=== PATIENT | female | born 1945 | race Caucasian/White ===

== ENCOUNTER 2018-12-08 12:37 | Inpatient (IN) | payer MEDICARE ==
--- NOTE | 2018-12-08 12:49 | ED ---
SOB HPI - General Chief Complaint: Shortness of Breath Stated Complaint: STEMI Time Seen by Provider: 12/08/18 12:37 Source: patient, EMS, RN notes reviewed Mode of arrival: EMS - History of Present Illness Initial Comments: This is a 71-year-old female with a prior history of coronary artery disease and stent placement status July started having shortness of breath about 11 to 11:30 this morning. She was found by paramedics to be dyspneic with a pulse ox in the 70s. This is on room air she does use medication at home we'll she denies any history of COPD or emphysema. She is a nonsmoker she was brought in by EMS she was found have evidence of an inferior wall myocardial infarction with ST elevations in leads II, III, and F aVF she became profoundly bradycardic and hypotensive she was given atropine 0.5 mg 2 as well as. She did seem to respond to this. A STEMI alert was called I did notify cardiology. Dr. Judd did come the emergency department upon the patient's arrival. Patient was noted be nauseated. Patient reports she is on Coumadin. MD Complaint: shortness of breath - Related Data Home Medications Medication Instructions Recorded Confirmed Atorvastatin [Lipitor] 80 mg PO DAILY 12/08/18 12/08/18 Bimatoprost [Lumigan .01% Ophth 1 drop RIGHT EYE DAILY 12/08/18 12/08/18 Soln] Budesonide/Formoterol Fumarate 1 puff INHALATION RT-BID 12/08/18 12/08/18 [Symbicort 80-4.5 Mcg Inhaler] Cholecalciferol [Vitamin D3 (25 1,000 unit PO DAILY 12/08/18 12/08/18 Mcg = 1000 Iu)] Clopidogrel [Plavix] 75 mg PO DAILY 12/08/18 12/08/18 Diltiazem Cd [Cardizem Cd] 120 mg PO DAILY 12/08/18 12/08/18 Dulaglutide [Trulicity] 1.5 mg SQ Q7D 12/08/18 12/08/18 Ferrous Sulfate [Feosol] 325 mg PO DAILY 12/08/18 12/08/18 Folic Acid 1 mg PO DAILY 12/08/18 12/08/18 INSULIN LISPRO (humaLOG) [humaLOG] 24 units SQ TID-W/MEALS 12/08/18 12/08/18 Insulin Detemir (Levemir) [Levemir] 48 unit SQ HS 12/08/18 12/08/18 Insulin Detemir (Levemir) [Levemir] 60 unit SQ DAILY 12/08/18 12/08/18 Isosorbide Mononitrate ER [Imdur] 30 mg PO DAILY 12/08/18 12/08/18 Lisinopril [Zestril] 5 mg PO DAILY 12/08/18 12/08/18 Warfarin [Coumadin] 1.25 mg PO DIRECTED 12/08/18 12/08/18 Warfarin [Coumadin] 1.25 mg PO DAILY 12/08/18 12/08/18 Allergies Allergy/AdvReac Type Severity Reaction Status Date / Time phenytoin [From Dilantin] Allergy Rash/Hives Verified 12/08/18 12:50 sulfamethoxazole Allergy Rash/Hives Verified 12/08/18 12:50 [From Bactrim] trimethoprim [From Bactrim] Allergy Rash/Hives Verified 12/08/18 12:50 Review of Systems ROS Statement: Those systems with pertinent positive or pertinent negative responses have been documented in the HPI. ROS Other: All systems not noted in ROS Statement are negative. General Exam - General Exam Comments Initial Comments: Is a well-developed well-nourished awake alert anxious appearing female General appearance: alert, anxious, in distress Head exam: Present: atraumatic, normocephalic, normal inspection Eye exam: Present: normal appearance, PERRL, EOMI. Absent: scleral icterus, conjunctival injection, periorbital swelling ENT exam: Present: normal exam, mucous membranes moist Neck exam: Present: normal inspection (No stridor JVD or bruits), full ROM, other Respiratory exam: Present: wheezes, decreased breath sounds Cardiovascular Exam: Present: regular rate GI/Abdominal exam: Present: soft, normal bowel sounds. Absent: distended, tenderness, guarding, rebound, rigid Extremities exam: Present: normal inspection, full ROM, normal capillary refill. Absent: tenderness, pedal edema, joint swelling, calf tenderness Back exam: Present: normal inspection Neurological exam: Present: alert, oriented X3, CN II-XII intact Psychiatric exam: Present: normal affect, anxious Skin exam: Present: dry, intact, cyanosis, diaphoretic. 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 Patient did get to do an absent route. This did seem to help her breathing initially. Reevaluation #2: 12/08/18 12:57 Attempts made to get records from [facility]. This is where she had a catheterization done. Reevaluation #3: 12/08/18 12:58 Attempt made to get EKG in this emergency department unsuccessful the patient did refuse initially. EKG submitted by EMS showed ST elevation in leads II, III, and F aVF with reciprocal aVL changes also ST depressions in leads 1 and V2 and V1 noted. Medical Decision Making - Medical Decision Making The patient will be admitted then go directly to [facility]. Dr. Judd did come the emergency department see the patient. Was noted be nauseated also hypotensive and bradycardic. Dr. Alexis was notified for city call. - Radiology Data Radiology results: image reviewed (Imaging was reviewed no evidence of increased pulmonary vascular markings poor inspiratory effort.) Critical Care Time Critical Care Time: Yes Critical Care Time: 31 minutes of critical care time which includes initial presentation with history physical labs x-rays multiple reevaluation of the patient discussion with the admitting physician Dr. Alexis discussion with Dr. Judd from cardiology as well as Dr. Xiong documentation of the above and initial admission orders. Disposition Clinical Impression: Acute ST elevation myocardial infarction, AMI inferior wall, Hypotensive episode, Bradycardia Disposition: ADMITTED IP TO THIS HOSP Condition: Critical
[2018-12-08] MEDS ORDERED: SODIUM CHLORIDE 0.9% 500 ML 500 ML IV ONE (12:55)
[2018-12-08] MEDS ORDERED: SODIUM CHLORIDE 0.9% 1,000 ML IV ONE (13:03)
[2018-12-08] MEDS ORDERED: fentaNYL (PF) 50 MCG/ML 2 ML AMP ONE (13:04)
[2018-12-08] MEDS ORDERED: fentaNYL (PF) 50 MCG/ML 2 ML AMP IVP ONE (13:05)
[2018-12-08] MEDS ORDERED: LIDOCAINE 1% INJ 10MG/ML (20 ML MDV) SQ ONE (13:06)
[2018-12-08] MEDS ORDERED: TICAGRELOR 90 MG TAB ONE (13:12)
[2018-12-08] MEDS ORDERED: BIVALIRUDIN BOLUS 250 MG/50 ML IV ONE (13:12)
[2018-12-08 13:13] LABS: Glucose,Whole Blood 441 mg/dL (75-99)
[2018-12-08] MEDS ORDERED: TICAGRELOR 90 MG TAB PO ONE (13:13)
[2018-12-08] MEDS ORDERED: BIVALIRUDIN 250 MG in SODIUM CHLORIDE 0.9% 50 ML IV ONE ×2 (13:13→13:54)
--- NOTE | 2018-12-08 13:13 | P.CRDCN ---
History of Present Illness Consult date: 12/08/18 Requesting physician: Diane Alexis Reason for Consult (text): Inferior ST elevation [place] Chief complaint: Shortness of breath, chest pressure History of present illness: This is a 73-year-old female with known history of diabetes, hypertension, hyperlipidemia, obesity, history of a blood clot in the right lower extremity for which the patient is on Coumadin, she also has a history of coronary artery disease for which she has underwent stent placement at [facility], exact details of that currently unavailable. Patient was brought to the emergency center via EMS, EMS was called because the patient states that she could not breathe. She did have a pressure sensation in her chest as well. On arrival there and EKG was performed by EMS which showed ST elevation in the inferior leads and patient was brought to [facility]. On the way here, patient did become quite hypotensive and bradycardic requiring atropine administration. On her arrival to the emergency room, she continued to have ST elevation in the inferior leads, states that she was quite nauseated short of breath and felt like she was going to pass out. Her rhythm showed normal sinus rhythm with persistence in ST elevation in the inferior leads. Her blood pressure was 87/40. Patient was advised that she would need to go to the [facility] and have an emergent cardiac catheterization performed, the risks and the benefits were explained to the patient in detail and she was willing to proceed. We do not currently have any lab data, or report of any chest x-ray. Patient was brought directly to the [facility]. Her home medications included Lipitor 80 mg daily, Coumadin 1.25 mg one daily week and 2.56 days a week, Plavix 75 mg daily, Imdur 30 mg daily, B12, folic acid, Levemir, lisinopril 5 mg daily, Symbicort, vitamin D, Cardizem 120 mg daily, Humalog insulin and Trulicity once a week. Past Medical History Past Medical History: Unable to Obtain History of Any Multi-Drug Resistant Organisms: None Reported Past Surgical History: Heart Catheterization With Stent Past Psychological History: No Psychological Hx Reported Smoking Status: Unknown if ever smoked Past Alcohol Use History: Unable to Obtain Past Drug Use History: Unable to Obtain Medications and Allergies Home Medications Medication Instructions Recorded Confirmed Type Atorvastatin [Lipitor] 80 mg PO DAILY 12/08/18 12/08/18 History Bimatoprost [Lumigan .01% Ophth 1 drop RIGHT EYE DAILY 12/08/18 12/08/18 History Soln] Cholecalciferol [Vitamin D3 (25 1,000 unit PO DAILY 12/08/18 12/08/18 History Mcg = 1000 Iu)] Clopidogrel [Plavix] 75 mg PO DAILY 12/08/18 12/08/18 History Diltiazem Cd [Cardizem Cd] 120 mg PO DAILY 12/08/18 12/08/18 History Dulaglutide [Trulicity] 0.75 mg SQ Q7D 12/08/18 12/08/18 History Ferrous Sulfate [Feosol] 325 mg PO DAILY 12/08/18 12/08/18 History Folic Acid 1 mg PO DAILY 12/08/18 12/08/18 History INSULIN LISPRO (humaLOG) [humaLOG] 24 units SQ TID-W/MEALS 12/08/18 12/08/18 History Insulin Detemir (Levemir) [Levemir] 48 unit SQ HS 12/08/18 12/08/18 History Insulin Detemir (Levemir) [Levemir] 60 unit SQ DAILY 12/08/18 12/08/18 History Isosorbide Mononitrate ER [Imdur] 30 mg PO DAILY 12/08/18 12/08/18 History Lisinopril [Zestril] 5 mg PO DAILY 12/08/18 12/08/18 History Warfarin [Coumadin] 1.25 mg PO DAILY 12/08/18 12/08/18 History Warfarin [Coumadin] 1.25 mg PO DAILY 12/08/18 12/08/18 History Allergies Allergy/AdvReac Type Severity Reaction Status Date / Time phenytoin [From Dilantin] Allergy Rash/Hives Verified 12/08/18 12:50 sulfamethoxazole Allergy Rash/Hives Verified 12/08/18 12:50 [From Bactrim] trimethoprim [From Bactrim] Allergy Rash/Hives Verified 12/08/18 12:50 Physical Exam Vitals: Vital Signs Temp Pulse Pulse Resp BP Pulse Ox 12/08/18 12:45 53 L 12/08/18 12:38 97.1 F L 53 L 12 87/42 100 Intake and Output 12/07/18 12/08/18 12/08/18 22:59 06:59 14:59 Other: Weight 90.718 kg PHYSICAL EXAMINATION: GENERAL: 73-year-old female in mild distress at the time of my examination HEENT: Head is atraumatic, normocephalic. Pupils equal, round. Sclera anicteric. Conjunctiva are clear. Mucous membranes of the mouth are moist. Neck is supple. There is no elevated jugular venous pressure. No carotid bruit is heard. HEART EXAMINATION: Heart S1 and S2, distant CHEST EXAMINATION: Revealed decreased air exchange throughout ABDOMEN: Soft, obese, nontender. 2 separate umbilicus hernia is noted. Bowel sounds are heard. No organomegaly noted. EXTREMITIES:1+ peripheral pulses with evidence of peripheral edema and no calf tenderness noted. NEUROLOGIC patient is awake, alert and oriented 3 . . Results Intake and Output 12/07/18 12/08/18 12/08/18 22:59 06:59 14:59 Other: Weight 90.718 kg Patient Weight 12/09/18 06:59 Weight 90.718 kg EKG Interpretations (text) EKG shows a normal sinus rhythm with ST elevation in the inferior leads and lateral ST depression depression noted. Assessment and Plan Plan: Assessment and plan #[address] elevation myocardial infarction #2 history of coronary artery disease with prior stent placements #3 hypertension history #4 hyperlipidemia #5 diabetes #6 obesity #7 history of blood clots to the right lower extremity for which the patient was on Coumadin Plan Patient was advised to emergently go to the cardiac catheterization lab, for heart catheterization. Risks and benefits were explained to her in detail. Further recommendations will follow. DNP note has been reviewed, I agree with a documented findings and plan of care. Patient was seen and examined.
--- NOTE | 2018-12-08 13:13 | XR ---
EXAMINATION TYPE: XR chest 1V portable DATE OF EXAM: 12/08/2018 COMPARISON: NONE HISTORY: Chest pain TECHNIQUE: Single frontal view of the chest is obtained. FINDINGS: Limited inspiration with prominent interstitium. No pleural effusion or pneumothorax. Arth ropathy of the shoulders. Heart size normal. No consolidation. IMPRESSION: Correlate for mild venous congestion or interstitial pneumonitis.
[2018-12-08] MEDS ORDERED: IOPAMIDOL-370 125ML BTL INJ ONE (13:55)
[2018-12-08 14:02] LABS: Potassium 4.9 mmol/L (3.5-5.1)
[2018-12-08 14:03] LABS: Creatine Kinase 156 U/L (30-135)
[2018-12-08] MEDS ORDERED: IOPAMIDOL-370 100ML BTL INJ ONE (14:05)
[2018-12-08 14:07] LABS: Basophils % (A) 0 %; Eosinophils % (A) 1 %; HGB 10.3 gm/dL (11.4-16.0); Lymphocytes # (A) 0.5 k/uL (1.0-4.8); Lymphocytes % (A) 6 %; MCH 29.9 pg (25.0-35.0); MCHC 32.3 g/dL (31.0-37.0); MCV 92.5 fL (80.0-100.0); Mean Platelet Volume 7.6; Monocytes # (A) 0.4 k/uL (0-1.0); Monocytes % (A) 5 %; Neutrophils # (A) 7.5 k/uL (1.3-7.7); Neutrophils % (A) 88 %; Platelet Count 246 k/uL (150-450); RBC 3.46 m/uL (3.80-5.40); RDW 13.8 % (11.5-15.5); WBC 8.5 k/uL (3.8-10.6)
[2018-12-08 14:15] LABS: Creatine Kinase MB 2.7 ng/mL (0.0-2.4); Troponin I <0.012 ng/mL (0.000-0.034)
[2018-12-08] MEDS ORDERED: NITROGLYCERIN SL TABS 0.4 MG TAB SUBLINGUAL PRN (14:16)
[2018-12-08] MEDS ORDERED: ATROPINE SULFATE 0.1 MG/ML 10ML SYRINGE IV PRN (14:16)
[2018-12-08] MEDS ORDERED: ZOLPIDEM 5 MG TAB PO PRN (14:16)
[2018-12-08] MEDS ORDERED: RX INFO: IV CONTRAST WAS GIVEN 1 EACH MISC MISCELLANE PRN (14:16)
[2018-12-08] MEDS ORDERED: MAG HYDROX/AL HYDROX/SIMETH 30 ML CUP PO PRN (14:16)
[2018-12-08 14:25] LABS: Glucose,Whole Blood 422 mg/dL (75-99)
[2018-12-08] MEDS ORDERED: SODIUM CHLORIDE 0.9% 1,000 ML IV SCH (14:30)
[2018-12-08] MEDS ORDERED: NON-FORMULARY DRUG (Dulaglutide [Trulicity] 1.5 MG) SQ SCH (14:30)
--- NOTE | 2018-12-08 14:39 | CC ---
CARDIAC CATHETERIZATION REPORT Mrs Lombardi is a 73-year-old female, history of hypertension, hyperlipidemia, diabetes mellitus, multiple stenting of the right coronary artery done in [facility], most recently in July of 2017 who presented to the emergency room with an acute inferior myocardial infarction. In view of that, recommendation made regarding cardiac catheterization. The procedures, risks and complications were discussed with the patient who is in full understanding and agreement. PROCEDURE: Patient was brought to labor relations director in a fasting semi-sedated state after receiving fentanyl and Benadryl and achieving moderate conscious sedated state. Using Xylocaine anesthesia and Seldinger technique, a 6-Romanian sheath was introduced in the right femoral artery. Right coronary angiography was performed using 6-Romanian FR4 guiding catheter. After performing angioplasty and stenting, the 6-Romanian left Jessica catheter was used and images of the left coronary artery system were obtained. Following that, a 6-Romanian tight pigtail catheter was introduced in the left ventricle and pressures were calculated. Following that, catheter and sheaths were removed. Hemostasis was obtained with deployment of an Angio-Seal. There was no immediate complication. The patient was returned to his room in stable condition. FINDINGS: FLUOROSCOPY: There was calcification involving the coronary tree. LEFT MAIN: This is a large-sized vessel, bifurcating into left circumflex, left anterior descending artery. Left main coronary artery has no evidence of high-grade stenosis. LEFT ANTERIOR DESCENDING ARTERY: This is a large-sized vessel, reaching toward the apex with a wraparound apex segment, giving rise to a diagonal branch of moderate caliber in mid segment. The left anterior descending artery proximally has 20% to 30%. The diagonal branch has a 40% to 50% plaque in the proximal segment. The rest of the vessel has no high-grade stenosis. LEFT CIRCUMFLEX: This is a nondominant vessel, giving rise to obtuse marginal branch. The left circumflex is quite tortuous proximally. It has a plaque of 30% to 40% in the mid segment. The rest of the vessel has no high-grade stenosis. RIGHT CORONARY ARTERY: This vessel is totally occluded proximally with no antegrade flow. There is a long segment of stented vessel. The occlusion is at the beginning of the proximal edge of the stent. LEFT VENTRICULOGRAM: Left ventriculogram is not performed. HEMODYNAMICS: There was no gradient across the aortic valve. The left ventricular end-diastolic pressure was 16 to 20 mmHg. CONCLUSION: 1. Acutely occluded right coronary artery and a long-stented segment. 2. Calcified coronary arteries. 3. Mild disease in the left anterior descending artery and the left circumflex. RECOMMENDATION: In view of finding anatomy, I recommend proceeding with angioplasty and stenting. The procedures, risks and complication were discussed with the patient who is in full understanding and agreement. MMODL / IJN: [id number] /
--- NOTE | 2018-12-08 14:42 | PTCA ---
PERCUTANEOUSTRANS CORORONARY ANGIOGRAPHY Mrs. Lombardi is a 73-year-old female with known history of hypertension, hyperlipidemia, diabetes mellitus, and multiple stenting of the right coronary artery who presented with an acute inferior myocardial infarction. She underwent cardiac catheterization, was found to have a totally occluded right coronary artery. In view of that, recommendation was made regarding angioplasty and stenting. The procedures, risks and complication were discussed with the patient, who is in full understanding and agreement. PROCEDURE: Using the 6-Chilean FR4 guiding catheter, a 0.014 balanced medium weight J-wire with the help of a Fine Cross catheter was advanced across the total occlusion, positioned in the distal vessel. Subsequently, a 2.5 x 12 mm Trek balloon was advanced and multiple inflations throughout the vessel at maximum of 14 atmospheres were done. Following that, the balloon was removed and another 0.014 balanced medium weight J-wire was advanced next to the first one in a krystal fashion and a 2.75 x 8 mm NC Trek balloon was advanced in the distal segment and inflation up to 14 atmospheres was done. Following that, the balloon was removed and a 2.5 x 15 mm Xience Yudy stent was deployed distally and post dilated at 16 atmospheres. Following that, the balloon was removed and a 2.75 x 15 mm NC Trek balloon was advanced and multiple inflations throughout the course of the prior stented segment were performed at a maximum of 14 atmospheres. After the last inflation, after appropriate wait, the balloon and the guidewire were withdrawn back in the guiding catheter. Images were obtained and repeated. Those images reveal stable successful stenting. At that point, left coronary angiogram was performed as well as measurement of the left ventricular end-diastolic pressure was performed from the catheter and sheath were removed. Hemostasis was obtained with deployment of an Angio-Seal. There was no immediate complication. Patient was returned to room in stable condition. Of note, the patient received Angiomax per protocol as well as oral loading dose of Brilinta. She had no chest discomfort or EKG changes at the end of the procedure. RESULTS: Successful recanalization of a long stented segment of the right coronary artery with reduction of stenosis from 100% to less than 5%. RECOMMENDATION: Patient be continued on aspirin, Brilinta, beta anna, and statin. The importance of dual antiplatelet treatment were discussed with the patient and her family and they are in full understanding and agreement. MMODL / IJN: [id number] /
[2018-12-08 15:59] LABS: INR 2.2 (<1.2); Partial Thromboplastin Time 61.6 sec (22.0-30.0); Prothrombin Time 21.9 sec (9.0-12.0)
[2018-12-08] MEDS: INSULIN ASPART (NovoLOG) 100 UNIT/ML VIAL SQ SCH (17:12)
[2018-12-08 17:30] LABS: Glucose,Whole Blood 376 mg/dL (75-99)
[2018-12-08 18:48] LABS: Glucose,Whole Blood 368 mg/dL (75-99)
[2018-12-08] MEDS ORDERED: Magnesium Replacement Protocol 1 EACH MISC MISCELLANE PRN (19:05)
[2018-12-08] MEDS: MAGNESIUM SULFATE-D5W PMX 1 GM in DEXTROSE/WATER 1 100ML.BAG IVPB SCH ×3 (19:31→22:51)
[2018-12-08 19:57] LABS: Glucose,Whole Blood 359 mg/dL (75-99)
[2018-12-08] MEDS ORDERED: INSULIN REGULAR 100 UNIT in SODIUM CHLORIDE 0.9% 100 ML IV SCH (20:30)
[2018-12-08] MEDS: SYMBICORT 80-4.5 MCG INHALER INHALATION SCH (20:31)
[2018-12-08 20:55] LABS: Glucose,Whole Blood 368 mg/dL (75-99)
[2018-12-08] MEDS ORDERED: INSULIN ASPART (NovoLOG) 100 UNIT/ML VIAL SQ SCH (21:00)
[2018-12-08] MEDS: TICAGRELOR 90 MG TAB PO SCH (21:18)
[2018-12-08] MEDS: ATORVASTATIN 80 MG TAB PO SCH (21:18)
[2018-12-08] MEDS: INSULIN DETEMIR (LEVEMIR) 100 UNIT/ML SYR SQ SCH (21:18)
[2018-12-08 21:27] LABS: Appearance,Urine Clear (Clear); Bilirubin,Urine Negative (Negative); Blood,Urine Negative (Negative); Color,Urine Light Yellow; Glucose,Urine (UA) 4+ (Negative); Ketones,Urine Negative (Negative); Leukocyte Esterase,Urine Trace (Negative); Mucus,Urine Rare /hpf; Nitrite,Urine Negative (Negative); Protein,Urine Negative (Negative); RBC,Urine 2 /hpf (0-5); Specific Gravity,Urine 1.034 (1.001-1.035); Squamous Epithelial Cell,Urine 1 /hpf (0-4); Urobilinogen,Urine <2.0 mg/dL (<2.0); WBC,Urine 7 /hpf (0-5)
[2018-12-08 22:34] LABS: Glucose,Whole Blood 325 mg/dL (75-99)
[2018-12-08 23:49] LABS: Glucose,Whole Blood 295 mg/dL (75-99)
[2018-12-09 01:21] LABS: Glucose,Whole Blood 212 mg/dL (75-99)
[2018-12-09 02:05] LABS: Glucose,Whole Blood 183 mg/dL (75-99)
[2018-12-09 03:18] LABS: Glucose,Whole Blood 142 mg/dL (75-99)
[2018-12-09 04:35] LABS: Glucose,Whole Blood 139 mg/dL (75-99)
[2018-12-09 05:47] LABS: Basophils % (A) 0 %; Eosinophils % (A) 0 %; HCT 35.6 % (34.0-46.0); HGB 11.7 gm/dL (11.4-16.0); Lymphocytes # (A) 0.7 k/uL (1.0-4.8); Lymphocytes % (A) 6 %; MCH 30.2 pg (25.0-35.0); MCHC 32.7 g/dL (31.0-37.0); MCV 92.4 fL (80.0-100.0); Mean Platelet Volume 7.4; Monocytes % (A) 9 %; Neutrophils # (A) 8.5 k/uL (1.3-7.7); Neutrophils % (A) 82 %; Platelet Count 287 k/uL (150-450); RBC 3.85 m/uL (3.80-5.40); RDW 14.1 % (11.5-15.5); WBC 10.4 k/uL (3.8-10.6)
[2018-12-09 05:54] LABS: Glucose,Whole Blood 130 mg/dL (75-99)
[2018-12-09 05:57] LABS: INR 1.5 (<1.2); Prothrombin Time 14.9 sec (9.0-12.0)
[2018-12-09 06:04] LABS: Calcium 9.6 mg/dL (8.4-10.2); Potassium 4.5 mmol/L (3.5-5.1)
--- NOTE | 2018-12-09 06:47 | HP ---
HISTORY AND PHYSICAL CHIEF COMPLAINT: Chest discomfort. HISTORY OF PRESENT ILLNESS: This 73-year-old woman with a past medical history of multiple medical problems including hypertension, hyperlipidemia, history of DVT who was on Coumadin, being followed by Dr. Ace in the outpatient setting apparently had chest discomfort. The patient had previous history of cardiac stent placement in [facility]. The patient also feels like heaviness and a feeling of pressure in the anterior part of the chest. Patient came to [facility] and admitted for evaluation and treatment. The EKG showed ST elevation in inferior leads. The patient also has some hypertension and bradycardia. The patient underwent cardiac catheterization and RCA stenting by Cardiology. Patient closely monitored. There is no history of fever or rigors. No history of headache, loss of consciousness. No history of any palpitations, hematochezia or melena at this time. Blood sugars also elevated. Blood sugars already elevated around 300 in the morning, according to her. After admission, it has gone up to 383. PAST MEDICAL HISTORY: History of hypertension, history of hyperlipidemia, history of coronary artery disease and stent. MEDICATIONS: Home medications are: 1. Coumadin 1.25 mg p.r.n. and 1.25 mg daily. 2. Levemir 48 units subcu q.h.s. and 60 units subcu daily. 3. Humalog 24 units t.i.d. with meals. 4. Plavix 75 mg p.o. daily. 5. Lumigan 1 drop right eye daily. 6. Trulicity 1.5 q.7 days, stopped recently. 7. Symbicort 80/4.5 one puff b.i.d. 8. Zestril 5 mg p.o. daily. 9. Imdur 30 mg p.o. daily. 10.Folic acid 1 mg daily. 11.Iron sulfate 325 mg p.o. daily. 12.Cardizem CD 120 mg daily. 13.Vitamin D3, 1000 daily. 14.Lipitor 80 mg p.o. daily. ALLERGIES: Allergies are PHENYTOIN, BACTRIM. FAMILY HISTORY: No history of heart disease or strokes in the family. SOCIAL HISTORY: No history of smoking. No history of alcohol intake. REVIEW OF SYSTEMS: ENT: No diminished hearing or diminished vision. CARDIOVASCULAR SYSTEM: As mentioned earlier. RESPIRATORY SYSTEM: As mentioned earlier. GI: No nausea. : No dysuria. NERVOUS SYSTEM: No numbness or weakness. ALLERGY/IMMUNOLOGY: No history of asthma. MUSCULOSKELETAL: As mentioned earlier. HEMATOLOGY/ONCOLOGY: No history of anemia. ENDOCRINE: Diabetes. CONSTITUTIONAL: As mentioned earlier. DERMATOLOGY: Negative. RHEUMATOLOGY: Negative. PSYCHIATRY: As mentioned earlier. PHYSICAL EXAMINATION: The patient is alert and oriented x3. Pulse 54, blood pressure 144/97, respiration 18, temperature 97.7, pulse ox 94% on 2 L. HEENT: Conjunctivae normal. Oral mucosa moist. NECK: No jugular venous distention. No carotid bruit. No lymph node enlargement. CARDIOVASCULAR: S1, S2 muffled. RESPIRATORY: Breath sounds diminished at the bases. No rhonchi, no crackles. ABDOMEN: Soft, nontender. No mass palpable. LEGS: No edema. No swelling. NERVOUS SYSTEM: Higher functions as mentioned earlier. Moves all 4 limbs. LYMPHATICS: No lymphadenopathy of the neck, axillae or groin. SKIN: No ulcer, rash or bleeding. JOINTS: No active deforming arthropathy. LABS: Labs are at this time troponin 30.80. WBC 8.5, hemoglobin 10.3. Sodium 137, potassium 4.9, creatinine is 1.45, glucose 457 and magnesium 1.2. ASSESSMENT: 1. Acute ST-elevation inferior myocardial infarction, status post cardiac catheterization and stenting of the RCA. 2. Diabetes mellitus type 2, uncontrolled with hyperglycemia. 3. Hypomagnesemia. 4. Increased creatinine with possible acute renal failure prerenal. 5. Anemia, normocytic anemia of chronic disease. 6. Troponin elevated 30.8. 7. Possible cardiogenic shock. 8. History of coronary artery disease, stent. 9. Hypertension. 10.Hyperlipidemia. 11.Coumadin monitoring. 12.Diabetes mellitus type 2. 13.FULL CODE. RECOMMENDATIONS AND DISCUSSION: In this 73-year-old woman who presented with multiple complex medical issues, will monitor the patient closely. Continue the current medications. Continue symptomatic treatment. The patient is in ICU. Currently I would recommend insulin drip until the blood sugars are less than 200 and then resume the Levemir and insulin scale at that point. Otherwise, continue with dual antiplatelet therapies as suggested by Cardiology. We will resume the rest of the home medications, DVT prophylaxis, incentive spirometry. Will follow the patient closely. Will monitor fluid and electrolyte balance closely and the initial chest x-ray showed some mild venous congestion. Will repeat magnesium as well. A 2 D echo as noted by Cardiology. Guarded prognosis. Further recommendations to follow. A copy of dictation for to Dr. Ace who is the primary physician. MMODL / IJN: [id number] / MTDD
[2018-12-09 07:42] LABS: Glucose,Whole Blood 161 mg/dL (75-99)
[2018-12-09] MEDS: INSULIN ASPART (NovoLOG) 100 UNIT/ML VIAL SQ SCH ×7 (07:46→20:53)
[2018-12-09] MEDS: INSULIN DETEMIR (LEVEMIR) 100 UNIT/ML SYR SQ SCH ×2 (07:47→20:53)
[2018-12-09] MEDS: SYMBICORT 80-4.5 MCG INHALER INHALATION SCH (07:53)
[2018-12-09] MEDS ORDERED: LISINOPRIL 5 MG TAB PO SCH ×2 (09:00)
[2018-12-09] MEDS ORDERED: IPRATROPIUM-ALBUTEROL 3 ML NEB INHALATION PRN (09:04)
--- NOTE | 2018-12-09 10:30 | PN ---
PROGRESS NOTE Mrs. Lombardi is a 73-year-old female with known history of multiple stenting of the right coronary artery, who presented with acute inferior myocardial infarction. She underwent is recannulization of totally occluded RCA that had multiple stent in a long segment that has been addressed in the past. She is feeling well this morning. Hemodynamically stable. She has no discomfort or dyspnea. She denies any dizziness or palpitation. She continues to have a cough that she had prior to admission related to a bronchitis. She denies any nausea or vomiting. She has no malignant arrhythmia. She continues to be on aspirin once a day, Lipitor 80 mg daily, Trulicity insulin, lisinopril 5 mg daily and Brilinta 90 mg twice a day. PHYSICAL EXAMINATION: Blood pressure running in the 140s to 160s with the heart rate in the 40s. LUNGS: No wheezes with few crackles. HEART: Regular rate and rhythm. S1, S2. No S3. No rub. ABDOMEN: Soft, nontender, obese. EXTREMITIES: Chronic discoloration. RIGHT GROIN: No hematoma. LAB DATA: Lab data revealed BUN and creatinine 33 and 0.94, potassium of 4.5. Cholesterol 153, LDL of 60. Hemoglobin of 11.7. Her troponin peak is 39.2. IMPRESSION: 1. Acute inferior myocardial infarction, status post stenting of the RCA in acute occlusion. Her last stent was in July 2017. 2. Symptoms consistent with bronchitis. 3. History of hypertension. 4. Diabetes. 5. Hyperlipidemia. 6. History of deep venous thrombosis. RECOMMENDATION: From the cardiac standpoint, we will continue present therapy. I will review the results for echocardiogram. She should be able to be transferred to telemetry floor. I will obtain the input of Dr. Blevins regarding her bronchitis. At this time, I will continue on the aspirin, Brilinta and subsequently I will reinitiate anticoagulation. MMODL / IJN: [id number] /
--- NOTE | 2018-12-09 10:49 | ECHOF ---
Referral Reason:mi MEASUREMENTS -------- HEIGHT: 165.1 cm WEIGHT: 90.7 kg BP: 161/69 RVIDd: 2.9 cm (< 3.3) IVSd: 1.2 cm (0.6 - 1.1) LVIDd: 3.2 cm (3.9 - 5.3) LVPWd: 1.2 cm (0.6 - 1.1) IVSs: 2.0 cm LVIDs: 1.6 cm LVPWs: 1.2 cm Ao Diam: 2.7 cm (2.0 - 3.7) AV Cusp: 1.7 cm (1.5 - 2.6) LA Diam: 2.9 cm (2.7 - 3.8) MV EXCURSION: 13.536 mm (> 18.000) MV EF SLOPE: 45 mm/s (70 - 150) EPSS: 0.3 cm MV E Ivan: 1.40 m/s MV DecT: 235 ms MV A Ivan: 0.97 m/s MV E/A Ratio: 1.44 AV maxP.26 mmHg AV meanP.92 mmHg RAP: 5.00 mmHg RVSP: 32.22 mmHg FINDINGS -------- Sinus rhythm. This was a technically difficult study with suboptimal views. The left ventricular size is normal. There is mild concentric left ventricular hypertrophy. Overa ll left ventricular systolic function is normal with, an EF between 55 - 60 %. The right ventricle is normal in size. The left atrial size is normal. The right atrial size is normal. Lumason used Interatrial and interventricular septum intact. Aortic valve is trileaflet and is mildly thickened. The mitral valve leaflets are mildly thickened. Mild mitral regurgitation is present. Mild tricuspid regurgitation present. Right ventricular systolic pressure is normal at < 35 mmHg. There is no pulmonic regurgitation present. The aortic root size is normal. IVC Not well visulized. CONCLUSIONS -------- 1. Sinus rhythm. 2. This was a technically difficult study with suboptimal views. 3. The left ventricular size is normal. 4. There is mild concentric left ventricular hypertrophy. 5. Overall left ventricular systolic function is normal with, an EF between 55 - 60 %. 6. The right ventricle is normal in size. 7. The left atrial size is normal. 8. The right atrial size is normal. 9. Lumason used 10. Interatrial and interventricular septum intact. 11. Aortic valve is trileaflet and is mildly thickened. 12. The mitral valve leaflets are mildly thickened. 13. Mild mitral regurgitation is present. 14. Mild tricuspid regurgitation present. 15. Right ventricular systolic pressure is normal at < 35 mmHg. 16. There is no pulmonic regurgitation present. 17. The aortic root size is normal. 18. IVC Not well visulized. [employer] TECH: Carlene Bender RDCS
[2018-12-09] MEDS: CHOLECALCIFEROL 1,000 UNIT TAB PO SCH (10:58)
[2018-12-09] MEDS: ASPIRIN 81 MG PO SCH (10:58)
[2018-12-09] MEDS: TICAGRELOR 90 MG TAB PO SCH ×2 (10:58→20:54)
[2018-12-09] MEDS: FOLIC ACID 1 MG TAB PO SCH (10:58)
[2018-12-09] MEDS: FERROUS SULFATE 325 MG TAB PO SCH (10:58)
[2018-12-09] MEDS: AMOXIC-POT CLAV 875-125MG 1 EACH TAB PO SCH ×2 (10:59→20:53)
[2018-12-09] MEDS: methylPREDNISolone SOD SUCCI 40 MG/ML 1 ML VIAL IV SCH ×2 (11:12→20:54)
[2018-12-09] MEDS: IPRATROPIUM-ALBUTEROL 3 ML NEB INHALATION SCH ×3 (11:22→19:53)
[2018-12-09 12:09] LABS: Glucose,Whole Blood 90 mg/dL (75-99)
[2018-12-09 13:17] VITALS: BMI 34.4
--- NOTE | 2018-12-09 13:17 | XR ---
EXAMINATION TYPE: XR chest 1V portable DATE OF EXAM: 12/09/2018 COMPARISON: Prior chest x-ray 12/08/2018 HISTORY: Congestive heart failure TECHNIQUE: Single frontal view of the chest is obtained. FINDINGS: There is improvement in aeration as compared to prior exam. There are overlying cardiac aly ds. Patient is rotated. There is no focal air space opacity, pleural effusion, or pneumothorax seen. The cardiac silhouette size is within normal limits. The osseous structures are intact. IMPRESSION: No acute process.
[2018-12-09 13:38] LABS: Hemoglobin A1C 8.6 % (4.0-6.0)
--- NOTE | 2018-12-09 14:05 | PN ---
PROGRESS NOTE DATE OF SERVICE: 12/09/2018 This 73-year-old woman is admitted with acute inferior myocardial infarction with cardiac catheterization with stenting also. A 2D echo with Doppler done today showed ejection fraction 55% to 60%. The patient also complains of cough at this time. The possibility of bronchitis is also considered. The blood sugar is elevated to 131, 161. INR is 1.5. PAST MEDICAL HISTORY: Reviewed. REVIEW OF SYSTEMS: CARDIOVASCULAR SYSTEM: As mentioned earlier. RESPIRATORY: As mentioned earlier. GI: No nausea. : No dysuria. NERVOUS SYSTEM: No numbness or weakness. CURRENT MEDICATIONS: Reviewed include: 1. Maalox 30 mg q.4 p.r.n. 2. DuoNeb q.i.d. and p.r.n. 3. Augmentin 875 mg p.o. b.i.d. 4. Aspirin 81 mg daily. 5. Lipitor 80 mg q.h.s. 6. Atropine 0.5. 7. Pulmicort 0.1 mg b.i.d. 8. Vitamin D3 one thousand daily. 9. Iron sulfate 325 mg daily. 10.Folic acid 1 mg daily. 11.Perforomist 20 mcg b.i.d. 12.NovoLog t.i.d. 13.Levemir 42 units subcu q.h.s. 14.Zestril 5 mg p.o. b.i.d. 15.Solu-Medrol 40 IV b.i.d. 16.Nitrostat. 17.Trulicity 1.5 subcu 7 days. 18.Brilinta. 19.Ambien. PHYSICAL EXAM: Patient is alert, oriented x3. Pulse is 57, blood pressure 131/60, respiration 24, temperature 97.8, pulse ox 94% on 2 L. HEENT: Conjunctivae normal. NECK: No jugular venous distention. No lymph node enlarged. CARDIOVASCULAR SYSTEM: S1, S2, muffled, normal. RESPIRATORY: Breath sounds diminished at the bases, a few scattered rhonchi, no crackles. ABDOMEN: Soft, nontender. No mass palpable. LEGS: No edema. No swelling. NERVOUS SYSTEM: Higher functions as mentioned earlier, moves all four limbs, no focal motor deficits. LYMPHATICS: No lymph node enlargement in the neck or axillae. SKIN: No ulcer, rash, bleeding. JOINTS: No active deformity. LABS: WBC is 10.1, hemoglobin is 11.6, sodium 130, potassium 4.5. ASSESSMENT: 1. Acute ST-segment elevation myocardial infarction, status post cardiac catheterization and stenting of the right coronary artery. 2. Diabetes mellitus type 2, uncontrolled with hyperglycemia. 3. Hypomagnesemia. 4. Possible acute bronchitis. 5. Increased creatinine with possible mild acute renal failure, prerenal, improved. 6. Anemia, normocytic anemia of chronic disease. 7. Troponin elevated to 30.8. 8. Possible cardiogenic shock present on admission. 9. History of Coronary artery disease, stent/. 10.Hypertension. 11.Hyperlipidemia. 12.Coumadin monitor. 13.Diabetes mellitus type 2. 14.FULL CODE. RECOMMENDATION: In this 73-year-old woman who presented with multiple complex medical issues, will monitor the patient closely. Continue with the current management and symptomatic treatment. Continue with the bronchodilators, empiric antibiotics. Continue with dual antiplatelet treatment. Close follow up with Cardiology and Pulmonology. Chest x-ray on admission, personally reviewed, I would recommend a repeat chest x-ray to rule out any evidence of any CHF at this time. Otherwise, continue to monitor. Further recommendations to follow. MMODL / IJN: [id number] /
[2018-12-09] MEDS ORDERED: LISINOPRIL 5 MG TAB PO STA (14:08)
--- NOTE | 2018-12-09 18:09 | P.CNPUL ---
History of Present Illness Consult date: 12/09/18 Reason for consult: dyspnea, chest pain History of present illness: This is a 73-year-old female patient, who was having symptoms of bronchitis on outpatient basis. The patient was having increased cough congestion chest that isn't wheezing and for that reason she was seen by primary care physician she was given a course of antibiotics and steroids. She typically treatment for approximately a week and following that her condition got worse and she started having pressure-like sensation across her chest and nausea and increased shortness of breath. At that point, EMS was called to the scene and the patient was found to have ST segment elevation in inferior leads in addition to sinus bradycardia. She was given a dose of atropine without any benefit. She was immediately transferred to our hospital which was taken to the [facility] and the patient was found to have acute STEMI involving the inferior wall and the patient was given cardiac catheterization and stenting of the RCA. Noted the patient is known to have coronary artery disease. She has received most of the cardiac care through [facility] and she has undergone previous coronary intervention stenting in the past. Please refer to the results of the cardiac catheterization that was done which showed a occluded the right RCA that was stented. In addition there was calcified coronaries and mild disease involving the LAD and the circumflex. Currently she is in intensive care unit. Echocardiogram was done this morning and showed a preserved LV function with an ejection fraction of 55-60%. Mild concentric LVH. The intraventricular septum is intact. No significant valvular abnormalities. The patient's troponin peaked at 39.2. Currently she is on aspirin. She is on the Brillinta. 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 In fact her INR admission was therapeutic and earlier this morning the INR dropped down to 1.5. Anticoagulation was not resumed yet or the time being. No major swelling in lower extremities. No calf pain or tenderness. She is known to have hypertension and hyperlipidemia. She is also diabetic. The patient is fairly of any chest pain this morning. She is still congested bronchospastic and wheezy. The chest x-ray was done this morning it showed no acute process. There is improvement in aeration compared to the previous x-ray from yesterday. No focal airspace disease. No fever. No chills. No hemoptysis. She is a nonsmoker. Review of Systems Constitutional: Reports fatigue, Reports poor appetite, Reports weakness Eyes: denies blurred vision, denies bulging eye, denies decreased vision Ears: deny: decreased hearing, ear discharge, earache, tinnitus Ears, nose, mouth and throat: Denies headache, Denies sore throat Cardiovascular: Reports chest pain, Reports decreased exercise tolerance, Reports dyspnea on exertion Respiratory: Reports cough, Reports dyspnea, Reports wheezing Gastrointestinal: Denies abdominal pain, Denies diarrhea, Denies nausea, Denies vomiting Genitourinary: Denies dysuria, Denies hematuria Menstruation: Reports as per HPI Musculoskeletal: Reports as per HPI Musculoskeletal: absent: ankle pain, ankle stiffness, ankle swelling Integumentary: Reports as per HPI Neurological: Reports weakness Psychiatric: Reports as per HPI Endocrine: Reports as per HPI Hematologic/Lymphatic: Reports as per HPI Allergic/Immunologic: Reports as per HPI Past Medical History Past Medical History: Unable to Obtain, Coronary Artery Disease (CAD), Diabetes Mellitus, Deep Vein Thrombosis (DVT), Hyperlipidemia, Hypertension Additional Past Medical History / Comment(s): 5 DVT's RLE Last Myocardial Infarction Date:: 12/08/18 History of Any Multi-Drug Resistant Organisms: None Reported Past Surgical History: Heart Catheterization With Stent Additional Past Surgical History / Comment(s): cataract surgery, left shoulder surgery, carpel tunnel left wrist, heart stents 3 in july 2017, 19 february 2017, 17 Nov 2018 Past Anesthesia/Blood Transfusion Reactions: No Reported Reaction Date of Last Stent Placement:: 12/08/18 Past Psychological History: No Psychological Hx Reported Smoking Status: Unknown if ever smoked Past Alcohol Use History: Unable to Obtain Past Drug Use History: Unable to Obtain Medications and Allergies Home Medications Medication Instructions Recorded Confirmed Type Atorvastatin [Lipitor] 80 mg PO DAILY 12/08/18 12/08/18 History Bimatoprost [Lumigan .01% Ophth 1 drop RIGHT EYE DAILY 12/08/18 12/08/18 History Soln] Budesonide/Formoterol Fumarate 1 puff INHALATION RT-BID 12/08/18 12/08/18 History [Symbicort 80-4.5 Mcg Inhaler] Cholecalciferol [Vitamin D3 (25 1,000 unit PO DAILY 12/08/18 12/08/18 History Mcg = 1000 Iu)] Clopidogrel [Plavix] 75 mg PO DAILY 12/08/18 12/08/18 History Diltiazem Cd [Cardizem Cd] 120 mg PO DAILY 12/08/18 12/08/18 History Dulaglutide [Trulicity] 1.5 mg SQ Q7D 12/08/18 12/08/18 History Ferrous Sulfate [Feosol] 325 mg PO DAILY 12/08/18 12/08/18 History Folic Acid 1 mg PO DAILY 12/08/18 12/08/18 History INSULIN LISPRO (humaLOG) [humaLOG] 24 units SQ TID-W/MEALS 12/08/18 12/08/18 History Insulin Detemir (Levemir) [Levemir] 48 unit SQ HS 12/08/18 12/08/18 History Insulin Detemir (Levemir) [Levemir] 60 unit SQ DAILY 12/08/18 12/08/18 History Isosorbide Mononitrate ER [Imdur] 30 mg PO DAILY 12/08/18 12/08/18 History Lisinopril [Zestril] 5 mg PO DAILY 12/08/18 12/08/18 History Warfarin Sodium 1.25 - 2.5 mg PO DAILY 12/09/18 12/09/18 History Allergies Allergy/AdvReac Type Severity Reaction Status Date / Time phenytoin [From Dilantin] Allergy Rash/Hives Verified 12/08/18 12:50 sulfamethoxazole Allergy Rash/Hives Verified 12/08/18 12:50 [From Bactrim] trimethoprim [From Bactrim] Allergy Rash/Hives Verified 12/08/18 12:50 Physical Exam Vitals: Vital Signs Temp Pulse Resp BP Pulse Ox 12/09/18 17:30 79 21 152/74 94 L 12/09/18 17:00 72 14 155/68 95 12/09/18 16:30 71 15 166/66 94 L 12/09/18 16:00 97.7 F 75 18 174/76 93 L 12/09/18 15:31 76 14 12/09/18 15:30 67 17 127/65 99 12/09/18 15:18 73 14 97 12/09/18 15:00 60 20 145/66 93 L 12/09/18 14:30 63 20 161/65 95 12/09/18 14:00 63 21 166/61 93 L 12/09/18 13:30 66 16 167/110 91 L 12/09/18 13:00 67 11 L 95 12/09/18 12:30 69 6 L 154/65 92 L 12/09/18 12:00 97.8 F 57 L 24 131/64 94 L 12/09/18 11:35 63 12/09/18 11:30 59 L 6 L 137/72 100 12/09/18 11:22 51 L 12/09/18 11:00 57 L 14 179/72 97 12/09/18 10:30 67 20 157/67 97 12/09/18 10:00 64 16 166/70 96 12/09/18 09:30 64 17 183/70 96 12/09/18 09:00 72 14 144/70 95 12/09/18 08:30 58 L 16 152/70 94 L 12/09/18 08:00 97.7 F 55 L 20 163/70 95 12/09/18 07:53 95 12/09/18 07:30 54 L 8 L 163/68 96 12/09/18 07:00 68 20 165/75 95 12/09/18 06:30 56 L 13 161/69 95 12/09/18 06:00 49 L 10 L 147/80 96 12/09/18 05:30 49 L 11 L 145/64 93 L 12/09/18 05:00 49 L 11 L 141/64 92 L 12/09/18 04:30 50 L 18 143/61 93 L 12/09/18 04:00 97.6 F 51 L 13 162/75 96 12/09/18 03:30 67 24 128/64 97 12/09/18 03:28 19 12/09/18 03:00 48 L 19 140/63 92 L 12/09/18 02:30 52 L 18 135/60 92 L 12/09/18 02:00 50 L 17 144/63 93 L 12/09/18 01:30 53 L 15 128/60 96 12/09/18 01:00 50 L 18 133/61 90 L 12/09/18 00:30 52 L 16 144/62 96 12/09/18 00:00 97.6 F 52 L 17 141/57 96 05/22/19 23:30 52 L 17 146/64 95 12/08/18 23:00 50 L 18 137/59 96 12/08/18 22:55 51 L 18 137/59 94 L 12/08/18 22:30 55 L 18 153/61 92 L 12/08/18 22:00 54 L 19 156/68 95 12/08/18 21:30 55 L 29 H 152/66 95 12/08/18 21:00 54 L 18 144/97 94 L 12/08/18 20:30 60 17 169/73 95 12/08/18 20:00 97.7 F 69 12 164/70 97 12/08/18 19:30 68 11 L 158/69 97 12/08/18 19:00 56 L 16 141/61 95 12/08/18 18:30 50 L 16 123/60 93 L Intake and Output 12/09/18 12/09/18 12/09/18 06:59 14:59 22:59 Intake Total 391.394 80 60 Output Total 450 350 300 Balance -58.606 -270 -240 Intake: IV 360 80 60 Magnesium Sulfate-D5w Pmx 100 1 gm In Dextrose/Water 1 100ml.bag @ 100 mls/hr IVPB Q1H [facility] Rx#: [id number] Sodium Chloride 0.9% 1, 260 80 60 000 ml @ 100 mls/hr IV . Q10H [facility] Rx#:[id number] Intake, IV Titration 31.394 Amount Insulin Regular 100 unit 31.394 In Sodium Chloride 0.9% 100 ml @ Per Protocol IV .Q0M [facility] Rx#:[id number] Output: Urine 450 350 300 Other: Voiding Method Bedpan Bedpan # Voids 0 1 Weight 94 kg 94 kg Gen. appearance is calm and comfortable likely distress she is well-nourished and she is not having any respiratory distress at this point in time. Head exam was generally normal. There was no scleral icterus or corneal arcus. Mucous membranes were moist. Neck was supple and without jugular venous distension, thyromegaly, or carotid bruits. Carotids were easily palpable bilaterally. There was no adenopathy. Lungs sounds are diminished bilaterally and there is prolongation of the ex piratory phase of breathing and scattered expiratory wheezes heard throughout the lung neumann. Cardiac exam revealed the PMI to be normally situated and sized. The rhythm was regular and no extrasystoles were noted during several minutes of auscultation. The first and second heart sounds were normal and physiologic splitting of the second heart sound was noted. There were no murmurs, rubs, clicks, or gallops. Abdominal exam revealed normal bowel sounds. The abdomen was soft, non-tender, and without masses, organomegaly, or appreciable enlargement of the abdominal aorta Examination of the extremities revealed easily palpable radial, femoral and pedal pulses. There was no cyanosis, clubbing or edema. Examination of the skin revealed no evidence of significant rashes, suspicious appearing nevi or other concerning lesions. Neurologically she is awake and alert and there is no focal neurological deficits. Results - Laboratory Findings CBC and BMP: 12/09/18 05:12/09/18 05:31 PT/INR, D-dimer PT 14.9 sec (9.0-12.0) H 12/09/18 05:31 INR 1.5 (<1.2) H 12/09/18 05:31 Abnormal lab findings: Abnormal Labs 12/08/18 12/08/18 12/08/18 13:08 13:08 13:10 RBC Hgb Hct Neutrophils # Lymphocytes # PT INR APTT Chloride Carbon Dioxide 17 L BUN 46 H Creatinine 1.45 H Glucose 457 H POC Glucose (mg/dL) 441 H Hemoglobin A1c Magnesium Total Creatine Kinase 156 H CK-MB (CK-2) 2.7 H Troponin I Triglycerides 313 H Urine Glucose (UA) Ur Leukocyte Esterase Urine WBC Urine Mucus 12/08/18 12/08/18 12/08/18 13:54 14:23 15:36 RBC 3.46 L Hgb 10.3 L Hct 32.0 L Neutrophils # Lymphocytes # 0.5 L PT 21.9 H INR 2.2 H APTT 61.6 H Chloride Carbon Dioxide BUN Creatinine Glucose POC Glucose (mg/dL) 422 H Hemoglobin A1c Magnesium Total Creatine Kinase CK-MB (CK-2) Troponin I Triglycerides Urine Glucose (UA) Ur Leukocyte Esterase Urine WBC Urine Mucus 12/08/18 12/08/18 12/08/18 17:29 18:31 18:31 RBC Hgb Hct Neutrophils # Lymphocytes # PT INR APTT Chloride Carbon Dioxide BUN Creatinine Glucose POC Glucose (mg/dL) 376 H Hemoglobin A1c Magnesium 1.2 L Total Creatine Kinase CK-MB (CK-2) Troponin I 30.800 H* Triglycerides Urine Glucose (UA) Ur Leukocyte Esterase Urine WBC Urine Mucus 12/08/18 12/08/18 12/08/18 18:47 19:46 19:56 RBC Hgb Hct Neutrophils # Lymphocytes # PT INR APTT Chloride Carbon Dioxide BUN Creatinine Glucose POC Glucose (mg/dL) 368 H 359 H Hemoglobin A1c Magnesium Total Creatine Kinase CK-MB (CK-2) Troponin I Triglycerides Urine Glucose (UA) 4+ H Ur Leukocyte Esterase Trace H Urine WBC 7 H Urine Mucus Rare H 12/08/18 12/08/18 12/08/18 20:54 22:32 23:48 RBC Hgb Hct Neutrophils # Lymphocytes # PT INR APTT Chloride Carbon Dioxide BUN Creatinine Glucose POC Glucose (mg/dL) 368 H 325 H 295 H Hemoglobin A1c Magnesium Total Creatine Kinase CK-MB (CK-2) Troponin I Triglycerides Urine Glucose (UA) Ur Leukocyte Esterase Urine WBC Urine Mucus 12/09/18 12/09/18 12/09/18 01:16 01:16 01:20 RBC Hgb Hct Neutrophils # Lymphocytes # PT INR APTT Chloride Carbon Dioxide BUN Creatinine Glucose POC Glucose (mg/dL) 212 H Hemoglobin A1c 8.6 H Magnesium Total Creatine Kinase CK-MB (CK-2) Troponin I 39.200 H* Triglycerides Urine Glucose (UA) Ur Leukocyte Esterase Urine WBC Urine Mucus 12/09/18 12/09/18 12/09/18 02:04 03:16 04:34 RBC Hgb Hct Neutrophils # Lymphocytes # PT INR APTT Chloride Carbon Dioxide BUN Creatinine Glucose POC Glucose (mg/dL) 183 H 142 H 139 H Hemoglobin A1c Magnesium Total Creatine Kinase CK-MB (CK-2) Troponin I Triglycerides Urine Glucose (UA) Ur Leukocyte Esterase Urine WBC Urine Mucus 12/09/18 12/09/18 12/09/18 05:31 05:31 05:31 RBC Hgb Hct Neutrophils # 8.5 H Lymphocytes # 0.7 L PT 14.9 H INR 1.5 H APTT Chloride 109 H Carbon Dioxide 21 L BUN 33 H Creatinine Glucose 129 H POC Glucose (mg/dL) Hemoglobin A1c Magnesium Total Creatine Kinase CK-MB (CK-2) Troponin I Triglycerides 256 H Urine Glucose (UA) Ur Leukocyte Esterase Urine WBC Urine Mucus 12/09/18 12/09/18 05:53 07:40 RBC Hgb Hct Neutrophils # Lymphocytes # PT INR APTT Chloride Carbon Dioxide BUN Creatinine Glucose POC Glucose (mg/dL) 130 H 161 H Hemoglobin A1c Magnesium Total Creatine Kinase CK-MB (CK-2) Troponin I Triglycerides Urine Glucose (UA) Ur Leukocyte Esterase Urine WBC Urine Mucus - Diagnostic Findings Chest x-ray: image reviewed Assessment and Plan Plan: [address] segment elevation inferior wall myocardial infarction in a patient with known history of coronary artery disease. The patient underwent urgent cardiac catheterization and stenting of the RCA and today she is postop day #1 2 sinus bradycardia secondary to a wall myocardial infarction, recovered and the cardiac rhythm is sinus 3 chest pain, recovered 4 acute exacerbation of COPD/asthma, maintained on Symbicort on outpatient basis, was being treated for an acute bronchitis on outpatient basis with her tube is not complete. She remains bronchus spastic and wheezy and the chest x- ray is free of any acute pulmonary infiltrates. 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 We'll put the patient a combination of Perforomist and Pulmicort neb last treatment twice a day. We'll put the patient IV Solu Medrol 40 mg every 12 hours. We'll monitor the blood sugar and treat any form of steroid use hyperglycemia. We'll put the patient empiric antibiotic coverage with Augmentin. We'll monitor progress over the next 24 hours. Chest x-ray was noted to to be within normal limits. In terms of her cardiac condition, she is on antiplatelet agents. We'll discuss the need to restart warfarin and will see her this with the seed buyer I did the patient has had recurrent DVTs and she is on left lung and to coagulation with warfarin. Her current INR is 1.5 pH is able telemetry stable. She is free of any chest pain. We'll provide diet. We'll keep in ICU for 24 hours. Echo showed a preserved LV function without any significant valvular abnormalities.
[2018-12-09 18:25] LABS: Glucose,Whole Blood 291 mg/dL (75-99)
[2018-12-09] MEDS: ACETAMINOPHEN TAB 325 MG TAB PO PRN ×2 (18:28→23:55)
[2018-12-09] MEDS: BUDESONIDE 1 MG/2 ML NEBU INHALATION SCH (19:53)
[2018-12-09] MEDS: FORMOTEROL FUMARATE 20 MCG/2 ML NEBU INHALATION SCH (19:53)
[2018-12-09 20:40] LABS: Glucose,Whole Blood 241 mg/dL (75-99)
[2018-12-09] MEDS: LISINOPRIL 10 MG TAB PO SCH (20:53)
[2018-12-09] MEDS: ATORVASTATIN 80 MG TAB PO SCH (20:53)
[2018-12-10 05:33] LABS: Basophils % (A) 0 %; Eosinophils % (A) 0 %; HCT 35.2 % (34.0-46.0); HGB 11.6 gm/dL (11.4-16.0); Lymphocytes # (A) 0.4 k/uL (1.0-4.8); Lymphocytes % (A) 5 %; MCV 90.8 fL (80.0-100.0); Mean Platelet Volume 7.1; Monocytes # (A) 0.3 k/uL (0-1.0); Monocytes % (A) 3 %; Neutrophils # (A) 7.9 k/uL (1.3-7.7); Neutrophils % (A) 91 %; Platelet Count 293 k/uL (150-450); RBC 3.87 m/uL (3.80-5.40); RDW 13.7 % (11.5-15.5); WBC 8.6 k/uL (3.8-10.6)
[2018-12-10 05:43] LABS: INR 1.4 (<1.2); Prothrombin Time 14.3 sec (9.0-12.0)
[2018-12-10 05:45] LABS: Calcium 9.5 mg/dL (8.4-10.2); Magnesium 1.4 mg/dL (1.6-2.3)
[2018-12-10] MEDS: MAGNESIUM SULFATE-D5W PMX 1 GM in DEXTROSE/WATER 1 100ML.BAG IVPB SCH ×3 (07:03→10:46)
--- NOTE | 2018-12-10 07:26 | P.PN ---
Subjective Progress Note Date: 12/10/18 Principal diagnosis: Acute coronary event This is a pleasant 73-year-old female patient with history of coronary artery disease who was admitted to the hospital with acute inferior ST patient myocardial infarction and underwent stenting of the right coronary artery. The echocardiogram revealed normal LV function without wall motion abnormalities. On follow-up with the patient today, December 102018, the patient seems to be asymptomatic from a cardiovascular standpoint of view. She continues to be in normal sinus mechanism. She is on dual antiplatelet therapy along with a statin. She is on lisinopril as well. The blood pressure is marginally high and possibly because of her respiratory status. We'll increase the dose of lisinopril if she continues to be hypertensive. Objective - Vital Signs Vital signs: Vital Signs Temp 97.6 F 12/10/18 04:00 Pulse 78 12/10/18 07:00 Resp 16 12/10/18 07:00 BP 154/61 12/10/18 07:00 Pulse Ox 94 L 12/10/18 07:00 Intake & Output 12/09/18 12/10/18 12/10/18 18:59 06:59 18:59 Intake Total 160 230 10 Output Total 1025 650 0 Balance -865 -420 10 Weight 94 kg 96.7 kg Intake: IV 160 230 10 KVO 110 10 Sodium Chloride 0.9% 1, 160 120 000 ml @ 100 mls/hr IV . Q10H [facility] Rx#:[id number] Output: Urine 1025 650 0 Other: Voiding Method Bedpan Bedpan # Voids 1 0 0 - Constitutional General appearance: Present: no acute distress - Respiratory Respiratory: bilateral: CTA - Cardiovascular Rhythm: regular Heart sounds: normal: S1, S2 - Labs CBC & Chem 7: 12/10/18 05:02 12/10/18 05:02 Labs: Abnormal Lab Results - Last 24 Hours (Table) 12/09/18 12/09/18 12/09/18 Range/Units 01:16 07:40 18:23 Neutrophils # (1.3-7.7) k/uL Lymphocytes # (1.0-4.8) k/uL PT (9.0-12.0) sec INR (<1.2) Carbon Dioxide (22-30) mmol/L BUN (7-17) mg/dL Glucose (74-99) mg/dL POC Glucose (mg/dL) 161 H 291 H (75-99) mg/dL Hemoglobin A1c 8.6 H (4.0-6.0) % Magnesium (1.6-2.3) mg/dL 12/09/18 12/10/18 12/10/18 Range/Units 20:40 05:02 05:02 Neutrophils # 7.9 H (1.3-7.7) k/uL Lymphocytes # 0.4 L (1.0-4.8) k/uL PT (9.0-12.0) sec INR (<1.2) Carbon Dioxide 21 L (22-30) mmol/L BUN 32 H (7-17) mg/dL Glucose 185 H (74-99) mg/dL POC Glucose (mg/dL) 241 H (75-99) mg/dL Hemoglobin A1c (4.0-6.0) % Magnesium 1.4 L (1.6-2.3) mg/dL 12/10/18 Range/Units 05:02 Neutrophils # (1.3-7.7) k/uL Lymphocytes # (1.0-4.8) k/uL PT 14.3 H (9.0-12.0) sec INR 1.4 H (<1.2) Carbon Dioxide (22-30) mmol/L BUN (7-17) mg/dL Glucose (74-99) mg/dL POC Glucose (mg/dL) (75-99) mg/dL Hemoglobin A1c (4.0-6.0) % Magnesium (1.6-2.3) mg/dL Assessment and Plan Assessment: Assessment #[address] elevation myocardial infarction #2 status post PCI of the RCA #3 hypertension #4 diabetes #6 dyslipidemia Plan #1 continue the current medical regimen #2 increase the dose of lisinopril if she continues to be hypertensive #3 patient can be transferred out of the ICU
[2018-12-10 07:29] LABS: Glucose,Whole Blood 252 mg/dL (75-99)
[2018-12-10] MEDS: INSULIN DETEMIR (LEVEMIR) 100 UNIT/ML SYR SQ SCH ×2 (07:36→21:10)
[2018-12-10] MEDS: INSULIN ASPART (NovoLOG) 100 UNIT/ML VIAL SQ SCH ×2 (07:36→08:09)
--- NOTE | 2018-12-10 08:43 | XR ---
EXAMINATION TYPE: XR chest 1V portable DATE OF EXAM: 12/10/2018 HISTORY: Shortness of breath. COMPARISON: 12/09/2018 TECHNIQUE: Single view of the chest is submitted. FINDINGS: Demonstrated are scattered senescent parenchymal change. There is no evidence for focal infiltrate. The heart is stable. Hilar and mediastinal structures are within normal limits. Degenerative changes are seen of the dorsal spine. IMPRESSION: 1. Chronic changes without evidence for acute pulmonary disease.
[2018-12-10] MEDS: FORMOTEROL FUMARATE 20 MCG/2 ML NEBU INHALATION SCH ×2 (08:51→18:58)
[2018-12-10] MEDS: IPRATROPIUM-ALBUTEROL 3 ML NEB INHALATION SCH ×4 (08:51→18:58)
[2018-12-10] MEDS: BUDESONIDE 1 MG/2 ML NEBU INHALATION SCH ×2 (08:51→18:59)
[2018-12-10] MEDS ORDERED: METOPROLOL TARTRATE 12.5 MG TAB PO SCH (09:00)
[2018-12-10] MEDS: AMOXIC-POT CLAV 875-125MG 1 EACH TAB PO SCH ×2 (09:27→21:10)
[2018-12-10] MEDS: LISINOPRIL 10 MG TAB PO SCH ×2 (09:28→21:09)
[2018-12-10] MEDS: FERROUS SULFATE 325 MG TAB PO SCH (09:28)
[2018-12-10] MEDS: methylPREDNISolone SOD SUCCI 40 MG/ML 1 ML VIAL IV SCH ×4 (09:28→23:18)
[2018-12-10] MEDS: ASPIRIN 81 MG PO SCH (09:28)
[2018-12-10] MEDS: CHOLECALCIFEROL 1,000 UNIT TAB PO SCH (09:28)
[2018-12-10] MEDS: TICAGRELOR 90 MG TAB PO SCH ×2 (09:28→21:09)
[2018-12-10] MEDS: FOLIC ACID 1 MG TAB PO SCH (09:28)
[2018-12-10] MEDS ORDERED: INSULIN REGULAR BOLUS (FROM DRIP BAG) IV PRN (09:52)
[2018-12-10] MEDS ORDERED: FUROSEMIDE 10 MG/ML 4 ML VIAL IV STA (09:53)
[2018-12-10] MEDS: INSULIN REGULAR 100 UNIT in SODIUM CHLORIDE 0.9% 100 ML IV SCH ×2 (10:40→23:06)
[2018-12-10 10:56] LABS: Glucose,Whole Blood 246 mg/dL (75-99)
[2018-12-10 11:40] LABS: Glucose,Whole Blood 228 mg/dL (75-99)
[2018-12-10 12:13] LABS: Glucose,Whole Blood 191 mg/dL (75-99)
[2018-12-10 13:08] LABS: Glucose,Whole Blood 211 mg/dL (75-99)
[2018-12-10 14:10] LABS: Glucose,Whole Blood 258 mg/dL (75-99)
--- NOTE | 2018-12-10 14:12 | P.PN ---
Subjective Progress Note Date: 12/10/18 This is a 73-year-old female patient, who was having symptoms of bronchitis on outpatient basis. The patient was having increased cough congestion chest that isn't wheezing and for that reason she was seen by primary care physician she was given a course of antibiotics and steroids. She typically treatment for approximately a week and following that her condition got worse and she started having pressure-like sensation across her chest and nausea and increased shortness of breath. At that point, EMS was called to the scene and the patient was found to have ST segment elevation in inferior leads in addition to sinus bradycardia. She was given a dose of atropine without any benefit. She was im mediately transferred to our hospital which was taken to the Manager Category and the patient was found to have acute STEMI involving the inferior wall and the patient was given cardiac catheterization and stenting of the RCA. Noted the patient is known to have coronary artery disease. She has received most of the cardiac care through [facility] and she has undergone previous coronary intervention stenting in the past. Please refer to the results of the cardiac catheterization that was done which showed a occluded the right RCA that was stented. In addition there was calcified coronaries and mild disease involving the LAD and the circumflex. Currently she is in intensive care unit. Echocardiogram was done this morning and showed a preserved LV function with an ejection fraction of 55-60%. Mild concentric LVH. The intraventricular septum is intact. No significant valvular abnormalities. The patient's troponin peaked at 39.2. Currently she is on aspirin. She is on the Brillinta. 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 In fact her INR admission was therapeutic and earlier this morning the INR dropped down to 1.5. Anticoagulation was not resumed yet or the time being. No major swelling in lower extremities. No calf pain or tenderness. She is known to have hypertension and hyperlipidemia. She is also diabetic. The patient is fairly of any chest pain this morning. She is still congested bronchospastic and wheezy. The chest x-ray was done this morning it showed no acute process. There is improvement in aeration compared to the previous x-ray from yesterday. No focal airspace disease. No fever. No chills. No hemoptysis. She is a nonsmoker. On today's evaluation of 12/10/2018, the patient is feeling slightly better compared to yesterday. Nevertheless her asthma still active and she is having symptoms of bronchitis and bronchospasm wheezing and chest congestion. She has no angina. She is hemodynamically stable. I have the patient IV Solu Medrol 40 mg every 12 hours. The blood sugar was slightly elevated. I'm trying to put this patient on insulin drip I'm going to intensify the steroid treatment. No leukocytosis. Hemodynamically stable. No fever or chills. She had a chest x- ray this morning and showed chronic changes without evidence of any acute pulmonary disease. There is some scattered senescent parenchymal changes/disease. Objective - Vital Signs Vital signs: Vital Signs Temp 97.7 F 12/10/18 12:00 Pulse 89 12/10/18 13:16 Resp 23 12/10/18 13:00 BP 114/54 12/10/18 13:00 Pulse Ox 98 12/10/18 13:00 Intake & Output 12/09/18 12/10/18 12/10/18 18:59 06:59 18:59 Intake Total 755 647 3426.083 Output Total 5186 437 6426 Balance -865 -420 -1170.917 Weight 94 kg 96.7 kg Intake: IV 160 230 340 KVO 110 40 Magnesium Sulfate-D5w Pmx 300 1 gm In Dextrose/Water 1 100ml.bag @ 100 mls/hr IVPB Q1H [facility] Rx#: [id number] Sodium Chloride 0.9% 1, 160 120 000 ml @ 100 mls/hr IV . Q10H [facility] Rx#:[id number] Intake, IV Titration 19.083 Amount Insulin Regular 100 unit 19.083 In Sodium Chloride 0.9% 100 ml @ Per Protocol IV .Q0M [facility] Rx#:[id number] Oral 720 Output: Urine 2694 430 5867 Other: Voiding Method Bedpan Bedpan Bedpan # Voids 1 0 0 - Exam Gen. appearance is calm and comfortable likely distress she is well-nourished and she is not having any respiratory distress at this point in time. Head exam was generally normal. There was no scleral icterus or corneal arcus. Mucous membranes were moist. Neck was supple and without jugular venous distension, thyromegaly, or carotid bruits. Carotids were easily palpable bilaterally. There was no adenopathy. Lungs sounds are diminished bilaterally and there is prolongation of the expiratory phase of breathing and scattered expiratory wheezes heard throughout the lung neumann. Cardiac exam revealed the PMI to be normally situated and sized. The rhythm was regular and no extrasystoles were noted during several minutes of auscultation. The first and second heart sounds were normal and physiologic splitting of the second heart sound was noted. There were no murmurs, rubs, clicks, or gallops. Abdominal exam revealed normal bowel sounds. The abdomen was soft, non-tender, and without masses, organomegaly, or appreciable enlargement of the abdominal aorta Examination of the extremities revealed easily palpable radial, femoral and pedal pulses. There was no cyanosis, clubbing or edema. Examination of the skin revealed no evidence of significant rashes, suspicious appearing nevi or other concerning lesions. Neurologically she is awake and alert and there is no focal neurological deficits. - Labs CBC & Chem 7: 12/10/18 05:12/10/18 05:02 Labs: Abnormal Lab Results - Last 24 Hours (Table) 12/09/18 12/09/18 12/10/18 Range/Units 18:23 20:40 05:02 Neutrophils # 7.9 H (1.3-7.7) k/uL Lymphocytes # 0.4 L (1.0-4.8) k/uL PT (9.0-12.0) sec INR (<1.2) Carbon Dioxide (22-30) mmol/L BUN (7-17) mg/dL Glucose (74-99) mg/dL POC Glucose (mg/dL) 291 H 241 H (75-99) mg/dL Magnesium (1.6-2.3) mg/dL 12/10/18 12/10/18 12/10/18 Range/Units 05:02 05:02 07:27 Neutrophils # (1.3-7.7) k/uL Lymphocytes # (1.0-4.8) k/uL PT 14.3 H (9.0-12.0) sec INR 1.4 H (<1.2) Carbon Dioxide 21 L (22-30) mmol/L BUN 32 H (7-17) mg/dL Glucose 185 H (74-99) mg/dL POC Glucose (mg/dL) 252 H (75-99) mg/dL Magnesium 1.4 L (1.6-2.3) mg/dL 12/10/18 12/10/18 12/10/18 Range/Units 10:44 11:29 12:11 Neutrophils # (1.3-7.7) k/uL Lymphocytes # (1.0-4.8) k/uL PT (9.0-12.0) sec INR (<1.2) Carbon Dioxide (22-30) mmol/L BUN (7-17) mg/dL Glucose (74-99) mg/dL POC Glucose (mg/dL) 246 H 228 H 191 H (75-99) mg/dL Magnesium (1.6-2.3) mg/dL 12/10/18 Range/Units 12:56 Neutrophils # (1.3-7.7) k/uL Lymphocytes # (1.0-4.8) k/uL PT (9.0-12.0) sec INR (<1.2) Carbon Dioxide (22-30) mmol/L BUN (7-17) mg/dL Glucose (74-99) mg/dL POC Glucose (mg/dL) 211 H (75-99) mg/dL Magnesium (1.6-2.3) mg/dL Assessment and Plan Plan: [address] segment elevation inferior wall myocardial infarction in a patient with known history of coronary artery disease. The patient underwent urgent cardiac catheterization and stenting of the RCA and today she is postop day #2 2 sinus bradycardia secondary to a wall myocardial infarction, recovered and the cardiac rhythm is sinus 3 chest pain, recovered 4 acute exacerbation of COPD/asthma, maintained on Symbicort on outpatient basis, was being treated for an acute bronchitis on outpatient basis with the response being not complete. She remains bronchospastic and wheezy and the chest x-ray is free of any acute pulmonary infiltrates. 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 Continue the Levemir insulin. Add insulin drip for blood sugar control. Continue Augmentin. Continue DuoNeb. Continue bronchodilators. Management of cardiac medication per cardiology. Would like to restart Coumadin at a later stage regarding her recurrent DVTs once we get a clearance from cardiology. We'll continue to follow patient became the ICU as the patient is still having some ongoing bronchospasm wheezing related to her asthma exacerbation.
[2018-12-10 15:01] LABS: Glucose,Whole Blood 230 mg/dL (75-99)
[2018-12-10 16:11] LABS: Glucose,Whole Blood 186 mg/dL (75-99)
[2018-12-10 17:17] LABS: Glucose,Whole Blood 158 mg/dL (75-99)
[2018-12-10 17:53] LABS: Glucose,Whole Blood 237 mg/dL (75-99)
[2018-12-10 19:10] LABS: Glucose,Whole Blood 271 mg/dL (75-99)
[2018-12-10 20:08] LABS: Glucose,Whole Blood 215 mg/dL (75-99)
[2018-12-10 20:57] LABS: Glucose,Whole Blood 213 mg/dL (75-99)
[2018-12-10] MEDS: ACETAMINOPHEN TAB 325 MG TAB PO PRN (21:09)
[2018-12-10] MEDS: ATORVASTATIN 80 MG TAB PO SCH (21:09)
[2018-12-10 22:01] LABS: Glucose,Whole Blood 178 mg/dL (75-99)
[2018-12-10 22:58] LABS: Glucose,Whole Blood 193 mg/dL (75-99)
[2018-12-10 23:58] LABS: Glucose,Whole Blood 191 mg/dL (75-99)
[2018-12-11 01:14] LABS: Glucose,Whole Blood 143 mg/dL (75-99)
[2018-12-11 02:05] LABS: Glucose,Whole Blood 120 mg/dL (75-99)
[2018-12-11 02:58] LABS: Glucose,Whole Blood 140 mg/dL (75-99)
[2018-12-11 03:13] LABS: Glucose,Whole Blood 148 mg/dL (75-99)
[2018-12-11 03:56] LABS: Glucose,Whole Blood 136 mg/dL (75-99)
[2018-12-11 05:06] LABS: Glucose,Whole Blood 182 mg/dL (75-99)
[2018-12-11 05:28] LABS: Basophils % (A) 0 %; Eosinophils % (A) 0 %; HCT 39.7 % (34.0-46.0); HGB 12.8 gm/dL (11.4-16.0); Lymphocytes # (A) 0.4 k/uL (1.0-4.8); Lymphocytes % (A) 4 %; MCH 29.5 pg (25.0-35.0); MCHC 32.2 g/dL (31.0-37.0); MCV 91.8 fL (80.0-100.0); Mean Platelet Volume 7.7; Monocytes # (A) 0.7 k/uL (0-1.0); Monocytes % (A) 6 %; Neutrophils # (A) 10.1 k/uL (1.3-7.7); Neutrophils % (A) 89 %; Platelet Count 325 k/uL (150-450); RBC 4.32 m/uL (3.80-5.40); RDW 14.3 % (11.5-15.5); WBC 11.4 k/uL (3.8-10.6)
[2018-12-11 05:39] LABS: INR 1.5 (<1.2); Prothrombin Time 14.7 sec (9.0-12.0)
[2018-12-11 05:43] LABS: Calcium 9.8 mg/dL (8.4-10.2); Magnesium 1.9 mg/dL (1.6-2.3); Phosphorus 4.8 mg/dL (2.5-4.5); Potassium 4.8 mmol/L (3.5-5.1)
[2018-12-11 06:06] LABS: Glucose,Whole Blood 164 mg/dL (75-99)
[2018-12-11] MEDS: MAGNESIUM SULFATE-D5W PMX 1 GM in DEXTROSE/WATER 1 100ML.BAG IVPB SCH ×2 (06:18→10:25)
[2018-12-11] MEDS: methylPREDNISolone SOD SUCCI 40 MG/ML 1 ML VIAL IV SCH ×2 (06:18→12:21)
[2018-12-11 06:55] LABS: Glucose,Whole Blood 155 mg/dL (75-99)
--- NOTE | 2018-12-11 07:26 | P.PN ---
Subjective Progress Note Date: 12/11/18 Principal diagnosis: Acute coronary event This is a pleasant 73-year-old female patient with history of coronary artery disease who was admitted to the hospital with acute inferior ST patient myocardial infarction and underwent stenting of the right coronary artery. The echocardiogram revealed normal LV function without wall motion abnormalities. On follow-up with the patient today, December 112018, the patient is asymptomatic from a cardiovascular standpoint overview. She denies any chest pain or chest discomfort at this point. She continues to be on dual antiplatelet therapy as well as statin. Yesterday I did increase the dose of lisinopril because she was hypertensive and the blood pressure seems to be better controlled today. The patient can be transferred out of the intensive care unit. Objective - Vital Signs Vital signs: Vital Signs Temp 97.5 F L 12/11/18 04:00 Pulse 71 12/11/18 07:00 Resp 19 12/11/18 07:00 BP 144/66 12/11/18 07:00 Pulse Ox 93 L 12/11/18 07:00 Intake & Output 12/10/18 12/11/18 12/11/18 18:59 06:59 18:59 Intake Total 1530.750 200.983 16.2 Output Total 2950 400 0 Balance -1419.250 -199.017 16.2 Weight 94 kg Intake: IV 390 120 10 KVO 90 120 10 Magnesium Sulfate-D5w Pmx 300 1 gm In Dextrose/Water 1 100ml.bag @ 100 mls/hr IVPB Q1H [facility] Rx#: [id number] Intake, IV Titration 60.750 80.983 6.2 Amount Insulin Regular 100 unit 60.750 80.983 6.2 In Sodium Chloride 0.9% 100 ml @ Per Protocol IV .Q0M [facility] Rx#:[id number] Oral 1080 Output: Urine 2950 400 0 Other: Voiding Method Bedside Commode Bedpan # Voids 0 - Constitutional General appearance: Present: no acute distress - Respiratory Respiratory: bilateral: diminished - Cardiovascular Rhythm: regular Heart sounds: normal: S1, S2 - Labs CBC & Chem 7: 12/11/18 04:34 12/11/18 04:34 Labs: Abnormal Lab Results - Last 24 Hours (Table) 12/10/18 12/10/18 12/10/18 Range/Units 07:27 10:44 11:29 WBC (3.8-10.6) k/uL Neutrophils # (1.3-7.7) k/uL Lymphocytes # (1.0-4.8) k/uL PT (9.0-12.0) sec INR (<1.2) Carbon Dioxide (22-30) mmol/L BUN (7-17) mg/dL Glucose (74-99) mg/dL POC Glucose (mg/dL) 252 H 246 H 228 H (75-99) mg/dL Phosphorus (2.5-4.5) mg/dL 12/10/18 12/10/18 12/10/18 Range/Units 12:11 12:56 14:08 WBC (3.8-10.6) k/uL Neutrophils # (1.3-7.7) k/uL Lymphocytes # (1.0-4.8) k/uL PT (9.0-12.0) sec INR (<1.2) Carbon Dioxide (22-30) mmol/L BUN (7-17) mg/dL Glucose (74-99) mg/dL POC Glucose (mg/dL) 191 H 211 H 258 H (75-99) mg/dL Phosphorus (2.5-4.5) mg/dL 12/10/18 12/10/18 12/10/18 Range/Units 15:00 15:59 17:05 WBC (3.8-10.6) k/uL Neutrophils # (1.3-7.7) k/uL Lymphocytes # (1.0-4.8) k/uL PT (9.0-12.0) sec INR (<1.2) Carbon Dioxide (22-30) mmol/L BUN (7-17) mg/dL Glucose (74-99) mg/dL POC Glucose (mg/dL) 230 H 186 H 158 H (75-99) mg/dL Phosphorus (2.5-4.5) mg/dL 12/10/18 12/10/18 12/10/18 Range/Units 17:52 18:59 20:07 WBC (3.8-10.6) k/uL Neutrophils # (1.3-7.7) k/uL Lymphocytes # (1.0-4.8) k/uL PT (9.0-12.0) sec INR (<1.2) Carbon Dioxide (22-30) mmol/L BUN (7-17) mg/dL Glucose (74-99) mg/dL POC Glucose (mg/dL) 237 H 271 H 215 H (75-99) mg/dL Phosphorus (2.5-4.5) mg/dL 12/10/18 12/10/18 12/10/18 Range/Units 20:55 21:59 22:56 WBC (3.8-10.6) k/uL Neutrophils # (1.3-7.7) k/uL Lymphocytes # (1.0-4.8) k/uL PT (9.0-12.0) sec INR (<1.2) Carbon Dioxide (22-30) mmol/L BUN (7-17) mg/dL Glucose (74-99) mg/dL POC Glucose (mg/dL) 213 H 178 H 193 H (75-99) mg/dL Phosphorus (2.5-4.5) mg/dL 12/10/18 12/11/18 12/11/18 Range/Units 23:57 01:12 02:03 WBC (3.8-10.6) k/uL Neutrophils # (1.3-7.7) k/uL Lymphocytes # (1.0-4.8) k/uL PT (9.0-12.0) sec INR (<1.2) Carbon Dioxide (22-30) mmol/L BUN (7-17) mg/dL Glucose (74-99) mg/dL POC Glucose (mg/dL) 191 H 143 H 120 H (75-99) mg/dL Phosphorus (2.5-4.5) mg/dL 12/11/18 12/11/18 12/11/18 Range/Units 02:56 03:11 03:55 WBC (3.8-10.6) k/uL Neutrophils # (1.3-7.7) k/uL Lymphocytes # (1.0-4.8) k/uL PT (9.0-12.0) sec INR (<1.2) Carbon Dioxide (22-30) mmol/L BUN (7-17) mg/dL Glucose (74-99) mg/dL POC Glucose (mg/dL) 140 H 148 H 136 H (75-99) mg/dL Phosphorus (2.5-4.5) mg/dL 12/11/18 12/11/18 12/11/18 Range/Units 04:34 04:34 04:34 WBC 11.4 H (3.8-10.6) k/uL Neutrophils # 10.1 H (1.3-7.7) k/uL Lymphocytes # 0.4 L (1.0-4.8) k/uL PT 14.7 H (9.0-12.0) sec INR 1.5 H (<1.2) Carbon Dioxide 21 L (22-30) mmol/L BUN 46 H (7-17) mg/dL Glucose 147 H (74-99) mg/dL POC Glucose (mg/dL) (75-99) mg/dL Phosphorus 4.8 H (2.5-4.5) mg/dL 12/11/18 12/11/18 12/11/18 Range/Units 05:04 06:05 06:53 WBC (3.8-10.6) k/uL Neutrophils # (1.3-7.7) k/uL Lymphocytes # (1.0-4.8) k/uL PT (9.0-12.0) sec INR (<1.2) Carbon Dioxide (22-30) mmol/L BUN (7-17) mg/dL Glucose (74-99) mg/dL POC Glucose (mg/dL) 182 H 164 H 155 H (75-99) mg/dL Phosphorus (2.5-4.5) mg/dL Assessment and Plan Assessment: Assessment #[address] elevation myocardial infarction #2 status post PCI of the RCA #3 hypertension #4 diabetes #6 dyslipidemia Plan #1 continue the current medical regimen #2 the patient can be transferred out of the intensive care unit.
[2018-12-11 09:17] LABS: Glucose,Whole Blood 202 mg/dL (75-99)
[2018-12-11] MEDS: BUDESONIDE 1 MG/2 ML NEBU INHALATION SCH ×2 (10:01→20:14)
[2018-12-11] MEDS: FORMOTEROL FUMARATE 20 MCG/2 ML NEBU INHALATION SCH ×2 (10:01→20:14)
[2018-12-11] MEDS: IPRATROPIUM-ALBUTEROL 3 ML NEB INHALATION SCH ×4 (10:01→20:14)
[2018-12-11 10:15] LABS: Glucose,Whole Blood 164 mg/dL (75-99)
[2018-12-11] MEDS: AMOXIC-POT CLAV 875-125MG 1 EACH TAB PO SCH ×2 (10:26→21:05)
[2018-12-11] MEDS: TICAGRELOR 90 MG TAB PO SCH ×2 (10:26→21:06)
[2018-12-11] MEDS: CHOLECALCIFEROL 1,000 UNIT TAB PO SCH (10:26)
[2018-12-11] MEDS: LISINOPRIL 10 MG TAB PO SCH ×2 (10:26→21:04)
[2018-12-11] MEDS: FOLIC ACID 1 MG TAB PO SCH (10:26)
[2018-12-11] MEDS: ASPIRIN 81 MG PO SCH (10:26)
[2018-12-11] MEDS: FERROUS SULFATE 325 MG TAB PO SCH (10:26)
[2018-12-11] MEDS: INSULIN DETEMIR (LEVEMIR) 100 UNIT/ML SYR SQ SCH ×2 (10:30→21:06)
[2018-12-11 11:46] LABS: Glucose,Whole Blood 140 mg/dL (75-99)
[2018-12-11] MEDS: INSULIN ASPART (NovoLOG) 100 UNIT/ML VIAL SQ SCH ×4 (12:24→21:06)
--- NOTE | 2018-12-11 12:25 | P.PN ---
Progress Note - Text Patient Name: Clint Villavicencio Date of : 07/29/1932 Patient Status: Inpatient Attending Provider: Carlitos Alvarado Date: 12/10/18 17:02 Initialization Date: 12/10/18 17:02 Subjective - today the patient says that she's feeling weak. She is short of breath and is coughing - She does not complain of any chest pain racing heart - He does not complain of any abdominal pain, nausea and vomiting Objective - Vital Signs Vital signs: Vital Signs Temp 97.8 F 12/10/18 16:00 Pulse 75 12/10/18 16:11 Resp 19 12/10/18 16:00 BP 129/59 12/10/18 16:00 Pulse Ox 79 L 12/10/18 16:00 Intake & Output 12/09/18 12/10/18 12/10/18 18:59 06:59 18:59 Intake Total 1220 430 Output Total 200 550 400 Balance 1020 -120 -400 Weight 62.4 kg 65.9 kg Intake: IV 260 180 0.9 260 180 Oral 960 250 Output: Urine 200 550 400 Other: Voiding Method Bedside Commode Bedside Commode Urinal Urinal Urinal # Voids 1 1 1 # Bowel Movements 1 1 - Exam On exam, alert and oriented x3. HEENT: Conjunctivae normal. eyes normal. NECK: No JVD. No thyroid enlargement. No LNs CARDIOVASCULAR: S1-S2 positive RESPIRATION: is having wheezing bilaterally ABDOMEN: Soft, nontender . No guarding. no masses palpable. No ascites, No hepatosplenomegaly.Bowel sounds heard. LEGS: No edema. no swelling NERVOUS SYSTEM: Cranial N 2-12 grossly normal. Moves all 4 limbs. No focal deficits. No sensory deficit. No signs of cerebellar dysfucntion. Skin: no ulcer no rash - Labs CBC & Chem 7: 12/10/18 04:27 12/10/18 04:27 Labs: Abnormal Lab Results - Last 24 Hours (Table) 12/10/18 12/10/18 Range/Units 04:27 04:27 WBC 12.6 H (3.8-10.6) k/uL RBC 3.19 L (4.30-5.90) m/uL Hgb 9.1 L (13.0-17.5) gm/dL Hct 29.5 L (39.0-53.0) % MCHC 30.8 L (31.0-37.0) g/dL Plt Count 457 H (150-450) k/uL BUN 36 H (9-20) mg/dL Microbiology - Last 24 Hours (Table) 12/04/18 19:21 Blood Culture - Preliminary Blood No Growth after 120 hours 12/04/18 19:29 Blood Culture - Preliminary Blood No Growth after 120 hours Assessment and Plan Assessment: - acute STEMI status post cath and stenting of the right RCA - Acute COPD exacerbation - Acute respiratory failure secondary to above - Diabetes mellitus - anemia - history of recurrent DVTs patient supposedly and Coumadin - Hypertension - Hyperlipidemia plan - Patient in ICU. - Solu-Medrol increased today by pulmonology/critical care team - Continue breathing treatments - Need to restart Coumadin when cleared by cardiology - Continue rest of the medical care - We'll continue to monitor Time with Patient: Greater than 30
--- NOTE | 2018-12-11 12:30 | P.PN ---
Subjective Patient is sitting up in the chair She was getting a breathing treatment the time examination. Same that she's feeling better but still feeling weak Her insulin drip is off for now Objective - Vital Signs Vital signs: Vital Signs Temp 97 F L 12/11/18 08:00 Pulse 84 12/11/18 12:01 Resp 29 H 12/11/18 11:00 BP 169/82 12/11/18 11:00 Pulse Ox 96 12/11/18 11:00 Intake & Output 12/10/18 12/11/18 12/11/18 18:59 06:59 18:59 Intake Total 1530.750 200.983 203.600 Output Total 2950 400 0 Balance -1419.250 -199.017 203.600 Weight 94 kg Intake: IV 390 120 50 KVO 90 120 50 Magnesium Sulfate-D5w Pmx 300 1 gm In Dextrose/Water 1 100ml.bag @ 100 mls/hr IVPB Q1H [facility] Rx#: [id number] Intake, IV Titration 60.750 80.983 33.600 Amount Insulin Regular 100 unit 60.750 80.983 33.600 In Sodium Chloride 0.9% 100 ml @ Per Protocol IV .Q0M [facility] Rx#:[id number] Oral 1080 120 Output: Urine 2950 400 0 Other: Voiding Method Bedside Commode Bedpan # Voids 0 1 # Bowel Movements 1 - Exam On exam, alert and oriented x3. HEENT: Conjunctivae normal. eyes normal. NECK: No JVD. No thyroid enlargement. No LNs CARDIOVASCULAR: S1-S2 positive RESPIRATION: is having wheezing bilaterally better than yesterday ABDOMEN: Soft, nontender . No guarding. no masses palpable. No ascites, No hepatosplenomegaly.Bowel sounds heard. LEGS: No edema. no swelling NERVOUS SYSTEM: Cranial N 2-12 grossly normal. Moves all 4 limbs. No focal deficits. No sensory deficit. No signs of cerebellar dysfucntion. Skin: no ulcer no rash - Labs CBC & Chem 7: 12/11/18 04:34 12/11/18 04:34 Labs: Abnormal Lab Results - Last 24 Hours (Table) 12/10/18 12/10/18 12/10/18 Range/Units 12:56 14:08 15:00 WBC (3.8-10.6) k/uL Neutrophils # (1.3-7.7) k/uL Lymphocytes # (1.0-4.8) k/uL PT (9.0-12.0) sec INR (<1.2) Carbon Dioxide (22-30) mmol/L BUN (7-17) mg/dL Glucose (74-99) mg/dL POC Glucose (mg/dL) 211 H 258 H 230 H (75-99) mg/dL Phosphorus (2.5-4.5) mg/dL 12/10/18 12/10/18 12/10/18 Range/Units 15:59 17:05 17:52 WBC (3.8-10.6) k/uL Neutrophils # (1.3-7.7) k/uL Lymphocytes # (1.0-4.8) k/uL PT (9.0-12.0) sec INR (<1.2) Carbon Dioxide (22-30) mmol/L BUN (7-17) mg/dL Glucose (74-99) mg/dL POC Glucose (mg/dL) 186 H 158 H 237 H (75-99) mg/dL Phosphorus (2.5-4.5) mg/dL 12/10/18 12/10/18 12/10/18 Range/Units 18:59 20:07 20:55 WBC (3.8-10.6) k/uL Neutrophils # (1.3-7.7) k/uL Lymphocytes # (1.0-4.8) k/uL PT (9.0-12.0) sec INR (<1.2) Carbon Dioxide (22-30) mmol/L BUN (7-17) mg/dL Glucose (74-99) mg/dL POC Glucose (mg/dL) 271 H 215 H 213 H (75-99) mg/dL Phosphorus (2.5-4.5) mg/dL 12/10/18 12/10/18 12/10/18 Range/Units 21:59 22:56 23:57 WBC (3.8-10.6) k/uL Neutrophils # (1.3-7.7) k/uL Lymphocytes # (1.0-4.8) k/uL PT (9.0-12.0) sec INR (<1.2) Carbon Dioxide (22-30) mmol/L BUN (7-17) mg/dL Glucose (74-99) mg/dL POC Glucose (mg/dL) 178 H 193 H 191 H (75-99) mg/dL Phosphorus (2.5-4.5) mg/dL 12/11/18 12/11/18 12/11/18 Range/Units 01:12 02:03 02:56 WBC (3.8-10.6) k/uL Neutrophils # (1.3-7.7) k/uL Lymphocytes # (1.0-4.8) k/uL PT (9.0-12.0) sec INR (<1.2) Carbon Dioxide (22-30) mmol/L BUN (7-17) mg/dL Glucose (74-99) mg/dL POC Glucose (mg/dL) 143 H 120 H 140 H (75-99) mg/dL Phosphorus (2.5-4.5) mg/dL 12/11/18 12/11/18 12/11/18 Range/Units 03:11 03:55 04:34 WBC 11.4 H (3.8-10.6) k/uL Neutrophils # 10.1 H (1.3-7.7) k/uL Lymphocytes # 0.4 L (1.0-4.8) k/uL PT (9.0-12.0) sec INR (<1.2) Carbon Dioxide (22-30) mmol/L BUN (7-17) mg/dL Glucose (74-99) mg/dL POC Glucose (mg/dL) 148 H 136 H (75-99) mg/dL Phosphorus (2.5-4.5) mg/dL 12/11/18 12/11/18 12/11/18 Range/Units 04:34 04:34 05:04 WBC (3.8-10.6) k/uL Neutrophils # (1.3-7.7) k/uL Lymphocytes # (1.0-4.8) k/uL PT 14.7 H (9.0-12.0) sec INR 1.5 H (<1.2) Carbon Dioxide 21 L (22-30) mmol/L BUN 46 H (7-17) mg/dL Glucose 147 H (74-99) mg/dL POC Glucose (mg/dL) 182 H (75-99) mg/dL Phosphorus 4.8 H (2.5-4.5) mg/dL 12/11/18 12/11/18 12/11/18 Range/Units 06:05 06:53 09:14 WBC (3.8-10.6) k/uL Neutrophils # (1.3-7.7) k/uL Lymphocytes # (1.0-4.8) k/uL PT (9.0-12.0) sec INR (<1.2) Carbon Dioxide (22-30) mmol/L BUN (7-17) mg/dL Glucose (74-99) mg/dL POC Glucose (mg/dL) 164 H 155 H 202 H (75-99) mg/dL Phosphorus (2.5-4.5) mg/dL 12/11/18 12/11/18 Range/Units 10:14 11:45 WBC (3.8-10.6) k/uL Neutrophils # (1.3-7.7) k/uL Lymphocytes # (1.0-4.8) k/uL PT (9.0-12.0) sec INR (<1.2) Carbon Dioxide (22-30) mmol/L BUN (7-17) mg/dL Glucose (74-99) mg/dL POC Glucose (mg/dL) 164 H 140 H (75-99) mg/dL Phosphorus (2.5-4.5) mg/dL Assessment and Plan Assessment: - acute STEMI status post cath and stenting of the right RCA - Acute COPD exacerbation - Acute respiratory failure secondary to above - Diabetes mellitus - anemia - history of recurrent DVTs patient supposedly and Coumadin - Hypertension - Hyperlipidemia plan 12/10/2018 - Patient in ICU. - Solu-Medrol increased today by pulmonology/critical care team - Continue breathing treatments - Need to restart Coumadin when cleared by cardiology - Continue rest of the medical care - We'll continue to monitor 12/11/2018 - Patient will probably come out of the ICU today if okay with critical care - Continue Solu-Medrol, breathing treatments - Coumadin restarted. She is aspirin and brilanta - We'll continue rest of the medical care - Insulin drip on hold. Patient can be started on her home insulin regimen along with sliding scale if okay with critical care we'll continue to monitor -
--- NOTE | 2018-12-11 12:38 | XR ---
EXAMINATION TYPE: XR chest 1V portable DATE OF EXAM: 12/11/2018 COMPARISON: 12/10/2018 INDICATION: Short of breath TECHNIQUE: Single frontal view of the chest is obtained. FINDINGS: The heart size is normal. The pulmonary vasculature is normal. Increased lung markings in the right infrahilar region are slightly increased compared to the previou s study. Correlate for atelectasis or pneumonia. Follow-up is recommended IMPRESSION: 1. Small right lower lobe infiltrate may be present. Follow-up is recommended.
[2018-12-11] MEDS: predniSONE 20 MG TAB PO SCH (12:53)
--- NOTE | 2018-12-11 12:55 | P.PN ---
Subjective Progress Note Date: 12/11/18 This is a 73-year-old female patient, who was having symptoms of bronchitis on outpatient basis. The patient was having increased cough congestion chest that isn't wheezing and for that reason she was seen by primary care physician she was given a course of antibiotics and steroids. She typically treatment for approximately a week and following that her condition got worse and she started having pressure-like sensation across her chest and nausea and increased shortness of breath. At that point, EMS was called to the scene and the patient was found to have ST segment elevation in inferior leads in addition to sinus bradycardia. She was given a dose of atropine without any benefit. She was im mediately transferred to our hospital which was taken to the [facility] and the patient was found to have acute STEMI involving the inferior wall and the patient was given cardiac catheterization and stenting of the RCA. Noted the patient is known to have coronary artery disease. She has received most of the cardiac care through [facility] and she has undergone previous coronary intervention stenting in the past. Please refer to the results of the cardiac catheterization that was done which showed a occluded the right RCA that was stented. In addition there was calcified coronaries and mild disease involving the LAD and the circumflex. Currently she is in intensive care unit. Echocardiogram was done this morning and showed a preserved LV function with an ejection fraction of 55-60%. Mild concentric LVH. The intraventricular septum is intact. No significant valvular abnormalities. The patient's troponin peaked at 39.2. Currently she is on aspirin. She is on the Brillinta. 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 In fact her INR admission was therapeutic and earlier this morning the INR dropped down to 1.5. Anticoagulation was not resumed yet or the time being. No major swelling in lower extremities. No calf pain or tenderness. She is known to have hypertension and hyperlipidemia. She is also diabetic. The patient is fairly of any chest pain this morning. She is still congested bronchospastic and wheezy. The chest x-ray was done this morning it showed no acute process. There is improvement in aeration compared to the previous x-ray from yesterday. No focal airspace disease. No fever. No chills. No hemoptysis. She is a nonsmoker. On today's evaluation of 12/10/2018, the patient is feeling slightly better compared to yesterday. Nevertheless her asthma still active and she is having symptoms of bronchitis and bronchospasm wheezing and chest congestion. She has no angina. She is hemodynamically stable. I have the patient IV Solu Medrol 40 mg every 12 hours. The blood sugar was slightly elevated. I'm trying to put this patient on insulin drip I'm going to intensify the steroid treatment. No leukocytosis. Hemodynamically stable. No fever or chills. She had a chest x- ray this morning and showed chronic changes without evidence of any acute pulmonary disease. There is some scattered senescent parenchymal changes/disease. On 12/11/2018, the patient is doing well. Still bronchospastic and wheezy although less compared to yesterday and she is gradually improving. She is on insulin drip. She is also on Levemir insulin long-acting for blood sugar control. No chest pain. No nausea. No vomiting. No significant sputum production. No hemoptysis or pleurisy. The patient has no other significant complaints. No altered mentation. Cardiac rhythm is still sinus. Restarted on long-term articulation with warfarin at 2.5 mg dose the patient's INR is at 1.5. Otherwise, no other electrodes abnormalities. The white cell count is at 11.4. Chest x-ray is showing a small right-sided pleural effusion. Objective - Vital Signs Vital signs: Vital Signs Temp 97.5 F L 12/11/18 12:00 Pulse 84 12/11/18 12:01 Resp 24 12/11/18 12:00 BP 170/84 12/11/18 12:00 Pulse Ox 97 12/11/18 12:00 Intake & Output 12/10/18 12/11/18 12/11/18 18:59 06:59 18:59 Intake Total 1530.750 200.983 213.600 Output Total 2950 400 0 Balance -1419.250 -199.017 213.600 Weight 94 kg Intake: IV 390 120 60 KVO 90 120 60 Magnesium Sulfate-D5w Pmx 300 1 gm In Dextrose/Water 1 100ml.bag @ 100 mls/hr IVPB Q1H [facility] Rx#: [id number] Intake, IV Titration 60.750 80.983 33.600 Amount Insulin Regular 100 unit 60.750 80.983 33.600 In Sodium Chloride 0.9% 100 ml @ Per Protocol IV .Q0M [facility] Rx#:[id number] Oral 1080 120 Output: Urine 2950 400 0 Other: Voiding Method Bedside Commode Bedpan # Voids 0 1 # Bowel Movements 1 - Exam Gen. appearance is calm and comfortable likely distress she is well-nourished and she is not having any respiratory distress at this point in time. Head exam was generally normal. There was no scleral icterus or corneal arcus. Mucous membranes were moist. Neck was supple and without jugular venous distension, thyromegaly, or carotid bruits. Carotids were easily palpable bilaterally. There was no adenopathy. Lungs sounds are diminished bilaterally and there is prolongation of the expiratory phase of breathing and scattered expiratory wheezes heard throughout the lung neumann. Cardiac exam revealed the PMI to be normally situated and sized. The rhythm was regular and no extrasystoles were noted during several minutes of auscultation. The first and second heart sounds were normal and physiologic splitting of the second heart sound was noted. There were no murmurs, rubs, clicks, or gallops. Abdominal exam revealed normal bowel sounds. The abdomen was soft, non-tender, and without masses, organomegaly, or appreciable enlargement of the abdominal aorta Examination of the extremities revealed easily palpable radial, femoral and pedal pulses. There was no cyanosis, clubbing or edema. Examination of the skin revealed no evidence of significant rashes, suspicious appearing nevi or other concerning lesions. Neurologically she is awake and alert and there is no focal neurological deficits. - Labs CBC & Chem 7: 12/11/18 04:34 12/11/18 04:34 Labs: Abnormal Lab Results - Last 24 Hours (Table) 12/10/18 12/10/18 12/10/18 Range/Units 12:56 14:08 15:00 WBC (3.8-10.6) k/uL Neutrophils # (1.3-7.7) k/uL Lymphocytes # (1.0-4.8) k/uL PT (9.0-12.0) sec INR (<1.2) Carbon Dioxide (22-30) mmol/L BUN (7-17) mg/dL Glucose (74-99) mg/dL POC Glucose (mg/dL) 211 H 258 H 230 H (75-99) mg/dL Phosphorus (2.5-4.5) mg/dL 12/10/18 12/10/18 12/10/18 Range/Units 15:59 17:05 17:52 WBC (3.8-10.6) k/uL Neutrophils # (1.3-7.7) k/uL Lymphocytes # (1.0-4.8) k/uL PT (9.0-12.0) sec INR (<1.2) Carbon Dioxide (22-30) mmol/L BUN (7-17) mg/dL Glucose (74-99) mg/dL POC Glucose (mg/dL) 186 H 158 H 237 H (75-99) mg/dL Phosphorus (2.5-4.5) mg/dL 12/10/18 12/10/18 12/10/18 Range/Units 18:59 20:07 20:55 WBC (3.8-10.6) k/uL Neutrophils # (1.3-7.7) k/uL Lymphocytes # (1.0-4.8) k/uL PT (9.0-12.0) sec INR (<1.2) Carbon Dioxide (22-30) mmol/L BUN (7-17) mg/dL Glucose (74-99) mg/dL POC Glucose (mg/dL) 271 H 215 H 213 H (75-99) mg/dL Phosphorus (2.5-4.5) mg/dL 12/10/18 12/10/18 12/10/18 Range/Units 21:59 22:56 23:57 WBC (3.8-10.6) k/uL Neutrophils # (1.3-7.7) k/uL Lymphocytes # (1.0-4.8) k/uL PT (9.0-12.0) sec INR (<1.2) Carbon Dioxide (22-30) mmol/L BUN (7-17) mg/dL Glucose (74-99) mg/dL POC Glucose (mg/dL) 178 H 193 H 191 H (75-99) mg/dL Phosphorus (2.5-4.5) mg/dL 12/11/18 12/11/18 12/11/18 Range/Units 01:12 02:03 02:56 WBC (3.8-10.6) k/uL Neutrophils # (1.3-7.7) k/uL Lymphocytes # (1.0-4.8) k/uL PT (9.0-12.0) sec INR (<1.2) Carbon Dioxide (22-30) mmol/L BUN (7-17) mg/dL Glucose (74-99) mg/dL POC Glucose (mg/dL) 143 H 120 H 140 H (75-99) mg/dL Phosphorus (2.5-4.5) mg/dL 12/11/18 12/11/18 12/11/18 Range/Units 03:11 03:55 04:34 WBC 11.4 H (3.8-10.6) k/uL Neutrophils # 10.1 H (1.3-7.7) k/uL Lymphocytes # 0.4 L (1.0-4.8) k/uL PT (9.0-12.0) sec INR (<1.2) Carbon Dioxide (22-30) mmol/L BUN (7-17) mg/dL Glucose (74-99) mg/dL POC Glucose (mg/dL) 148 H 136 H (75-99) mg/dL Phosphorus (2.5-4.5) mg/dL 12/11/18 12/11/18 12/11/18 Range/Units 04:34 04:34 05:04 WBC (3.8-10.6) k/uL Neutrophils # (1.3-7.7) k/uL Lymphocytes # (1.0-4.8) k/uL PT 14.7 H (9.0-12.0) sec INR 1.5 H (<1.2) Carbon Dioxide 21 L (22-30) mmol/L BUN 46 H (7-17) mg/dL Glucose 147 H (74-99) mg/dL POC Glucose (mg/dL) 182 H (75-99) mg/dL Phosphorus 4.8 H (2.5-4.5) mg/dL 12/11/18 12/11/18 12/11/18 Range/Units 06:05 06:53 09:14 WBC (3.8-10.6) k/uL Neutrophils # (1.3-7.7) k/uL Lymphocytes # (1.0-4.8) k/uL PT (9.0-12.0) sec INR (<1.2) Carbon Dioxide (22-30) mmol/L BUN (7-17) mg/dL Glucose (74-99) mg/dL POC Glucose (mg/dL) 164 H 155 H 202 H (75-99) mg/dL Phosphorus (2.5-4.5) mg/dL 12/11/18 12/11/18 Range/Units 10:14 11:45 WBC (3.8-10.6) k/uL Neutrophils # (1.3-7.7) k/uL Lymphocytes # (1.0-4.8) k/uL PT (9.0-12.0) sec INR (<1.2) Carbon Dioxide (22-30) mmol/L BUN (7-17) mg/dL Glucose (74-99) mg/dL POC Glucose (mg/dL) 164 H 140 H (75-99) mg/dL Phosphorus (2.5-4.5) mg/dL Assessment and Plan Plan: [address] segment elevation inferior wall myocardial infarction in a patient with known history of coronary artery disease. The patient underwent urgent cardiac catheterization and stenting of the RCA and today she is postop day #3 2 sinus bradycardia secondary to a wall myocardial infarction, recovered and the cardiac rhythm is sinus 3 chest pain, recovered 4 acute exacerbation of COPD/asthma, maintained on Symbicort on outpatient basis, was being treated for an acute bronchitis on outpatient basis with the response being not complete. She remains bronchospastic and wheezy and the chest x-ray is free of any acute pulmonary infiltrates. 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 As such we'll be able to discontinue the insulin drip and utilized NovoLog with meals 24 units. Continue bronchodilators. Continue oral Augmentin. Chest x-ray was reviewed and shows no acute abnormalities. Place appreciated. We'll continue to follow and we'll move the patient to a telemetry unit at a later stage.
[2018-12-11 14:00] LABS: Glucose,Whole Blood 272 mg/dL (75-99)
[2018-12-11 17:00] LABS: Glucose,Whole Blood 278 mg/dL (75-99)
[2018-12-11] MEDS ORDERED: WARFARIN 2.5 MG TAB PO SCH (18:00)
[2018-12-11 20:44] LABS: Glucose,Whole Blood 337 mg/dL (75-99)
[2018-12-11] MEDS: ACETAMINOPHEN TAB 325 MG TAB PO PRN (21:04)
[2018-12-11] MEDS: ATORVASTATIN 80 MG TAB PO SCH (21:05)
[2018-12-12 04:49] LABS: Basophils % (A) 0 %; Eosinophils # (A) 0.1 k/uL (0-0.7); Eosinophils % (A) 0 %; HCT 40.4 % (34.0-46.0); HGB 12.8 gm/dL (11.4-16.0); Lymphocytes # (A) 0.6 k/uL (1.0-4.8); Lymphocytes % (A) 5 %; MCH 29.5 pg (25.0-35.0); MCHC 31.6 g/dL (31.0-37.0); MCV 93.6 fL (80.0-100.0); Mean Platelet Volume 7.5; Monocytes # (A) 1.5 k/uL (0-1.0); Monocytes % (A) 11 %; Neutrophils # (A) 11.2 k/uL (1.3-7.7); Neutrophils % (A) 83 %; Platelet Count 365 k/uL (150-450); RBC 4.32 m/uL (3.80-5.40); RDW 14.3 % (11.5-15.5); WBC 13.5 k/uL (3.8-10.6)
[2018-12-12 04:58] LABS: Calcium 9.6 mg/dL (8.4-10.2); Potassium 5.4 mmol/L (3.5-5.1)
[2018-12-12 05:12] LABS: INR 1.4 (<1.2); Prothrombin Time 14.3 sec (9.0-12.0)
[2018-12-12 07:00] LABS: Glucose,Whole Blood 151 mg/dL (75-99)
[2018-12-12] MEDS: INSULIN ASPART (NovoLOG) 100 UNIT/ML VIAL SQ SCH ×7 (07:02→21:33)
[2018-12-12] MEDS: BUDESONIDE 1 MG/2 ML NEBU INHALATION SCH ×2 (07:27→19:26)
[2018-12-12] MEDS: IPRATROPIUM-ALBUTEROL 3 ML NEB INHALATION SCH ×4 (07:27→19:26)
[2018-12-12] MEDS: FORMOTEROL FUMARATE 20 MCG/2 ML NEBU INHALATION SCH ×2 (07:27→19:26)
--- NOTE | 2018-12-12 08:13 | P.PN ---
Subjective Progress Note Date: 12/12/18 Principal diagnosis: Acute coronary event This is a pleasant 73-year-old female patient with history of coronary artery disease who was admitted to the hospital with acute inferior ST patient myocardial infarction and underwent stenting of the right coronary artery. The echocardiogram revealed normal LV function without wall motion abnormalities. On follow-up with the patient today, 12/12/2018, the patient overall is doing better clinically. She denies any chest pain or chest discomfort. The shortness of breath is better as well. She continues to be on dual antiplatelet therapy and the Coumadin was restarted yesterday as well. The INR today is subtherapeutic. I will give her 2.5 mg of Coumadin today and repeat INR tomorrow. The patient is in process to be transferred out of the ICU. Objective - Vital Signs Vital signs: Vital Signs Temp 97.0 F L 12/12/18 04:00 Pulse 97 12/12/18 07:50 Resp 17 12/12/18 04:00 BP 93/59 12/12/18 04:00 Pulse Ox 94 L 12/12/18 07:27 Intake & Output 12/11/18 12/12/18 12/12/18 18:59 06:59 18:59 Intake Total 273.600 20 Output Total 0 0 Balance 273.600 20 Weight 93.8 kg Intake: IV 120 20 KVO 120 20 Intake, IV Titration 33.600 Amount Insulin Regular 100 unit 33.600 In Sodium Chloride 0.9% 100 ml @ Per Protocol IV .Q0M [facility] Rx#:[id number] Oral 120 Output: Urine 0 0 Other: Voiding Method Bedside Commode Bedside Commode # Voids 1 1 # Bowel Movements 1 1 - Constitutional General appearance: Present: no acute distress - Respiratory Respiratory: bilateral: CTA - Cardiovascular Rhythm: regular Heart sounds: normal: S1, S2 - Labs CBC & Chem 7: 12/12/18 04:04 12/12/18 04:04 Labs: Abnormal Lab Results - Last 24 Hours (Table) 12/11/18 12/11/18 12/11/18 Range/Units 09:14 10:14 11:45 WBC (3.8-10.6) k/uL Neutrophils # (1.3-7.7) k/uL Lymphocytes # (1.0-4.8) k/uL Monocytes # (0-1.0) k/uL PT (9.0-12.0) sec INR (<1.2) Sodium (137-145) mmol/L Potassium (3.5-5.1) mmol/L Carbon Dioxide (22-30) mmol/L BUN (7-17) mg/dL Creatinine (0.52-1.04) mg/dL Glucose (74-99) mg/dL POC Glucose (mg/dL) 202 H 164 H 140 H (75-99) mg/dL 12/11/18 12/11/18 12/11/18 Range/Units 13:57 16:59 20:42 WBC (3.8-10.6) k/uL Neutrophils # (1.3-7.7) k/uL Lymphocytes # (1.0-4.8) k/uL Monocytes # (0-1.0) k/uL PT (9.0-12.0) sec INR (<1.2) Sodium (137-145) mmol/L Potassium (3.5-5.1) mmol/L Carbon Dioxide (22-30) mmol/L BUN (7-17) mg/dL Creatinine (0.52-1.04) mg/dL Glucose (74-99) mg/dL POC Glucose (mg/dL) 272 H 278 H 337 H (75-99) mg/dL 12/12/18 12/12/18 12/12/18 Range/Units 04:04 04:04 04:04 WBC 13.5 H (3.8-10.6) k/uL Neutrophils # 11.2 H (1.3-7.7) k/uL Lymphocytes # 0.6 L (1.0-4.8) k/uL Monocytes # 1.5 H (0-1.0) k/uL PT 14.3 H (9.0-12.0) sec INR 1.4 H (<1.2) Sodium 135 L (137-145) mmol/L Potassium 5.4 H (3.5-5.1) mmol/L Carbon Dioxide 21 L (22-30) mmol/L BUN 62 H (7-17) mg/dL Creatinine 1.17 H (0.52-1.04) mg/dL Glucose 201 H (74-99) mg/dL POC Glucose (mg/dL) (75-99) mg/dL 12/12/18 Range/Units 06:57 WBC (3.8-10.6) k/uL Neutrophils # (1.3-7.7) k/uL Lymphocytes # (1.0-4.8) k/uL Monocytes # (0-1.0) k/uL PT (9.0-12.0) sec INR (<1.2) Sodium (137-145) mmol/L Potassium (3.5-5.1) mmol/L Carbon Dioxide (22-30) mmol/L BUN (7-17) mg/dL Creatinine (0.52-1.04) mg/dL Glucose (74-99) mg/dL POC Glucose (mg/dL) 151 H (75-99) mg/dL Assessment and Plan Assessment: Assessment #[address] elevation myocardial infarction #2 status post PCI of the RCA #3 hypertension #4 diabetes #6 dyslipidemia Plan #1 continue the current medical regimen #2 continue the triple therapy #3 follow-up with the patient
[2018-12-12] MEDS: AMOXIC-POT CLAV 875-125MG 1 EACH TAB PO SCH ×2 (08:51→21:32)
[2018-12-12] MEDS: CHOLECALCIFEROL 1,000 UNIT TAB PO SCH (08:51)
[2018-12-12] MEDS: predniSONE 20 MG TAB PO SCH (08:51)
[2018-12-12] MEDS: INSULIN DETEMIR (LEVEMIR) 100 UNIT/ML SYR SQ SCH ×2 (08:52→21:33)
[2018-12-12] MEDS: TICAGRELOR 90 MG TAB PO SCH ×2 (08:52→21:32)
[2018-12-12] MEDS: ASPIRIN 81 MG PO SCH (08:52)
[2018-12-12] MEDS: LISINOPRIL 10 MG TAB PO SCH ×2 (08:52→21:32)
[2018-12-12] MEDS: FERROUS SULFATE 325 MG TAB PO SCH (08:52)
[2018-12-12] MEDS: FOLIC ACID 1 MG TAB PO SCH (08:52)
[2018-12-12] MEDS: DILTIAZEM CD 120 MG CAP.ER.24H PO SCH (08:52)
[2018-12-12 11:45] LABS: Glucose,Whole Blood 133 mg/dL (75-99)
--- NOTE | 2018-12-12 12:49 | P.PN ---
Subjective Progress Note Date: 12/12/18 This is a 73-year-old female patient, who was having symptoms of bronchitis on outpatient basis. The patient was having increased cough congestion chest that isn't wheezing and for that reason she was seen by primary care physician she was given a course of antibiotics and steroids. She typically treatment for approximately a week and following that her condition got worse and she started having pressure-like sensation across her chest and nausea and increased shortness of breath. At that point, EMS was called to the scene and the patient was found to have ST segment elevation in inferior leads in addition to sinus bradycardia. She was given a dose of atropine without any benefit. She was im mediately transferred to our hospital which was taken to the [facility] and the patient was found to have acute STEMI involving the inferior wall and the patient was given cardiac catheterization and stenting of the RCA. Noted the patient is known to have coronary artery disease. She has received most of the cardiac care through [facility] and she has undergone previous coronary intervention stenting in the past. Please refer to the results of the cardiac catheterization that was done which showed a occluded the right RCA that was stented. In addition there was calcified coronaries and mild disease involving the LAD and the circumflex. Currently she is in intensive care unit. Echocardiogram was done this morning and showed a preserved LV function with an ejection fraction of 55-60%. Mild concentric LVH. The intraventricular septum is intact. No significant valvular abnormalities. The patient's troponin peaked at 39.2. Currently she is on aspirin. She is on the Brillinta. 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 In fact her INR admission was therapeutic and earlier this morning the INR dropped down to 1.5. Anticoagulation was not resumed yet or the time being. No major swelling in lower extremities. No calf pain or tenderness. She is known to have hypertension and hyperlipidemia. She is also diabetic. The patient is fairly of any chest pain this morning. She is still congested bronchospastic and wheezy. The chest x-ray was done this morning it showed no acute process. There is improvement in aeration compared to the previous x-ray from yesterday. No focal airspace disease. No fever. No chills. No hemoptysis. She is a nonsmoker. On today's evaluation of 12/10/2018, the patient is feeling slightly better compared to yesterday. Nevertheless her asthma still active and she is having symptoms of bronchitis and bronchospasm wheezing and chest congestion. She has no angina. She is hemodynamically stable. I have the patient IV Solu Medrol 40 mg every 12 hours. The blood sugar was slightly elevated. I'm trying to put this patient on insulin drip I'm going to intensify the steroid treatment. No leukocytosis. Hemodynamically stable. No fever or chills. She had a chest x- ray this morning and showed chronic changes without evidence of any acute pulmonary disease. There is some scattered senescent parenchymal changes/disease. On 12/11/2018, the patient is doing well. Still bronchospastic and wheezy although less compared to yesterday and she is gradually improving. She is on insulin drip. She is also on Levemir insulin long-acting for blood sugar control. No chest pain. No nausea. No vomiting. No significant sputum production. No hemoptysis or pleurisy. The patient has no other significant complaints. No altered mentation. Cardiac rhythm is still sinus. Restarted on long-term articulation with warfarin at 2.5 mg dose the patient's INR is at 1.5. Otherwise, no other electrodes abnormalities. The white cell count is at 11.4. Chest x-ray is showing a small right-sided pleural effusion. on 12/12/2018 I'm seeing this patient for a follow-up. Her acute bronchitis and possibly an asthmatic reaction has subsided. She remains on oral Augmentin. She remains on Pulmicort Respules. She remains on DuoNeb nebulized treatments around the clock. She is on prednisone burst taper starting with 40 mg. Blood sugars under good control and the patient is being monitored on the telemetry unit. No angina. No palpitations.she is also 90 coagulation with warfarin. INR is at 1.4. Creatinine is at 1.1. No fever. No chills she is ambulating. Objective - Vital Signs Vital signs: Vital Signs Temp 97.7 F 12/12/18 09:00 Pulse 81 12/12/18 11:33 Resp 20 12/12/18 09:00 BP 145/76 12/12/18 09:00 Pulse Ox 94 L 12/12/18 09:00 Intake & Output 12/11/18 12/12/18 12/12/18 18:59 06:59 18:59 Intake Total 273.600 20 Output Total 0 0 Balance 273.600 20 Weight 93.8 kg Intake: IV 120 20 KVO 120 20 Intake, IV Titration 33.600 Amount Insulin Regular 100 unit 33.600 In Sodium Chloride 0.9% 100 ml @ Per Protocol IV .Q0M [facility] Rx#:[id number] Oral 120 Output: Urine 0 0 Other: Voiding Method Bedside Commode Bedside Commode # Voids 1 1 1 # Bowel Movements 1 1 1 - Exam Gen. appearance is calm and comfortable likely distress she is well-nourished and she is not having any respiratory distress at this point in time. Head exam was generally normal. There was no scleral icterus or corneal arcus. Mucous membranes were moist. Neck was supple and without jugular venous distension, thyromegaly, or carotid bruits. Carotids were easily palpable bilaterally. There was no adenopathy. Lungs sounds are diminished bilaterally and there is prolongation of the expiratory phase of breathing and scattered expiratory wheezes heard throughout the lung neumann. Cardiac exam revealed the PMI to be normally situated and sized. The rhythm was regular and no extrasystoles were noted during several minutes of auscultation. The first and second heart sounds were normal and physiologic splitting of the second heart sound was noted. There were no murmurs, rubs, clicks, or gallops. Abdominal exam revealed normal bowel sounds. The abdomen was soft, non-tender, and without masses, organomegaly, or appreciable enlargement of the abdominal aorta Examination of the extremities revealed easily palpable radial, femoral and pedal pulses. There was no cyanosis, clubbing or edema. Examination of the skin revealed no evidence of significant rashes, suspicious appearing nevi or other concerning lesions. Neurologically she is awake and alert and there is no focal neurological deficits. - Labs CBC & Chem 7: 12/12/18 04:04 12/12/18 04:04 Labs: Abnormal Lab Results - Last 24 Hours (Table) 12/11/18 12/11/18 12/11/18 Range/Units 13:57 16:59 20:42 WBC (3.8-10.6) k/uL Neutrophils # (1.3-7.7) k/uL Lymphocytes # (1.0-4.8) k/uL Monocytes # (0-1.0) k/uL PT (9.0-12.0) sec INR (<1.2) Sodium (137-145) mmol/L Potassium (3.5-5.1) mmol/L Carbon Dioxide (22-30) mmol/L BUN (7-17) mg/dL Creatinine (0.52-1.04) mg/dL Glucose (74-99) mg/dL POC Glucose (mg/dL) 272 H 278 H 337 H (75-99) mg/dL 12/12/18 12/12/18 12/12/18 Range/Units 04:04 04:04 04:04 WBC 13.5 H (3.8-10.6) k/uL Neutrophils # 11.2 H (1.3-7.7) k/uL Lymphocytes # 0.6 L (1.0-4.8) k/uL Monocytes # 1.5 H (0-1.0) k/uL PT 14.3 H (9.0-12.0) sec INR 1.4 H (<1.2) Sodium 135 L (137-145) mmol/L Potassium 5.4 H (3.5-5.1) mmol/L Carbon Dioxide 21 L (22-30) mmol/L BUN 62 H (7-17) mg/dL Creatinine 1.17 H (0.52-1.04) mg/dL Glucose 201 H (74-99) mg/dL POC Glucose (mg/dL) (75-99) mg/dL 12/12/18 12/12/18 Range/Units 06:57 11:43 WBC (3.8-10.6) k/uL Neutrophils # (1.3-7.7) k/uL Lymphocytes # (1.0-4.8) k/uL Monocytes # (0-1.0) k/uL PT (9.0-12.0) sec INR (<1.2) Sodium (137-145) mmol/L Potassium (3.5-5.1) mmol/L Carbon Dioxide (22-30) mmol/L BUN (7-17) mg/dL Creatinine (0.52-1.04) mg/dL Glucose (74-99) mg/dL POC Glucose (mg/dL) 151 H 133 H (75-99) mg/dL Assessment and Plan Plan: [address] segment elevation inferior wall myocardial infarction in a patient with known history of coronary artery disease. The patient underwent urgent cardiac catheterization and stenting of the RCA and today she is postop day #4 2 sinus bradycardia secondary to a wall myocardial infarction, recovered and the cardiac rhythm is sinus 3 chest pain, recovered 4 acute exacerbation of COPD/asthma, maintained on Symbicort on outpatient basis, was being treated for an acute bronchitis on outpatient basis with the response being not complete. 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 Continue the same nebulized medications. Continue to coagulation with warfarin. She is improving slowly. Suspect underlying asthmatic condition that needs to be further evaluated and worked up on outpatient basis. We'll continue to follow. Anticipate further improvement over the next 24 hours.
--- NOTE | 2018-12-12 14:03 | P.PN ---
Subjective Patient is sitting up in the chair She was getting a breathing treatment the time examination. Same that she's feeling better but still feeling weak Her insulin drip is off for now 12/12/2018 Patient was transferred to selective unit Breathing better. Still coughing a little bit No chest pain racing heart Objective - Vital Signs Vital signs: Vital Signs Temp 97.7 F 12/12/18 09:00 Pulse 81 12/12/18 11:33 Resp 20 12/12/18 09:00 BP 145/76 12/12/18 09:00 Pulse Ox 94 L 12/12/18 09:00 Intake & Output 12/11/18 12/12/18 12/12/18 18:59 06:59 18:59 Intake Total 273.600 20 240 Output Total 0 0 Balance 273.600 20 240 Weight 93.8 kg Intake: IV 120 20 KVO 120 20 Intake, IV Titration 33.600 Amount Insulin Regular 100 unit 33.600 In Sodium Chloride 0.9% 100 ml @ Per Protocol IV .Q0M [facility] Rx#:[id number] Oral 120 240 Output: Urine 0 0 Other: Voiding Method Bedside Commode Bedside Commode # Voids 1 1 2 # Bowel Movements 1 1 1 - Exam On exam, alert and oriented x3. HEENT: Conjunctivae normal. eyes normal. NECK: No JVD. No thyroid enlargement. No LNs CARDIOVASCULAR: S1-S2 positive RESPIRATION: is having wheezing bilaterally better than yesterday ABDOMEN: Soft, nontender . No guarding. no masses palpable. No ascites, No hepatosplenomegaly.Bowel sounds heard. LEGS: No edema. no swelling NERVOUS SYSTEM: Cranial N 2-12 grossly normal. Moves all 4 limbs. No focal deficits. No sensory deficit. No signs of cerebellar dysfucntion. Skin: no ulcer no rash - Labs CBC & Chem 7: 12/12/18 04:04 12/12/18 04:04 Labs: Abnormal Lab Results - Last 24 Hours (Table) 12/11/18 12/11/18 12/12/18 Range/Units 16:59 20:42 04:04 WBC 13.5 H (3.8-10.6) k/uL Neutrophils # 11.2 H (1.3-7.7) k/uL Lymphocytes # 0.6 L (1.0-4.8) k/uL Monocytes # 1.5 H (0-1.0) k/uL PT (9.0-12.0) sec INR (<1.2) Sodium (137-145) mmol/L Potassium (3.5-5.1) mmol/L Carbon Dioxide (22-30) mmol/L BUN (7-17) mg/dL Creatinine (0.52-1.04) mg/dL Glucose (74-99) mg/dL POC Glucose (mg/dL) 278 H 337 H (75-99) mg/dL 12/12/18 12/12/18 12/12/18 Range/Units 04:04 04:04 06:57 WBC (3.8-10.6) k/uL Neutrophils # (1.3-7.7) k/uL Lymphocytes # (1.0-4.8) k/uL Monocytes # (0-1.0) k/uL PT 14.3 H (9.0-12.0) sec INR 1.4 H (<1.2) Sodium 135 L (137-145) mmol/L Potassium 5.4 H (3.5-5.1) mmol/L Carbon Dioxide 21 L (22-30) mmol/L BUN 62 H (7-17) mg/dL Creatinine 1.17 H (0.52-1.04) mg/dL Glucose 201 H (74-99) mg/dL POC Glucose (mg/dL) 151 H (75-99) mg/dL 12/12/18 Range/Units 11:43 WBC (3.8-10.6) k/uL Neutrophils # (1.3-7.7) k/uL Lymphocytes # (1.0-4.8) k/uL Monocytes # (0-1.0) k/uL PT (9.0-12.0) sec INR (<1.2) Sodium (137-145) mmol/L Potassium (3.5-5.1) mmol/L Carbon Dioxide (22-30) mmol/L BUN (7-17) mg/dL Creatinine (0.52-1.04) mg/dL Glucose (74-99) mg/dL POC Glucose (mg/dL) 133 H (75-99) mg/dL Assessment and Plan Assessment: - acute STEMI status post cath and stenting of the right RCA - Acute COPD exacerbation - Acute respiratory failure secondary to above - Diabetes mellitus - anemia - history of recurrent DVTs patient supposedly and Coumadin - Hypertension - Hyperlipidemia plan 12/10/2018 - Patient in ICU. - Solu-Medrol increased today by pulmonology/critical care team - Continue breathing treatments - Need to restart Coumadin when cleared by cardiology - Continue rest of the medical care - We'll continue to monitor 12/11/2018 - Patient will probably come out of the ICU today if okay with critical care - Continue Solu-Medrol, breathing treatments - Coumadin restarted. She is aspirin and brilanta - We'll continue rest of the medical care - Insulin drip on hold. Patient can be started on her home insulin regimen along with sliding scale if okay with critical care we'll continue to monitor 12/12/2018 -Changed to oral antibiotics - Steroids being tapered Continuous medical care We'll follow up on the patient Time with Patient: Less than 30
[2018-12-12 16:45] LABS: Glucose,Whole Blood 210 mg/dL (75-99)
[2018-12-12] MEDS ORDERED: WARFARIN 2.5 MG TAB PO ONE (18:00)
[2018-12-12 21:21] LABS: Glucose,Whole Blood 187 mg/dL (75-99)
[2018-12-12] MEDS: ATORVASTATIN 80 MG TAB PO SCH (21:33)
[2018-12-13 06:12] LABS: Basophils % (A) 0 %; Eosinophils # (A) 0.1 k/uL (0-0.7); Eosinophils % (A) 1 %; HCT 39.2 % (34.0-46.0); HGB 12.8 gm/dL (11.4-16.0); Lymphocytes # (A) 1.1 k/uL (1.0-4.8); Lymphocytes % (A) 8 %; MCH 29.6 pg (25.0-35.0); MCHC 32.5 g/dL (31.0-37.0); MCV 91.1 fL (80.0-100.0); Mean Platelet Volume 7.5; Monocytes # (A) 1.1 k/uL (0-1.0); Monocytes % (A) 9 %; Neutrophils # (A) 10.2 k/uL (1.3-7.7); Neutrophils % (A) 80 %; Platelet Count 346 k/uL (150-450); RBC 4.31 m/uL (3.80-5.40); RDW 14.4 % (11.5-15.5); WBC 12.7 k/uL (3.8-10.6)
[2018-12-13 06:16] LABS: Prothrombin Time 19.6 sec (9.0-12.0)
[2018-12-13 06:23] LABS: Calcium 9.1 mg/dL (8.4-10.2); Potassium 4.7 mmol/L (3.5-5.1)
[2018-12-13 06:28] LABS: Glucose,Whole Blood 89 mg/dL (75-99)
[2018-12-13] MEDS: INSULIN ASPART (NovoLOG) 100 UNIT/ML VIAL SQ SCH ×7 (06:54→20:54)
[2018-12-13] MEDS: TICAGRELOR 90 MG TAB PO SCH ×2 (08:01→20:54)
[2018-12-13] MEDS: predniSONE 20 MG TAB PO SCH (08:01)
[2018-12-13] MEDS: LISINOPRIL 10 MG TAB PO SCH ×2 (08:01→20:54)
[2018-12-13] MEDS: CHOLECALCIFEROL 1,000 UNIT TAB PO SCH (08:02)
[2018-12-13] MEDS: AMOXIC-POT CLAV 875-125MG 1 EACH TAB PO SCH ×2 (08:02→20:54)
[2018-12-13] MEDS: DILTIAZEM CD 120 MG CAP.ER.24H PO SCH (08:02)
[2018-12-13] MEDS: FERROUS SULFATE 325 MG TAB PO SCH (08:02)
[2018-12-13] MEDS: FOLIC ACID 1 MG TAB PO SCH (08:02)
[2018-12-13] MEDS: ASPIRIN 81 MG PO SCH (08:02)
[2018-12-13] MEDS: BUDESONIDE 1 MG/2 ML NEBU INHALATION SCH ×2 (08:06→19:44)
[2018-12-13] MEDS: IPRATROPIUM-ALBUTEROL 3 ML NEB INHALATION SCH ×4 (08:06→19:46)
[2018-12-13] MEDS: FORMOTEROL FUMARATE 20 MCG/2 ML NEBU INHALATION SCH ×2 (08:06→19:44)
[2018-12-13] MEDS: INSULIN DETEMIR (LEVEMIR) 100 UNIT/ML SYR SQ SCH ×2 (10:20→20:54)
--- NOTE | 2018-12-13 10:52 | P.PN ---
Subjective Progress Note Date: 12/13/18 Principal diagnosis: Acute coronary event This is a pleasant 73-year-old female patient with history of coronary artery disease who was admitted to the hospital with acute inferior ST patient myocardial infarction and underwent stenting of the right coronary artery. The echocardiogram revealed normal LV function without wall motion abnormalities. On follow-up with the patient today, 12/13/2018, she still short of breath and she stated have bilateral expiratory wheezing on examination. No symptoms of chest pain or chest discomfort. She continues to be on dual antiplatelet therapy along with Coumadin for anticoagulation. The INR today is therapeutic. Objective - Vital Signs Vital signs: Vital Signs Temp 97.5 F L 12/13/18 04:00 Pulse 88 12/13/18 08:20 Resp 15 12/13/18 04:00 BP 96/61 12/13/18 04:00 Pulse Ox 92 L 12/13/18 04:00 Intake & Output 12/12/18 12/13/18 12/13/18 18:59 06:59 18:59 Intake Total 720 120 Balance 720 120 Weight 88.8 kg Intake: Oral 720 120 Other: Voiding Method Toilet # Voids 2 1 # Bowel Movements 1 - Constitutional General appearance: Present: no acute distress - Respiratory Respiratory: bilateral: wheezing - Cardiovascular Rhythm: regular Heart sounds: normal: S1, S2 - Labs CBC & Chem 7: 12/13/18 05:50 12/13/18 05:50 Labs: Abnormal Lab Results - Last 24 Hours (Table) 12/12/18 12/12/18 12/12/18 Range/Units 11:43 16:43 21:20 WBC (3.8-10.6) k/uL Neutrophils # (1.3-7.7) k/uL Monocytes # (0-1.0) k/uL PT (9.0-12.0) sec INR (<1.2) Sodium (137-145) mmol/L Chloride (98-107) mmol/L Carbon Dioxide (22-30) mmol/L BUN (7-17) mg/dL Creatinine (0.52-1.04) mg/dL POC Glucose (mg/dL) 133 H 210 H 187 H (75-99) mg/dL 12/13/18 12/13/18 12/13/18 Range/Units 05:50 05:50 05:50 WBC 12.7 H (3.8-10.6) k/uL Neutrophils # 10.2 H (1.3-7.7) k/uL Monocytes # 1.1 H (0-1.0) k/uL PT 19.6 H (9.0-12.0) sec INR 2.0 H (<1.2) Sodium 136 L (137-145) mmol/L Chloride 108 H (98-107) mmol/L Carbon Dioxide 19 L (22-30) mmol/L BUN 67 H (7-17) mg/dL Creatinine 1.12 H (0.52-1.04) mg/dL POC Glucose (mg/dL) (75-99) mg/dL Assessment and Plan Assessment: Assessment #[address] elevation myocardial infarction #2 status post PCI of the RCA #3 hypertension #4 diabetes #6 dyslipidemia Plan #1 continue the current medical regimen #2 continue the triple therapy #3 follow-up with the patient
--- NOTE | 2018-12-13 11:31 | CT ---
EXAMINATION TYPE: CT chest wo con DATE OF EXAM: 12/13/2018 COMPARISON: None HISTORY: STEMI, rule out abnormalities CT DLP: 314.5 mGycm, Automated exposure control for dose reduction was used. CONTRAST: None TECHNIQUE: Axial images were obtained at 5 mm thick sections. Reconstructed images ar e reviewed on the computer in the coronal plane. FINDINGS: Portion of the thyroid visualized is normal. No suspicious lung nodules or focal infiltrates are present. Small hiatal hernia may be present. No enlarged mediastinal or hilar adenopathy is evident. The ascending aorta diameter at the level o f the main pulmonary artery is 2.8 cm. The main pulmonary artery diameter at the bifurcation is 2.5 cm. Moderately extensive coronary artery calcification is present. Limited CT sections are obtained through the upper abdomen. Abdomen is essentially unremarkable. Osse ous structures appear normal. IMPRESSIONS: 1. Moderately extensive coronary artery calcification. 2. Noncontrast CT chest wo suspicious acute changes.
[2018-12-13 11:32] LABS: Glucose,Whole Blood 100 mg/dL (75-99)
--- NOTE | 2018-12-13 13:16 | P.PN ---
Subjective Progress Note Date: 12/13/18 This is a 73-year-old female patient, who was having symptoms of bronchitis on outpatient basis. The patient was having increased cough congestion chest that isn't wheezing and for that reason she was seen by primary care physician she was given a course of antibiotics and steroids. She typically treatment for approximately a week and following that her condition got worse and she started having pressure-like sensation across her chest and nausea and increased shortness of breath. At that point, EMS was called to the scene and the patient was found to have ST segment elevation in inferior leads in addition to sinus bradycardia. She was given a dose of atropine without any benefit. She was im mediately transferred to our hospital which was taken to the [facility] and the patient was found to have acute STEMI involving the inferior wall and the patient was given cardiac catheterization and stenting of the RCA. Noted the patient is known to have coronary artery disease. She has received most of the cardiac care through [facility] and she has undergone previous coronary intervention stenting in the past. Please refer to the results of the cardiac catheterization that was done which showed a occluded the right RCA that was stented. In addition there was calcified coronaries and mild disease involving the LAD and the circumflex. Currently she is in intensive care unit. Echocardiogram was done this morning and showed a preserved LV function with an ejection fraction of 55-60%. Mild concentric LVH. The intraventricular septum is intact. No significant valvular abnormalities. The patient's troponin peaked at 39.2. Currently she is on aspirin. She is on the Brillinta. 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 In fact her INR admission was therapeutic and earlier this morning the INR dropped down to 1.5. Anticoagulation was not resumed yet or the time being. No major swelling in lower extremities. No calf pain or tenderness. She is known to have hypertension and hyperlipidemia. She is also diabetic. The patient is fairly of any chest pain this morning. She is still congested bronchospastic and wheezy. The chest x-ray was done this morning it showed no acute process. There is improvement in aeration compared to the previous x-ray from yesterday. No focal airspace disease. No fever. No chills. No hemoptysis. She is a nonsmoker. On today's evaluation of 12/10/2018, the patient is feeling slightly better compared to yesterday. Nevertheless her asthma still active and she is having symptoms of bronchitis and bronchospasm wheezing and chest congestion. She has no angina. She is hemodynamically stable. I have the patient IV Solu Medrol 40 mg every 12 hours. The blood sugar was slightly elevated. I'm trying to put this patient on insulin drip I'm going to intensify the steroid treatment. No leukocytosis. Hemodynamically stable. No fever or chills. She had a chest x- ray this morning and showed chronic changes without evidence of any acute pulmonary disease. There is some scattered senescent parenchymal changes/disease. On 12/11/2018, the patient is doing well. Still bronchospastic and wheezy although less compared to yesterday and she is gradually improving. She is on insulin drip. She is also on Levemir insulin long-acting for blood sugar control. No chest pain. No nausea. No vomiting. No significant sputum production. No hemoptysis or pleurisy. The patient has no other significant complaints. No altered mentation. Cardiac rhythm is still sinus. Restarted on long-term articulation with warfarin at 2.5 mg dose the patient's INR is at 1.5. Otherwise, no other electrodes abnormalities. The white cell count is at 11.4. Chest x-ray is showing a small right-sided pleural effusion. on 12/12/2018 I'm seeing this patient for a follow-up. Her acute bronchitis and possibly an asthmatic reaction has subsided. She remains on oral Augmentin. She remains on Pulmicort Respules. She remains on DuoNeb nebulized treatments around the clock. She is on prednisone burst taper starting with 40 mg. Blood sugars under good control and the patient is being monitored on the telemetry unit. No angina. No palpitations.she is also 90 coagulation with warfarin. INR is at 1.4. Creatinine is at 1.1. No fever. No chills she is ambulating. On 12/13/2018 I'm seeing this patient for a follow-up. She is having limited improvement in her cough and congestion. This is despite bronchodilators and steroids and antibiotics. Based on that, a CAT scan of the chest was done that showed no acute pulmonary abnormalities. The coronaries were calcified. Nevertheless the lungs are essentially clear and there was no lesions or nodules are any mediastinal lymphadenopathy or pneumonia. The patient will be short. She is having no chest pain. Her INR is therapeutic at 2.0 on today's evaluation. Objective - Vital Signs Vital signs: Vital Signs Temp 97.5 F L 12/13/18 04:00 Pulse 80 12/13/18 12:00 Resp 20 12/13/18 12:00 BP 110/62 12/13/18 12:00 Pulse Ox 99 12/13/18 12:00 Intake & Output 12/12/18 12/13/18 12/13/18 18:59 06:59 18:59 Intake Total 720 120 Balance 720 120 Weight 88.8 kg Intake: Oral 720 120 Other: Voiding Method Toilet # Voids 2 1 1 # Bowel Movements 1 - Exam Gen. appearance is calm and comfortable likely distress she is well-nourished and she is not having any respiratory distress at this point in time. Head exam was generally normal. There was no scleral icterus or corneal arcus. Mucous membranes were moist. Neck was supple and without jugular venous distension, thyromegaly, or carotid bruits. Carotids were easily palpable bilaterally. There was no adenopathy. Lungs sounds are diminished bilaterally and there is prolongation of the expirat ory phase of breathing and scattered expiratory wheezes heard throughout the lung neumann. Cardiac exam revealed the PMI to be normally situated and sized. The rhythm was regular and no extrasystoles were noted during several minutes of auscultation. The first and second heart sounds were normal and physiologic splitting of the second heart sound was noted. There were no murmurs, rubs, clicks, or gallops. Abdominal exam revealed normal bowel sounds. The abdomen was soft, non-tender, and without masses, organomegaly, or appreciable enlargement of the abdominal aorta Examination of the extremities revealed easily palpable radial, femoral and pedal pulses. There was no cyanosis, clubbing or edema. Examination of the skin revealed no evidence of significant rashes, suspicious appearing nevi or other concerning lesions. Neurologically she is awake and alert and there is no focal neurological d eficits. - Labs CBC & Chem 7: 12/13/18 05:50 12/13/18 05:50 Labs: Abnormal Lab Results - Last 24 Hours (Table) 12/12/18 12/12/1819 Range/Units 16:43 21:20 05:50 WBC 12.7 H (3.8-10.6) k/uL Neutrophils # 10.2 H (1.3-7.7) k/uL Monocytes # 1.1 H (0-1.0) k/uL PT (9.0-12.0) sec INR (<1.2) Sodium (137-145) mmol/L Chloride (98-107) mmol/L Carbon Dioxide (22-30) mmol/L BUN (7-17) mg/dL Creatinine (0.52-1.04) mg/dL POC Glucose (mg/dL) 210 H 187 H (75-99) mg/dL 12/13/18 12/13/18 12/13/18 Range/Units 05:50 05:50 11:30 WBC (3.8-10.6) k/uL Neutrophils # (1.3-7.7) k/uL Monocytes # (0-1.0) k/uL PT 19.6 H (9.0-12.0) sec INR 2.0 H (<1.2) Sodium 136 L (137-145) mmol/L Chloride 108 H (98-107) mmol/L Carbon Dioxide 19 L (22-30) mmol/L BUN 67 H (7-17) mg/dL Creatinine 1.12 H (0.52-1.04) mg/dL POC Glucose (mg/dL) 100 H (75-99) mg/dL Assessment and Plan Plan: [address] segment elevation inferior wall myocardial infarction in a patient with known history of coronary artery disease. The patient underwent urgent cardiac catheterization and stenting of the RCA and today she is postop day #5 2 sinus bradycardia secondary to a wall myocardial infarction, recovered and the cardiac rhythm is sinus 3 chest pain, recovered 4 acute exacerbation of COPD/asthma, maintained on Symbicort on outpatient basis, was being treated for an acute bronchitis on outpatient basis with the response being not complete. She remains bronchospastic and wheezy and the chest x-ray is free of any acute pulmonary infiltrates. Recovery is slow at this point in time. Based on this, the CAT scan of the chest was done and the findings are essentially within normal limits. 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 Continue prednisone burst taper. Continue Augmentin. Blood sugars under good control. INR is at 2.0. Cardiac condition is stable. CAT scan of the chest shows no acute abnormalities. The patient was reassured. Possible discharge in a.m. She'll be due short for now. She may be asthmatic and outpatient follow-up will be needed regarding her pulmonary status.
[2018-12-13 16:42] LABS: Glucose,Whole Blood 208 mg/dL (75-99)
[2018-12-13] MEDS ORDERED: WARFARIN 2.5 MG TAB PO SCH (18:00)
--- NOTE | 2018-12-13 20:25 | P.PN ---
Subjective Patient is sitting up in the chair She was getting a breathing treatment the time examination. Same that she's feeling better but still feeling weak Her insulin drip is off for now 12/12/2018 Patient was transferred to selective unit Breathing better. Still coughing a little bit No chest pain racing heart 12/13/18 Pt says she was feeling better this morning, still coughing though no chest pain, no racing heart Objective - Vital Signs Vital signs: Vital Signs Temp 97.5 F L 12/13/18 16:00 Pulse 82 12/13/18 20:04 Resp 20 12/13/18 16:00 BP 125/56 12/13/18 16:00 Pulse Ox 95 12/13/18 19:46 Intake & Output 12/13/18 12/13/18 12/14/18 06:59 18:59 06:59 Intake Total 360 Balance 360 Weight 88.8 kg Intake: Oral 360 Other: Voiding Method Toilet # Voids 1 1 - Exam On exam, alert and oriented x3. HEENT: Conjunctivae normal. eyes normal. NECK: No JVD. No thyroid enlargement. No LNs CARDIOVASCULAR: S1-S2 positive RESPIRATION: is having wheezing bilaterally better than yesterday ABDOMEN: Soft, nontender . No guarding. no masses palpable. No ascites, No hepatosplenomegaly.Bowel sounds heard. LEGS: No edema. no swelling NERVOUS SYSTEM: Cranial N 2-12 grossly normal. Moves all 4 limbs. No focal deficits. No sensory deficit. No signs of cerebellar dysfucntion. Skin: no ulcer no rash - Labs CBC & Chem 7: 12/13/18 05:50 12/13/18 05:50 Labs: Abnormal Lab Results - Last 24 Hours (Table) 12/12/18 12/13/18 12/13/18 Range/Units 21:20 05:50 05:50 WBC 12.7 H (3.8-10.6) k/uL Neutrophils # 10.2 H (1.3-7.7) k/uL Monocytes # 1.1 H (0-1.0) k/uL PT (9.0-12.0) sec INR (<1.2) Sodium 136 L (137-145) mmol/L Chloride 108 H (98-107) mmol/L Carbon Dioxide 19 L (22-30) mmol/L BUN 67 H (7-17) mg/dL Creatinine 1.12 H (0.52-1.04) mg/dL POC Glucose (mg/dL) 187 H (75-99) mg/dL 12/13/18 12/13/18 12/13/18 Range/Units 05:50 11:30 16:37 WBC (3.8-10.6) k/uL Neutrophils # (1.3-7.7) k/uL Monocytes # (0-1.0) k/uL PT 19.6 H (9.0-12.0) sec INR 2.0 H (<1.2) Sodium (137-145) mmol/L Chloride (98-107) mmol/L Carbon Dioxide (22-30) mmol/L BUN (7-17) mg/dL Creatinine (0.52-1.04) mg/dL POC Glucose (mg/dL) 100 H 208 H (75-99) mg/dL Assessment and Plan Assessment: - acute STEMI status post cath and stenting of the right RCA - Acute COPD exacerbation - Acute respiratory failure secondary to above - Diabetes mellitus - anemia - history of recurrent DVTs patient supposedly and Coumadin - Hypertension - Hyperlipidemia plan 12/10/2018 - Patient in ICU. - Solu-Medrol increased today by pulmonology/critical care team - Continue breathing treatments - Need to restart Coumadin when cleared by cardiology - Continue rest of the medical care - We'll continue to monitor 12/11/2018 - Patient will probably come out of the ICU today if okay with critical care - Continue Solu-Medrol, breathing treatments - Coumadin restarted. She is aspirin and brilanta - We'll continue rest of the medical care - Insulin drip on hold. Patient can be started on her home insulin regimen a long with sliding scale if okay with critical care we'll continue to monitor 12/12/2018 -Changed to oral antibiotics - Steroids being tapered Continuous medical care We'll follow up on the patient 12/13/18 - CT ABD ordered as she continues to cough - Continue abx and steroids as per pulmo recs - Possible dc when cleared by pulmo in the next 24 to 48 hrs Time with Patient: Greater than 30
[2018-12-13 20:52] LABS: Glucose,Whole Blood 215 mg/dL (75-99)
[2018-12-13] MEDS: ATORVASTATIN 80 MG TAB PO SCH (20:54)
[2018-12-14 06:32] LABS: Glucose,Whole Blood 87 mg/dL (75-99)
[2018-12-14] MEDS: INSULIN ASPART (NovoLOG) 100 UNIT/ML VIAL SQ SCH ×4 (06:48→11:57)
[2018-12-14 07:19] LABS: Basophils % (A) 0 %; Eosinophils # (A) 0.1 k/uL (0-0.7); Eosinophils % (A) 1 %; HCT 39.6 % (34.0-46.0); HGB 12.7 gm/dL (11.4-16.0); Lymphocytes % (A) 8 %; MCH 29.4 pg (25.0-35.0); MCHC 32.1 g/dL (31.0-37.0); MCV 91.6 fL (80.0-100.0); Mean Platelet Volume 7.4; Monocytes # (A) 1.1 k/uL (0-1.0); Monocytes % (A) 8 %; Neutrophils # (A) 10.5 k/uL (1.3-7.7); Neutrophils % (A) 82 %; Platelet Count 331 k/uL (150-450); RBC 4.32 m/uL (3.80-5.40); RDW 14.5 % (11.5-15.5); WBC 12.9 k/uL (3.8-10.6)
[2018-12-14 07:22] LABS: Calcium 9.2 mg/dL (8.4-10.2); Potassium 5.1 mmol/L (3.5-5.1)
[2018-12-14 08:20] LABS: INR 2.6 (<1.2); Prothrombin Time 25.3 sec (9.0-12.0)
[2018-12-14] MEDS: IPRATROPIUM-ALBUTEROL 3 ML NEB INHALATION SCH ×3 (08:20→15:24)
[2018-12-14] MEDS: FORMOTEROL FUMARATE 20 MCG/2 ML NEBU INHALATION SCH (08:20)
[2018-12-14] MEDS: BUDESONIDE 1 MG/2 ML NEBU INHALATION SCH (08:20)
[2018-12-14 09:03] VITALS: RESP 16; TEMP 97.5
[2018-12-14] MEDS: CHOLECALCIFEROL 1,000 UNIT TAB PO SCH (09:12)
[2018-12-14] MEDS: DILTIAZEM CD 120 MG CAP.ER.24H PO SCH (09:12)
[2018-12-14] MEDS: FOLIC ACID 1 MG TAB PO SCH (09:12)
[2018-12-14] MEDS: FERROUS SULFATE 325 MG TAB PO SCH (09:12)
[2018-12-14] MEDS: predniSONE 20 MG TAB PO SCH (09:12)
[2018-12-14] MEDS: LISINOPRIL 10 MG TAB PO SCH (09:12)
[2018-12-14] MEDS: TICAGRELOR 90 MG TAB PO SCH (09:12)
[2018-12-14] MEDS: ASPIRIN 81 MG PO SCH (09:12)
[2018-12-14] MEDS: AMOXIC-POT CLAV 875-125MG 1 EACH TAB PO SCH (09:12)
[2018-12-14 09:20] LABS: Glucose,Whole Blood 98 mg/dL (75-99)
[2018-12-14] MEDS: INSULIN DETEMIR (LEVEMIR) 100 UNIT/ML SYR SQ SCH (09:20)
[2018-12-14] MEDS ORDERED: METOPROLOL SUCCINATE (ER) 25 MG TAB.ER.24H PO SCH (11:15)
[2018-12-14] MEDS ORDERED: CLOPIDOGREL 75 MG TAB PO SCH (11:15)
--- NOTE | 2018-12-14 11:34 | P.PN ---
Subjective Progress Note Date: 12/14/18 Principal diagnosis: acute ST elevated inferior wall NC, acute bronchitis and acute exacerbation of COPD/asthma This is a 73-year-old female patient, who was having symptoms of bronchitis on outpatient basis. The patient was having increased cough congestion chest that isn't wheezing and for that reason she was seen by primary care physician she was given a course of antibiotics and steroids. She typically treatment for approximately a week and following that her condition got worse and she started having pressure-like sensation across her chest and nausea and increased s hortness of breath. At that point, EMS was called to the scene and the patient was found to have ST segment elevation in inferior leads in addition to sinus bradycardia. She was given a dose of atropine without any benefit. She was immediately transferred to our hospital which was taken to the [facility] and the patient was found to have acute STEMI involving the inferior wall and the patient was given cardiac catheterization and stenting of the RCA. Noted the patient is known to have coronary artery disease. She has received most of the cardiac care through [facility] and she has undergone previous coronary intervention stenting in the past. Please refer to the results of the cardiac catheterization that was done which showed a occluded the right RCA that was stented. In addition there was calcified coronaries and mild disease involving the LAD and the circumflex. Currently she is in intensive care unit. Echocardiogram was done this morning and showed a preserved LV function with an ejection fraction of 55-60%. Mild concentric LVH. The intraventricular septum is intact. No significant valvular abnormalities. The patient's troponin peaked at 39.2. Currently she is on aspirin. She is on the Brillinta. 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 In fact her INR admission was therapeutic and earlier this morning the INR dropped down to 1.5. Anticoagulation was not resumed yet or the time being. No major swelling in lower extremities. No calf pain or tenderness. She is known to have hypertension and hyperlipidemia. She is also diabetic. The patient is fairly of any chest pain this morning. She is still congested bronchospastic and wheezy. The chest x-ray was done this morning it showed no acute process. There is improvement in aeration compared to the previous x-ray from yesterday. No focal airspace disease. No fever. No chills. No hemoptysis. She is a nonsmoker. On today's evaluation of 12/10/2018, the patient is feeling slightly better compared to yesterday. Nevertheless her asthma still active and she is having symptoms of bronchitis and bronchospasm wheezing and chest congestion. She has no angina. She is hemodynamically stable. I have the patient IV Solu Medrol 40 mg every 12 hours. The blood sugar was slightly elevated. I'm trying to put this patient on insulin drip I'm going to intensify the steroid treatment. No leukocytosis. Hemodynamically stable. No fever or chills. She had a chest x- ray this morning and showed chronic changes without evidence of any acute pulmonary disease. There is some scattered senescent parenchymal changes/disease. On 12/11/2018, the patient is doing well. Still bronchospastic and wheezy although less compared to yesterday and she is gradually improving. She is on insulin drip. She is also on Levemir insulin long-acting for blood sugar control. No chest pain. No nausea. No vomiting. No significant sputum production. No hemoptysis or pleurisy. The patient has no other significant complaints. No altered mentation. Cardiac rhythm is still sinus. Restarted on long-term articulation with warfarin at 2.5 mg dose the patient's INR is at 1.5. Otherwise, no other electrodes abnormalities. The white cell count is at 11.4. Chest x-ray is showing a small right-sided pleural effusion. on 12/12/2018 I'm seeing this patient for a follow-up. Her acute bronchitis and possibly an asthmatic reaction has subsided. She remains on oral Augmentin. She remains on Pulmicort Respules. She remains on DuoNeb nebulized treatments around the clock. She is on prednisone burst taper starting with 40 mg. Blood sugars under good control and the patient is being monitored on the telemetry unit. No angina. No palpitations.she is also 90 coagulation with warfarin. INR is at 1.4. Creatinine is at 1.1. No fever. No chills she is ambulating. On 12/13/2018 I'm seeing this patient for a follow-up. She is having limited improvement in her cough and congestion. This is despite bronchodilators and steroids and antibiotics. Based on that, a CAT scan of the chest was done that showed no acute pulmonary abnormalities. The coronaries were calcified. Nevertheless the lungs are essentially clear and there was no lesions or nodules are any mediastinal lymphadenopathy or pneumonia. The patient will be short. She is having no chest pain. Her INR is therapeutic at 2.0 on today's evaluation. On 12/06/2018 patient seen in follow-up on selective care unit, she is sitting up in the recliner, in no acute distress, she states her biggest complaint is just being tired. On sounds are positive for some scattered wheezing, and patient still has a congested cough, not bringing up much sputum, CT chest was completed yesterday and showed no acute pulmonary abnormalities. Room air pulse ox is 95%, patient is afebrile, hemodynamically stable, no complete of chest pain. No fever or chills, no acute events overnight. Objective - Vital Signs Vital signs: Vital Signs Temp 97.5 F L 12/14/18 08:00 Pulse 74 12/14/18 08:42 Resp 16 12/14/18 08:00 BP 141/65 12/14/18 08:00 Pulse Ox 95 12/14/18 08:20 Intake & Output 12/13/18 12/14/18 12/14/18 18:59 06:59 18:59 Intake Total 360 200 Balance 360 200 Weight 88.7 kg Intake: Oral 360 200 Other: Voiding Method Toilet # Voids 1 1 - Exam GENERAL EXAM: Alert, pleasant, 73-year-old white female, sitting up in the recliner, on room air with sats of 95% comfortable in no apparent distress. HEAD: Normocephalic/atraumatic. EYES: Normal reaction of pupils, equal size. Conjunctiva pink, sclera white. NOSE: Clear with pink turbinates. THROAT: No erythema or exudates. NECK: No masses, no JVD, no thyroid enlargement, no adenopathy. CHEST: No chest wall deformity. Symmetrical expansion. LUNGS: Equal air entry with diffuse wheezes CVS: Regular rate and rhythm, normal S1 and S2, no gallops, no murmurs, no rubs ABDOMEN: Soft, nontender. No hepatosplenomegaly, normal bowel sounds, no guarding or rigidity. EXTREMITIES: No clubbing, no edema, no cyanosis, 2+ pulses and upper and lower extremities. MUSCULOSKELETAL: Muscle strength and tone normal. SPINE: No scoliosis or deformity SKIN: No rashes CENTRAL NERVOUS SYSTEM: Alert and oriented -3. No focal deficits, tone is normal in all 4 extremities. PSYCHIATRIC: Alert and oriented -3. Appropriate affect. Intact judgment and insight. - Labs CBC & Chem 7: 12/14/18 06:22 12/14/18 06:22 Labs: Abnormal Lab Results - Last 24 Hours (Table) 12/13/18 12/13/18 12/13/18 Range/Units 11:30 16:37 20:50 WBC (3.8-10.6) k/uL Neutrophils # (1.3-7.7) k/uL Monocytes # (0-1.0) k/uL PT (9.0-12.0) sec INR (<1.2) Sodium (137-145) mmol/L Chloride (98-107) mmol/L Carbon Dioxide (22-30) mmol/L BUN (7-17) mg/dL POC Glucose (mg/dL) 100 H 208 H 215 H (75-99) mg/dL 12/14/18 12/14/18 12/14/18 Range/Units 06:22 06:22 07:53 WBC 12.9 H (3.8-10.6) k/uL Neutrophils # 10.5 H (1.3-7.7) k/uL Monocytes # 1.1 H (0-1.0) k/uL PT 25.3 H (9.0-12.0) sec INR 2.6 H (<1.2) Sodium 136 L (137-145) mmol/L Chloride 110 H (98-107) mmol/L Carbon Dioxide 19 L (22-30) mmol/L BUN 62 H (7-17) mg/dL POC Glucose (mg/dL) (75-99) mg/dL Assessment and Plan Plan: [address] segment elevation inferior wall myocardial infarction in a patient with known history of coronary artery disease. The patient underwent urgent cardiac catheterization and stenting of the RCA and today she is postop day #5 2 sinus bradycardia secondary to a wall myocardial infarction, recovered and the cardiac rhythm is sinus 3 chest pain, recovered 4 acute exacerbation of COPD/asthma, maintained on Symbicort on outpatient basis , was being treated for an acute bronchitis on outpatient basis with the response being not complete. She remains bronchospastic and wheezy and the chest x-ray is free of any acute pulmonary infiltrates. Recovery is slow at this point in time. Based on this, the CAT scan of the chest was done and the findings are essentially within normal limits. 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 Patient is afebrile, vital signs are stable, increase activity as tolerated. CAT scan of the chest was completed and showed no acute abnormalities. Possible discharge h ome today if her by cardiology, she will need outpatient follow-up with Dr. Blevins in 7-10 days. She can go home on prednisone taper, she can complete outpatient course of Augmentin, she can continue on her Symbicort. I performed a history & physical examination of the patient and discussed their management with my nurse practitioner, Viktoria Dillard. I reviewed the nurse practitioner's note and agree with the documented findings and plan of care. Lung sounds are positive for scattered wheezes throughout the lung neumann. The findings and the impression was discussed with the patient. I attest to the documentation by the nurse practitioner. Time with Patient: Less than 30
[2018-12-14] MEDS ORDERED: predniSONE 20 MG TAB PO SCH (11:45)
[2018-12-14 11:50] LABS: Glucose,Whole Blood 152 mg/dL (75-99)
[2018-12-14 11:56] VITALS: BP 109/60
--- NOTE | 2018-12-14 14:52 | P.PN ---
Subjective Progress Note Date: 12/14/18 This is a 73-year-old female with known history of diabetes, hypertension, hyperlipidemia, obesity, history of a blood clot in the right lower extremity for which the patient is on Coumadin, she also has a history of coronary artery disease for which she has underwent stent placement at [facility], exact details of that currently unavailable. Patient was brought to the emergency center via EMS, EMS was called because the patient states that she could not breathe. She did have a pressure sensation in her chest as well. On arrival there and EKG was performed by EMS which showed ST elevation in the inferior leads and patient was brought to [facility]. On the way here, patient did become quite hypotensive and bradycardic requiring atropine administration. On her arrival to the emergency room, she continued to have ST elevation in the inferior leads, states that she was quite nauseated short of breath and felt like she was going to pass out. Her rhythm showed normal sinus rhythm with persistence in ST elevation in the inferior leads. Her blood pressure was 87/40. Patient was advised that she would need to go to the [facility] and have an emergent cardiac catheterization performed, the risks and the benefits were explained to the patient in detail and she was willing to proceed. We do not currently have any lab data, or report of any chest x-ray. Patient was brought directly to the [facility]. Her home medications included Lipitor 80 mg daily, Coumadin 1.25 mg one daily week and 2.56 days a week, Plavix 75 mg daily, Imdur 30 mg daily, B12, folic acid, Levemir, lisinopril 5 mg daily, Symbicort, vitamin D, Cardizem 120 mg daily, Humalog insulin and Trulicity once a week. Patient did undergo angioplasty and stenting of the right coronary artery. She was seen and examined this morning, in no acute distress, she just feels extremely tired. Overall she does state that her breathing is improving. She took still continues to have a congestive cough, nonproductive. CT of the chest was completed yesterday and revealed no acute pulmonary abnormalities. Hemodynamically she is stable, denies any chest pain. Objective - Vital Signs Vital signs: Vital Signs Temp 97.5 F L 12/14/18 08:00 Pulse 89 12/14/18 12:00 Resp 16 12/14/18 12:00 BP 109/60 12/14/18 11:54 Pulse Ox 95 12/14/18 11:54 Intake & Output 12/13/18 12/14/18 12/14/18 18:59 06:59 18:59 Intake Total 360 420 Balance 360 420 Weight 88.7 kg Intake: Oral 360 420 Other: Voiding Method Toilet # Voids 1 1 - Exam GENERAL EXAM: Alert, pleasant, 73-year-old white female, sitting up in the recliner, on room air with sats of 95% comfortable in no apparent distress. HEAD: Normocephalic/atraumatic. EYES: Normal reaction of pupils, equal size. Conjunctiva pink, sclera white. NOSE: Clear with pink turbinates. THROAT: No erythema or exudates. NECK: No masses, no JVD, no thyroid enlargement, no adenopathy. CHEST: No chest wall deformity. Symmetrical expansion. LUNGS: Equal air entry with diffuse wheezes CVS: Regular rate and rhythm, normal S1 and S2, no gallops, no murmurs, no rubs ABDOMEN: Soft, nontender. No hepatosplenomegaly, normal bowel sounds, no guarding or rigidity. EXTREMITIES: No clubbing, no edema, no cyanosis, 2+ pulses and upper and lower extremities. MUSCULOSKELETAL: Muscle strength and tone normal. SPINE: No scoliosis or deformity SKIN: No rashes CENTRAL NERVOUS SYSTEM: Alert and oriented -3. No focal deficits, tone is normal in all 4 extremities. PSYCHIATRIC: Alert and oriented -3. Appropriate affect. Intact judgment and insight. - Labs CBC & Chem 7: 12/14/18 06:22 12/14/18 06:22 Labs: Abnormal Lab Results - Last 24 Hours (Table) 12/13/18 12/13/18 12/14/18 Range/Units 16:37 20:50 06:22 WBC 12.9 H (3.8-10.6) k/uL Neutrophils # 10.5 H (1.3-7.7) k/uL Monocytes # 1.1 H (0-1.0) k/uL PT (9.0-12.0) sec INR (<1.2) Sodium (137-145) mmol/L Chloride (98-107) mmol/L Carbon Dioxide (22-30) mmol/L BUN (7-17) mg/dL POC Glucose (mg/dL) 208 H 215 H (75-99) mg/dL 12/14/18 12/14/18 12/14/18 Range/Units 06:22 07:53 11:25 WBC (3.8-10.6) k/uL Neutrophils # (1.3-7.7) k/uL Monocytes # (0-1.0) k/uL PT 25.3 H (9.0-12.0) sec INR 2.6 H (<1.2) Sodium 136 L (137-145) mmol/L Chloride 110 H (98-107) mmol/L Carbon Dioxide 19 L (22-30) mmol/L BUN 62 H (7-17) mg/dL POC Glucose (mg/dL) 152 H (75-99) mg/dL Assessment and Plan Plan: Assessment and plan #[address] elevation myocardial infarction status post angioplasty and stenting of the RCA #2 history of coronary artery disease with prior stent placements #3 hypertension history #4 hyperlipidemia #5 diabetes #6 obesity #7 history of blood clots to the right lower extremity for which the patient was on Coumadin Plan From cardiology's perspective, we will recommend to continue the patient on her current medications. She may be able to be discharged home once cleared by primary and pulmonary service. We will make her a follow-up appointment in the office post discharge. DNP note has been reviewed, I agree with a documented findings and plan of care. Patient was seen and examined.
[2018-12-14 15:40] VITALS: PULSE 71
[2018-12-15] MEDS ORDERED: predniSONE 20 MG TAB PO SCH (09:00)
[2018-12-15] MEDS ORDERED: CLOPIDOGREL 75 MG TAB PO SCH (11:15)
--- NOTE | 2018-12-15 13:11 | CDI ---
Documentation Clarification Form Date: 12/15/18 From: Rola Li Phone: If you have a quesetion regarding this query, please contact Jo Ann Van at [phone] between 8am and 5pm. Admit Date: 12/08/2018 12:45:00 PM Patient Name: Yoana Lombardi Visit Number: [id number] Discharge Date: 12/14/2018 5:06:00 PM ATTENTION: The Clinical Documentation Specialists (CDI) and [facility] Coding Staff appreciate your assistance in clarifying documentation. Please respond to the clarification below the line at the bottom and electronically sign. The CDI & [facility] Coding staff will review the response and follow-up if needed. Please note: Queries are made part of the Legal Health Record. If you have any questions, please contact the author of this message via ITS. Dr. Red Matthews The patient presented with an inferior wall STEMI. The patient underwent stenting of the RCA. The patient also had acute exacerbation of COPD. Acute respiratory failure is documented in your 12/10 - 12/13 progress notes. History/Risk Factors: COPD, CAD with previous stents Home oxygen: None Clinical Indicators: Short of breath, wheezing bilaterally, elevated pulse, respiratory rate 26 - 39 Vital signs: 12/10: T. 97.4, P. 106, R. 26 - 39, BP 157/75 Pulse oximetry: 90 Lung/Breathing assessment: Prolonged expiratory phase of breathing and scattered expiratory wheezes. Treatment: Breathing tx: Duoneb, Pulmicort, Symbicort Continuous Pulse ox: 90 - 94% O2/Vent/BiPap 2 - 3 lpm per nasal cannula In your professional opinion, can you please clarify if these findings signify one of the following conditions? Specificity Acute Respiratory Failure With hypercapnia (pCO2 >50 and pH <7.35) Acute respiratory failure With hypoxia (pO2 <60 mm Hg or SpO2 <91% on room air) Unable to determine Acute respiratory failure With hypoxia MTDD
--- NOTE | 2018-12-22 21:53 | P.DS ---
Providers Date of admission: 12/08/18 12:45 Expected date of discharge: 12/14/18 Attending physician: Diane Alexis Consults: 12/08/18 12:55 Consult Physician Stat Consulting Provider: Irma Judd Consult Reason/Comments: STEMI Do you want consulting provider notified?: Already Contacted 12/08/18 14:16 Consult Physician Routine Consulting Provider: [facility] Consult Reason/Comments: Post Interventional patient Do you want consulting provider notified?: Already Contacted 12/09/18 07:29 Consult Physician Routine Consulting Provider: Sherrill Blevins Consult Reason/Comments: bronchitis Do you want consulting provider notified?: Yes, Notify in am Primary care physician: Physician Nonstaff Hospital Course: Discharge diagnosis [address] segment elevation inferior wall myocardial infarction in a patient with known history of coronary artery disease. The patient underwent urgent cardiac catheterization and stenting of the RCA and today she is postop day #5 2 sinus bradycardia secondary to myocardial infarction, recovered and the cardiac rhythm is sinus 3 chest pain, recovered 4 acute exacerbation of COPD/asthma, maintained on Symbicort on outpatient basis, was being treated for an acute bronchitis on outpatient basis with the response being not complete. Recovery is slow at this point in time. Based on this, the CAT scan of the chest was done and the findings are essentially within normal limits. 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 Patient was brought to the emergency center via EMS, EMS was called because the patient states that she could not breathe.Patient did undergo angioplasty and stenting of the right coronary artery. CT of the chest was completed yesterday and revealed no acute pulmonary abnormalities. Hemodynamically she is stable, denies any chest pain. Overall breathing status is much improved. Patient be continued on oral prednisone and antibiotics the form of Augmentin. Patient was seen by pulmonary and cardiology. PHYSICAL EXAMINATION: Patient is lying in the bed comfortably, no acute distress, awake alert and oriented.. HEENT: Normocephalic. Neck is supple. Pupils reactive. Nostrils clear. Oral cavity is moist. Ears reveal no drainage. Neck reveals no JVD, carotid bruits, or thyromegaly. CHEST EXAMINATION: Trachea is central. Symmetrical expansion. Expiratory wheeze present. Otherwise Lung neumann clear to auscultation and percussion. CARDIAC: Normal S1, S2 with no gallops. No murmurs ABDOMEN: Soft. Bowel sounds normal. No organomegaly. No abdominal bruits. Extremities: reveal no edema. No clubbing or cyanosis Neurologically awake, alert, oriented x3 with well-coordinated movements. No focal deficits noted Skin: No rash or skin lesions. Psychiatric: Coperative. Nonsuicidal Musculoskeletal: No joint swelling or deformity. Normal range of motion. Vital Signs Temp 97.5 F L 12/14/18 08:00 Pulse 89 12/14/18 12:00 Resp 16 12/14/18 12:00 BP 109/60 12/14/18 11:54 Pulse Ox 95 12/14/18 11:54 Intake & Output 12/13/18 12/14/18 12/14/18 18:59 06:59 18:59 Intake Total 360 420 Balance 360 420 Weight 88.7 kg Intake: Oral 360 420 Other: Voiding Method Toilet # Voids 1 1 Total time taken greater than 35 minutes including 18 minutes for counseling and coordination of care. Patient Condition at Discharge: Stable Plan - Discharge Summary Discharge Rx Participant: No New Discharge Prescriptions: New Dulaglutide [Trulicity] 1.5 mg SQ Q7D Aspirin 81 mg PO DAILY #30 chew Amoxic-Pot Clav 875-125Mg [Augmentin 875-125] 1 each PO Q12HR 5 Days #10 tab Nitroglycerin Sl Tabs [Nitrostat] 0.4 mg SUBLINGUAL Q5M PRN #50 tab PRN Reason: Chest Pain predniSONE See Taper PO DIRECTED #26 tab Metoprolol Succinate (ER) [Toprol XL] 25 mg PO DAILY #30 tab.er.24h Albuterol Inhaler [Ventolin Hfa Inhaler] 1 - 2 puff INHALATION RT-Q6H PRN #1 inhaler PRN Reason: Shortness Of Breath Lisinopril [Zestril] 10 mg PO BID #60 tab Continue INSULIN LISPRO (humaLOG) [humaLOG] 24 units SQ TID-W/MEALS Cholecalciferol [Vitamin D3 (25 Mcg = 1000 Iu)] 1,000 unit PO DAILY Bimatoprost [Lumigan .01% Ophth Soln] 1 drop RIGHT EYE DAILY Insulin Detemir (Levemir) [Levemir] 60 unit SQ DAILY Insulin Detemir (Levemir) [Levemir] 48 unit SQ HS Folic Acid 1 mg PO DAILY Ferrous Sulfate [Iron (65 MG Elemental)] 325 mg PO DAILY Clopidogrel [Plavix] 75 mg PO DAILY Atorvastatin [Lipitor] 80 mg PO DAILY Budesonide/Formoterol Fumarate [Symbicort 80-4.5 Mcg Inhaler] 1 puff INHALATION RT-BID Warfarin Sodium 1.25 - 2.5 mg PO DAILY Discontinued Lisinopril [Zestril] 5 mg PO DAILY Diltiazem Cd [Cardizem Cd] 120 mg PO DAILY Isosorbide Mononitrate ER [Imdur] 30 mg PO DAILY Discharge Medication List Atorvastatin [Lipitor] 80 mg PO DAILY 12/08/18 [History] Bimatoprost [Lumigan .01% Ophth Soln] 1 drop RIGHT EYE DAILY 12/08/18 [History] Budesonide/Formoterol Fumarate [Symbicort 80-4.5 Mcg Inhaler] 1 puff INHALATION RT-BID 12/08/18 [History] Cholecalciferol [Vitamin D3 (25 Mcg = 1000 Iu)] 1,000 unit PO DAILY 12/08/18 [History] Clopidogrel [Plavix] 75 mg PO DAILY 12/08/18 [History] Ferrous Sulfate [Iron (65 MG Elemental)] 325 mg PO DAILY 12/08/18 [History] Folic Acid 1 mg PO DAILY 12/08/18 [History] INSULIN LISPRO (humaLOG) [humaLOG] 24 units SQ TID-W/MEALS 12/08/18 [History] Insulin Detemir (Levemir) [Levemir] 48 unit SQ HS 12/08/18 [History] Insulin Detemir (Levemir) [Levemir] 60 unit SQ DAILY 12/08/18 [History] Warfarin Sodium 1.25 - 2.5 mg PO DAILY 12/09/18 [History] Albuterol Inhaler [Ventolin Hfa Inhaler] 1 - 2 puff INHALATION RT-Q6H PRN #1 inhaler 12/14/18 [Rx] Amoxic-Pot Clav 875-125Mg [Augmentin 875-125] 1 each PO Q12HR 5 Days #10 tab 12/14/18 [Rx] Aspirin 81 mg PO DAILY #30 chew 12/14/18 [Rx] Dulaglutide [Trulicity] 1.5 mg SQ Q7D 12/14/18 [Rx] Lisinopril [Zestril] 10 mg PO BID #60 tab 12/14/18 [Rx] Metoprolol Succinate (ER) [Toprol XL] 25 mg PO DAILY #30 tab.er.24h 12/14/18 [Rx] Nitroglycerin Sl Tabs [Nitrostat] 0.4 mg SUBLINGUAL Q5M PRN #50 tab 12/14/18 [Rx] predniSONE See Taper PO DIRECTED #26 tab 12/14/18 [Rx] Follow up Appointment(s)/Referral(s): Irma Judd MD [STAFF PHYSICIAN] - 1 Week (Office will call with follow up appointment if you do not wish to return to Dr. Adam. If you wish to keep your cancer genetics assistant and do not move, then please follow up in one week with Dr. Munoz.) Damari Ace DO [REFERRING] - 1-2 Days (Please call and make follow up with primary physician within one week of being discharged from the hospital. Patient wishing to look at her schedule before making follow up appointment.) Vicky Munoz DO [REFERRING] - 1 Week (Previous cancer genetics assistant.) Sherrill Blevins MD [STAFF PHYSICIAN] - 01/12/19 1:00 pm (Pulmonary.) Patient Instructions/Handouts: Heart Healthy Diet (DC), Acute Bronchitis (ED), Coronary Intravascular Stent Placement (DC), Blood Thinners (DC) Activity/Diet/Wound Care/Special Instructions: Iraj $43.40 per month. Discharge Disposition: HOME SELF-CARE
== END 2018-12-14 17:06 | disposition home or self-care (01) | DRG 246 ==
LOC: EC 12:37 → 2SICU 12:45 → 3SCARD 12-12 07:55
PROVIDERS: ADMIT Hospitalist; ATTEND Hospitalist
PROC: B2111ZZ Fluoroscopy of Multiple Coronary Arteries using Low Osmolar Contrast (ICD-10-PCS; 2018-12-08)
PROC: 027034Z Dilation of Coronary Artery, One Artery with Drug-eluting Intraluminal Device, Percutaneous Approach (ICD-10-PCS; principal; 2018-12-08 12:55)
PROC: 4A023N7 Measurement of Cardiac Sampling and Pressure, Left Heart, Percutaneous Approach (ICD-10-PCS; 2018-12-08 12:55)
DX: I21.19 ST elevation (STEMI) myocardial infarction involving other coronary artery of inferior wall (principal); R57.0 Cardiogenic shock; J96.01 Acute respiratory failure with hypoxia; J44.0 Chronic obstructive pulmonary disease with (acute) lower respiratory infection; J44.1 Chronic obstructive pulmonary disease with (acute) exacerbation; J90 Pleural effusion, not elsewhere classified; N17.9 Acute kidney failure, unspecified; E11.65 Type 2 diabetes mellitus with hyperglycemia; E83.42 Hypomagnesemia; J20.9 Acute bronchitis, unspecified; D63.8 Anemia in other chronic diseases classified elsewhere; E66.9 Obesity, unspecified; E78.5 Hyperlipidemia, unspecified; I10 Essential (primary) hypertension; I25.10 Atherosclerotic heart disease of native coronary artery without angina pectoris; Z79.01 Long term (current) use of anticoagulants; Z79.02 Long term (current) use of antithrombotics/antiplatelets; Z79.4 Long term (current) use of insulin; Z79.51 Long term (current) use of inhaled steroids; Z79.899 Other long term (current) drug therapy; Z95.5 Presence of coronary angioplasty implant and graft; Z86.718 Personal history of other venous thrombosis and embolism; Z68.32 Body mass index [BMI] 32.0-32.9, adult; Z88.1 Allergy status to other antibiotic agents; Z88.2 Allergy status to sulfonamides; Z88.8 Allergy status to other drugs, medicaments and biological substances; Z98.42 Cataract extraction status, left eye; Z98.41 Cataract extraction status, right eye; Z96.1 Presence of intraocular lens
CPT/HCPCS: 71045; 71250; 80048; 80061; 81001; 82550; 82553; 83036; 83735; 83880; 84100; 84484; 85025; 85610; 85730; 93306; 93458; 94640; 94760; 99291; C1874

== ENCOUNTER → 2018-12-18 | Outpatient (CLI) | payer MEDICARE ==
[2018-12-18 11:34] LABS: ALT 99 U/L (9-52); AST 58 U/L (14-36); Albumin/Globulin Ratio 1.3; Alkaline Phosphatase 117 U/L (38-126); Anion Gap 13 mmol/L; Blood Urea Nitrogen 97 mg/dL (7-17); Calcium 9.5 mg/dL (8.4-10.2); Carbon Dioxide 19 mmol/L (22-30); Chloride 101 mmol/L (98-107); Glucose 282 mg/dL (74-99); Potassium 5.8 mmol/L (3.5-5.1); Sodium 133 mmol/L (137-145); Total Bilirubin 0.8 mg/dL (0.2-1.3)
[2018-12-18 11:40] LABS: HCT 46.4 % (34.0-46.0); HGB 15.4 gm/dL (11.4-16.0); MCH 29.8 pg (25.0-35.0); MCHC 33.1 g/dL (31.0-37.0); MCV 90.1 fL (80.0-100.0); Mean Platelet Volume 8.2; Platelet Count 366 k/uL (150-450); RBC 5.15 m/uL (3.80-5.40); WBC 15.9 k/uL (3.8-10.6)
== END | disposition home or self-care (01) ==
LOC: LABWHC1 10:33
PROVIDERS: ATTEND Internal Medicine Interventional Cardiology
DX: I25.10 Atherosclerotic heart disease of native coronary artery without angina pectoris (principal)
CPT/HCPCS: 36415; 80053; 85027

== ENCOUNTER 2019-02-11 15:29 | Inpatient (IN) | payer MEDICARE ==
--- NOTE | 2019-02-11 15:38 | US ---
EXAMINATION TYPE: US venous doppler duplex LE LT DATE OF EXAM: 02/11/2019 3:28 PM COMPARISON: NONE CLINICAL HISTORY: M79.89 LLE swelling Z86.718 Hx DVT LLE. Left leg swelling SIDE PERFORMED: Left TECHNIQUE: The lower extremity deep venous system is examined utilizing real time linear array sonog anthony with graded compression, doppler sonography and color-flow sonography. VESSELS IMAGED: External Iliac Vein (EIV) Common Femoral Vein Deep Femoral Vein Greater Saphenous Vein * Femoral Vein Popliteal Vein Small Saphenous Vein * Proximal Calf Veins (* superficial vessels) Grayscale, color doppler, spectral doppler imaging performed of the deep veins of the left lower extr emity. Patient has history of DVT right leg and has a ob filter. Patient's doctor stated that she wa s unable to be on anticoagulants because of a bleeding ulcer. Left Leg: POSITIVE for DVT. There is thrombus seen from prox pop vein through prox calf veins. Ther e is no flow noted distal pop vein. IMPRESSION: Examination is positive for deep venous thrombosis within the proximal left popliteal ve in through the proximal calf veins. This finding was communicated to Dr. Soto by the before school babysitter at 1530 3:00 PM on 02/11/2019. The patient was taken to the ER per Dr. Wilder's request.
--- NOTE | 2019-02-11 16:12 | ED ---
General Adult HPI <Quintin Meredith - Last Filed: 02/11/19 17:19> - General Source: patient, RN notes reviewed Mode of arrival: wheelchair Limitations: no limitations <Volodymyr Helms - Last Filed: 02/11/19 17:52> - General Chief complaint: Extremity Injury, Lower Stated complaint: DVT came from US Time Seen by Provider: 02/11/19 15:45 - History of Present Illness Initial comments: Mrs. Lombardi is a 73-year-old female with a past medical history of DVT, GI bleed, hyperlipidemia, hypertension, DC, diabetes mellitus who presents to the emergency department for a chief complaint of abnormal outpatient ultrasound. Patient states she was diagnosed with a blood clot of the left lower extremity earlier today. States that she was on Coumadin up until a few weeks ago for multiple DVTs in the right lower extremity. States that she was taken off Coumadin a few weeks ago due to GI bleed from a duodenal ulcer. Patient states this has since resolved but she was put on a baby aspirin. States that when she went tomorrow would she started of swelling in her left foot that worsened up into her left leg. Ultrasound was ordered which found the blood clot. Does admit to pain in the foot but denies pain in the calf. Patient has no other complaints at this time including shortness of breath, chest pain, abdominal pain, nausea or vomiting, headache, or visual changes. (Volodymyr Helms) - Related Data Home Medications Medication Instructions Recorded Confirmed Atorvastatin [Lipitor] 80 mg PO DAILY 12/08/18 02/11/19 Bimatoprost [Lumigan .01% Ophth 1 drop RIGHT EYE DAILY 12/08/18 02/11/19 Soln] Budesonide/Formoterol Fumarate 1 puff INHALATION RT-BID 12/08/18 02/11/19 [Symbicort 80-4.5 Mcg Inhaler] Cholecalciferol [Vitamin D3 (25 1,000 unit PO DAILY 12/08/18 02/11/19 Mcg = 1000 Iu)] Folic Acid 1 mg PO DAILY 12/08/18 02/11/19 INSULIN LISPRO (humaLOG) [humaLOG] See Protocol SQ AC-TID 12/08/18 02/11/19 Insulin Detemir (Levemir) [Levemir] 12 unit SQ HS 02/11/19 02/11/19 Lisinopril [Zestril] 20 mg PO DAILY 02/11/19 02/11/19 Metoprolol Tartrate [Lopressor] 12.5 mg PO BID 02/11/19 02/11/19 Previous Rx's Medication Instructions Recorded Albuterol Inhaler [Ventolin Hfa 1 - 2 puff INHALATION RT-Q6H PRN 12/14/18 Inhaler] #1 inhaler Aspirin 81 mg PO DAILY #30 chew 12/14/18 Nitroglycerin Sl Tabs [Nitrostat] 0.4 mg SUBLINGUAL Q5M PRN #50 tab 12/14/18 Acetaminophen Tab [Tylenol] 650 mg PO Q6HR PRN tab 01/11/19 Clopidogrel [Plavix] 75 mg PO DAILY #14 tablet 01/11/19 Pantoprazole [Protonix] 40 mg PO AC-BID tablet. 01/11/19 Sucralfate [Carafate] 1 gm PO AC-BID tab 01/11/19 Allergies Allergy/AdvReac Type Severity Reaction Status Date / Time phenytoin [From Dilantin] Allergy Rash/Hives Verified 02/11/19 17:00 sulfamethoxazole Allergy Rash/Hives Verified 02/11/19 17:00 [From Bactrim] trimethoprim [From Bactrim] Allergy Rash/Hives Verified 02/11/19 17:00 Review of Systems ROS Other: All systems not noted in ROS Statement are negative. <Quintin Meredith - Last Filed: 02/11/19 17:19> ROS Other: All systems not noted in ROS Statement are negative. <Volodymyr Helms - Last Filed: 02/11/19 17:52> ROS Statement: Those systems with pertinent positive or pertinent negative responses have been documented in the HPI. Past Medical History Past Medical History: Unable to Obtain, Coronary Artery Disease (CAD), Diabetes Mellitus, Deep Vein Thrombosis (DVT), GERD/Reflux, GI Bleed, Hyperlipidemia, Hypertension, Myocardial Infarction (DC) Additional Past Medical History / Comment(s): 5 DVT's RLE Last Myocardial Infarction Date:: 12/08/18 History of Any Multi-Drug Resistant Organisms: None Reported Past Surgical History: Heart Catheterization With Stent Additional Past Surgical History / Comment(s): cataract surgery, left shoulder surgery, carpel tunnel left wrist, heart stents 3 in july 2017, 19 february 2017, 17 Nov 2018 Past Anesthesia/Blood Transfusion Reactions: No Reported Reaction Date of Last Stent Placement:: 12/08/18 Past Psychological History: No Psychological Hx Reported Smoking Status: Never smoker Past Alcohol Use History: Unable to Obtain Past Drug Use History: Unable to Obtain <Volodymyr Helms - Last Filed: 02/11/19 17:52> General Exam Limitations: no limitations General appearance: alert, in no apparent distress Head exam: Present: atraumatic Eye exam: Present: normal appearance, PERRL, EOMI. Absent: scleral icterus, conjunctival injection, periorbital swelling ENT exam: Present: normal exam, mucous membranes moist Neck exam: Present: normal inspection, full ROM. Absent: tenderness, meningismus, lymphadenopathy Respiratory exam: Present: normal lung sounds bilaterally. Absent: respiratory distress, wheezes, rales, rhonchi, stridor Cardiovascular Exam: Present: regular rate, normal rhythm, normal heart sounds. Absent: systolic murmur, diastolic murmur, rubs, gallop, clicks Extremities exam: Present: full ROM (Range motion of the left lower extremity), normal capillary refill (capillary refill less than 2 seconds, DP pulse 2+ in the left lower extremity). Absent: normal inspection, tenderness, pedal edema (Pedal edema noted as well as distal calf edema. Mild erythema noted in the distal calf as well.), joint swelling, calf tenderness (Significant tenderness of the calf) Neurological exam: Present: alert, oriented X3, CN II-XII intact Psychiatric exam: Present: normal affect, normal mood <Volodymyr Helms - Last Filed: 02/11/19 17:52> Course Vital Signs 02/11/19 15:35 Temperature 97.8 F Pulse Rate 68 Respiratory 18 Rate Blood Pressure 146/75 O2 Sat by Pulse 100 Oximetry Medical Decision Making - Lab Data Result diagrams: 02/11/19 16:05 02/11/19 16:05 <Quintin Meredith - Last Filed: 02/11/19 17:19> - Lab Data Result diagrams: 02/11/19 16:05 02/11/19 16:05 <Volodymyr Helms - Last Filed: 02/11/19 17:52> - Medical Decision Making Case was discussed with practitioner Volodymyr. Chart and results were reviewed. Case was also discussed with Dr. Alexis, who will admit covering for Dr. Sindi Alexis as well as Dr. Diaz. He does recommend heparin as well as CBC daily and Protonix. (Quintin Meredith) Mrs Lombardi is a 73-year-old female with a past medical history of DVT, GI bleed, hyperlipidemia, hypertension who presents to the emergency department for abnormal outpatient ultrasound. Patient was found to have a DVT in the popliteal vein of the left calf. Patient was on Coumadin for DVTs in the past but was taken off of this in December due to a GI bleed from a duodenal ulcer. She was put on aspirin. Patient states that since that time she has developed left foot pain which prompted an ultrasound to be ordered. On exam patient does have some pedal edema with some mild erythema noted of the left distal calf. She and CMP are unremarkable. Hemoglobin stable at 11.5 although patient does have a history of recent anemia. Dr Meredith discussed this case with Dr. Alexis who recommends high-dose heparin, 40 Protonix twice a day and a daily CBC. Patient will be admitted for heparin therapy. Outpatient ultrasound performed today at 1528 shows a DVT within the proximal left popliteal vein through the proximal calf veins (Volodymyr Helms) - Lab Data Lab Results 02/11/19 02/11/19 02/11/19 Range/Units 16:05 16:05 16:05 WBC 5.5 (3.8-10.6) k/uL RBC 3.83 (3.80-5.40) m/uL Hgb 11.5 (11.4-16.0) gm/dL Hct 34.5 (34.0-46.0) % MCV 90.1 (80.0-100.0) fL MCH 29.9 (25.0-35.0) pg MCHC 33.2 (31.0-37.0) g/dL RDW 16.8 H (11.5-15.5) % Plt Count 278 (150-450) k/uL Neutrophils % 66 % Lymphocytes % 22 % Monocytes % 6 % Eosinophils % 4 % Basophils % 1 % Neutrophils # 3.6 (1.3-7.7) k/uL Lymphocytes # 1.2 (1.0-4.8) k/uL Monocytes # 0.3 (0-1.0) k/uL Eosinophils # 0.2 (0-0.7) k/uL Basophils # 0.0 (0-0.2) k/uL Poikilocytosis Slight Anisocytosis Slight PT 10.7 (9.0-12.0) sec INR 1.0 (<1.2) APTT 26.0 (22.0-30.0) sec Sodium 143 (137-145) mmol/L Potassium 3.6 (3.5-5.1) mmol/L Chloride 107 (98-107) mmol/L Carbon Dioxide 25 (22-30) mmol/L Anion Gap 11 mmol/L BUN 16 (7-17) mg/dL Creatinine 0.84 (0.52-1.04) mg/dL Est GFR (CKD-EPI)AfAm 80 (>60 ml/min/1.73 sqM) Est GFR (CKD-EPI)NonAf 70 (>60 ml/min/1.73 sqM) Glucose 141 H (74-99) mg/dL Calcium 8.3 L (8.4-10.2) mg/dL Total Bilirubin 0.6 (0.2-1.3) mg/dL AST 18 (14-36) U/L ALT 13 (9-52) U/L Alkaline Phosphatase 84 (38-126) U/L Total Protein 6.7 (6.3-8.2) g/dL Albumin 3.9 (3.5-5.0) g/dL Disposition <Quintin Meredith - Last Filed: 02/11/19 17:19> Is patient prescribed a controlled substance at d/c from ED?: No Time of Disposition: 17:52 <Volodymyr Helms - Last Filed: 02/11/19 17:52> Clinical Impression: DVT of popliteal vein, History of GI bleed Disposition: ADMITTED IP TO THIS HOSP Condition: Fair Referrals: Mallory Wilder MD [Primary Care Provider] - 1-2 days
[2019-02-11 16:28] LABS: Anisocytosis Slight; Basophils % (A) 1 %; Eosinophils # (A) 0.2 k/uL (0-0.7); Eosinophils % (A) 4 %; HCT 34.5 % (34.0-46.0); HGB 11.5 gm/dL (11.4-16.0); Lymphocytes # (A) 1.2 k/uL (1.0-4.8); Lymphocytes % (A) 22 %; MCH 29.9 pg (25.0-35.0); MCHC 33.2 g/dL (31.0-37.0); MCV 90.1 fL (80.0-100.0); Mean Platelet Volume 7.1; Monocytes # (A) 0.3 k/uL (0-1.0); Monocytes % (A) 6 %; Neutrophils # (A) 3.6 k/uL (1.3-7.7); Neutrophils % (A) 66 %; Platelet Count 278 k/uL (150-450); Poikilocytosis Slight; RBC 3.83 m/uL (3.80-5.40); RDW 16.8 % (11.5-15.5); WBC 5.5 k/uL (3.8-10.6)
[2019-02-11 16:31] LABS: Prothrombin Time 10.7 sec (9.0-12.0)
[2019-02-11 16:33] LABS: Albumin 3.9 g/dL (3.5-5.0); Calcium 8.3 mg/dL (8.4-10.2); Potassium 3.6 mmol/L (3.5-5.1); Total Bilirubin 0.6 mg/dL (0.2-1.3); Total Protein 6.7 g/dL (6.3-8.2)
[2019-02-11] MEDS ORDERED: NALOXONE 0.4 MG/ML 1 ML VIAL IV PRN (17:45)
[2019-02-11] MEDS ORDERED: HEPARIN SODIUM,PORCINE 5,000 UNIT/ML 1 ML VIAL IV PRN (17:49)
[2019-02-11] MEDS ORDERED: HEPARIN SODIUM,PORCINE 10,000 UNIT/ML 1 ML VIAL IV ONE (17:49)
[2019-02-11] MEDS ORDERED: HEPARIN SOD,PORK IN 0.45% NACL 25,000 UNIT in 0.45% NACL 1 250ML.BAG IV SCH (18:00)
[2019-02-11] MEDS: SODIUM CHLORIDE 0.9% 1,000 ML IV SCH (18:30)
[2019-02-11 19:39] VITALS: BMI 30.1
[2019-02-11] MEDS ORDERED: NITROGLYCERIN SL TABS 0.4 MG TAB SUBLINGUAL PRN (19:54)
[2019-02-11] MEDS ORDERED: ALBUTEROL NEBULIZED 2.5 MG/3 ML INHALATION PRN (19:54)
[2019-02-11] MEDS: SYMBICORT 80-4.5 MCG INHALER INHALATION SCH (20:43)
[2019-02-11 21:54] LABS: Glucose,Whole Blood 162 mg/dL (75-99)
--- NOTE | 2019-02-11 22:06 | HP ---
HISTORY AND PHYSICAL CHIEF COMPLAINT: Pain and swelling of the left leg. HISTORY OF PRESENT ILLNESS: This 73-year-old woman with a past history of multiple medical problems including CAD, multiple DVTs on the right leg, history of diabetes type 2, history of GI bleed, history of GERD, hypertension, hyperlipidemia, myocardial infarction, history of 5 DVT's in the right lower lung being followed by Dr. Mallory Wilder in the outpatient setting was recently admitted to [facility]. The patient initially had GI bleed. The patient had multiple transfusions. Patient also was noted to have some elevated troponin. The patient was subsequently transferred to [facility] for a specialized procedure including a possible embolization, but however the reports are not available. However, it seems like the patient underwent a cardiac catheterization which showed one of the stents are blocked, but medical treatment is advised at this time. The patient is started on aspirin, Plavix. Patient discharged. The patient came home, but subsequently patient noted increased swelling and pain of the left leg and the patient was seen by Dr. Mallory Wilder, who recommended an ultrasound of the leg which was done today which showed positive for DVT in the posterior left popliteal vein throughout and also the proximal calf pains and the patient went to the ER and was admitted for further evaluation and treatment. Also note that the patient underwent IVC filter placement during the last admission by Dr. Catherine. There is no history of fever, rigors or chills. No history of headache, loss of consciousness or seizures at this time. PAST MEDICAL HISTORY: History of CAD, diabetes, DVT, GERD, GI bleed, hypertension, hyperlipidemia, myocardial infarction, history of CAD/stent. MEDICATIONS ARE: Home medications are: 1. Carafate 1 gram a.c. b.i.d. 2. Protonix 40 mg a.c. b.i.d. 3. Nitrostat 0.4 sublingual p.r.n. 4. Lopressor 12.5 mg p.o. b.i.d. 5. Zestril 20 mg p.o. daily. 6. Levemir 12 units subcu q.h.s. 7. Humalog before meals t.i.d. 8. Folic acid 1 mg p.o. daily. 9. Plavix 75 mg p.o. daily. 10.Vitamin D3 1000 daily. 11.Symbicort 80/4.5 1 puff b.i.d. 12.Lumigan 1 drop right eye daily. 13.Lipitor 80 mg p.o. daily. 14.Aspirin 81 mg p.o. daily. 15.Albuterol 1-2 puffs q.6h p.r.n. 16.Tylenol 650 q.6h p.r.n. ALLERGIES: PHENYTOIN, BACTRIM. FAMILY HISTORY: No history of heart disease or strokes in the family. SOCIAL HISTORY: No history of smoking. No history of alcohol intake. REVIEW OF SYSTEMS: ENT: Diminished vision. Diminished hearing. CARDIOVASCULAR: No angina or palpitations. RESPIRATION: As mentioned earlier. GASTROINTESTINAL: No nausea or vomiting. : No dysuria. NERVOUS SYSTEM: No numbness or weakness. ALLERGY/IMMUNOLOGY: No asthma or hayfever. MUSCULOSKELETAL: As mentioned earlier. HEMATOLOGY/ONCOLOGY: As mentioned earlier. ENDOCRINE: As mentioned earlier. CONSTITUTIONAL: As mentioned earlier. DERMATOLOGY: Negative. RHEUMATOLOGY negative. PSYCHIATRY as mentioned earlier. PHYSICAL EXAM: Patient is alert, oriented x3. Pulse is 66, blood pressure 153/75, respiration 18, temperature 98 degrees, pulse ox 99% on room air. Conjunctivae normal. Oral mucosa moist. NECK is no jugular venous distention. No carotid bruit. No lymph node enlargement. Cardiovascular system: S1, S2 muffled. RESPIRATORY: Breath sounds diminished in the bases. A few scattered rhonchi. No crackles. ABDOMEN: Soft, nontender. No mass palpable. LEGS: Significant swelling and pain of the left leg present. Minimal swelling of the right leg also present. NERVOUS SYSTEM: Higher functions as mentioned earlier. Moves all 4 limbs. No focal motor or sensory deficit. LYMPHATICS: No lymph nodes palpable in the neck, axillae or groin. JOINTS: No active deforming arthropathy. LAB STUDIES: WBC 5.5, hemoglobin 11.5, glucose 141. ASSESSMENT: 1. Acute deep vein thrombosis of the left popliteal and calf veins with severe pain and swelling. 2. History of recent significant gastrointestinal bleeding from peptic ulcer disease and duodenal ulcer, transferred to [facility]. 3. History of recent cardiac cath thru [facility]. 4. History of acute right leg deep vein thrombosis recently status post IVC filter placement. 5. History of multiple deep vein thrombosis on the right leg. 6. History of coronary artery disease, multiple stents. 7. Diabetes type 2. 8. Gastroesophageal reflux disease. 9. History of hypertension. 10.Hyperlipidemia. 11.Myocardial infarction. 12.History of degenerative joint disease. RECOMMENDATIONS AND DISCUSSION: In this 73-year-old woman who presented with multiple complex medical issues, at this time, I recommend to continue current medications, continue symptomatic treatment. IV heparin was initiated from the ER. I would recommend to stop the IV heparin because of significant issues of bleeding, passive bleeding during the recent admission which necessitated the patient transferred to [facility] because of the duodenal ulcer. I would obtain a vascular surgery and as well as Hematology/Oncology consultation regarding anticoagulation. I would recommend subcu heparin at this time. Otherwise, we will discuss with Dr. Catherine and Dr. Escobar. Otherwise, we will resume the rest of medications. Proton pump inhibitors. Antiplatelet agents. We will also continue to monitor. Prognosis guarded because of multiple complex medical issues. Further recommendations to follow. Discussed with the patient's family. A copy of dictation being forwarded to Dr. Mallory Wilder who is the primary physician. MMODL / IJN: [id number] /
[2019-02-11] MEDS: METOPROLOL TARTRATE 12.5 MG TAB PO SCH (22:12)
[2019-02-11] MEDS: INSULIN ASPART (NovoLOG) 100 UNIT/ML VIAL SQ SCH (22:12)
[2019-02-11] MEDS: INSULIN DETEMIR (LEVEMIR) 100 UNIT/ML SYR SQ SCH (22:12)
[2019-02-11] MEDS: PANTOPRAZOLE 40 MG/10 ML VIAL IVP SCH (22:13)
[2019-02-11] MEDS: SUCRALFATE 1 GM TAB PO SCH (22:13)
[2019-02-12] MEDS: HEPARIN SODIUM,PORCINE 5,000 UNIT/ML 1 ML VIAL SQ SCH ×4 (02:34→23:07)
[2019-02-12 04:59] LABS: Appearance,Urine Clear (Clear); Bilirubin,Urine Negative (Negative); Blood,Urine Negative (Negative); Color,Urine Light Yellow; Glucose,Urine (UA) Negative (Negative); Ketones,Urine Negative (Negative); Leukocyte Esterase,Urine Trace (Negative); Mucus,Urine Rare /hpf; Nitrite,Urine Negative (Negative); PH, Urine 5.5 (5.0-8.0); Protein,Urine Negative (Negative); Specific Gravity,Urine 1.009 (1.001-1.035); Squamous Epithelial Cell,Urine <1 /hpf (0-4); Urobilinogen,Urine <2.0 mg/dL (<2.0); WBC,Urine 3 /hpf (0-5)
[2019-02-12 05:36] LABS: Anisocytosis Slight; Basophils % (A) 1 %; Eosinophils # (A) 0.2 k/uL (0-0.7); Eosinophils % (A) 4 %; HCT 31.4 % (34.0-46.0); HGB 10.4 gm/dL (11.4-16.0); Lymphocytes # (A) 1.1 k/uL (1.0-4.8); Lymphocytes % (A) 23 %; MCH 30.2 pg (25.0-35.0); MCHC 33.1 g/dL (31.0-37.0); MCV 91.2 fL (80.0-100.0); Mean Platelet Volume 7.2; Monocytes # (A) 0.3 k/uL (0-1.0); Monocytes % (A) 6 %; Neutrophils # (A) 3.1 k/uL (1.3-7.7); Neutrophils % (A) 64 %; Platelet Count 271 k/uL (150-450); Poikilocytosis Slight; RBC 3.44 m/uL (3.80-5.40); WBC 4.9 k/uL (3.8-10.6)
[2019-02-12 05:49] LABS: Prothrombin Time 10.7 sec (9.0-12.0)
[2019-02-12 06:08] LABS: African American GFR (CKD) >90 (>60 ml/min/1.73 sqM); Anion Gap 6 mmol/L; Blood Urea Nitrogen 13 mg/dL (7-17); Calcium 7.6 mg/dL (8.4-10.2); Carbon Dioxide 26 mmol/L (22-30); Chloride 109 mmol/L (98-107); Glucose 116 mg/dL (74-99); Sodium 141 mmol/L (137-145)
[2019-02-12 07:02] LABS: Glucose,Whole Blood 116 mg/dL (75-99)
[2019-02-12] MEDS: INSULIN ASPART (NovoLOG) 100 UNIT/ML VIAL SQ SCH ×4 (07:07→22:18)
[2019-02-12] MEDS: CHOLECALCIFEROL 1,000 UNIT TAB PO SCH (07:17)
[2019-02-12] MEDS: FOLIC ACID 1 MG TAB PO SCH (07:17)
[2019-02-12] MEDS: METOPROLOL TARTRATE 12.5 MG TAB PO SCH ×2 (07:17→22:10)
[2019-02-12] MEDS: ATORVASTATIN 80 MG TAB PO SCH (07:17)
[2019-02-12] MEDS: ASPIRIN 81 MG PO SCH (07:17)
[2019-02-12] MEDS: SUCRALFATE 1 GM TAB PO SCH ×4 (07:18→22:18)
[2019-02-12] MEDS: CLOPIDOGREL 75 MG TAB PO SCH (07:18)
[2019-02-12] MEDS: LISINOPRIL 20 MG TAB PO SCH (07:18)
[2019-02-12] MEDS: LATANOPROST 0.005% OPHTH DROPS 2.5 ML BTL RIGHT EYE SCH (07:18)
[2019-02-12] MEDS: PANTOPRAZOLE 40 MG/10 ML VIAL IVP SCH (07:18)
[2019-02-12] MEDS: SODIUM CHLORIDE 0.9% 1,000 ML IV SCH ×2 (07:18→22:11)
[2019-02-12] MEDS: SYMBICORT 80-4.5 MCG INHALER INHALATION SCH ×2 (09:20→19:22)
[2019-02-12 12:03] LABS: Glucose,Whole Blood 128 mg/dL (75-99)
--- NOTE | 2019-02-12 12:10 | P.GSCN ---
History of Present Illness History of present illness: 73-year-old white female, Sergio is known to me she had a GI bleed and a we placed a filter in month of December. Patient was seen by Dr. Jones and found to have a DVT of the left popliteal vein by ultrasound and she's been admitted for further evaluation. On the last admission when she came GI bleed patient had a upper endoscopy and and had a fulguration of the ulcer. Since then patient has no evidence of bleeding Patient [facility] for further evaluation and reports are pending. She has history of coronary disease, history of diabetes mellitus, history of VA, On examination neck is supple no bruit appreciated Chest clear first and second sound normal Abdomen soft nontender Vascular examination femorals are palpable bilateral lateral dorsal pedis palpable on the left side patient has no vascular compromise no calf tenderness no evidence of phlegmasia Impression is DVT of the left popliteal vein, chronic DVT of the right leg, recently placed a vena cava filter patient is on heparin and I will discuss with Dr. Alexis at this point thrombolysis contact indicated because of her history of bleeding we'll follow with you thank you Past Medical History Past Medical History: Coronary Artery Disease (CAD), Diabetes Mellitus, Deep Vein Thrombosis (DVT), GERD/Reflux, GI Bleed, Hyperlipidemia, Hypertension, Myocardial Infarction (VA) Additional Past Medical History / Comment(s): 5 DVT's RLE Last Myocardial Infarction Date:: 12/08/18 History of Any Multi-Drug Resistant Organisms: None Reported Past Surgical History: Heart Catheterization With Stent Additional Past Surgical History / Comment(s): cataract surgery, left shoulder surgery, carpal tunnel left wrist, heart stents 3 in july 2017, 19 february 2017, 17 Nov 2018 Past Anesthesia/Blood Transfusion Reactions: No Reported Reaction Date of Last Stent Placement:: 12/08/18 Past Psychological History: No Psychological Hx Reported Smoking Status: Never smoker Past Alcohol Use History: Unable to Obtain Past Drug Use History: Unable to Obtain Medications and Allergies Home Medications Medication Instructions Recorded Confirmed Type Atorvastatin [Lipitor] 80 mg PO DAILY 12/08/18 02/11/19 History Bimatoprost [Lumigan .01% Ophth 1 drop RIGHT EYE DAILY 12/08/18 02/11/19 History Soln] Budesonide/Formoterol Fumarate 1 puff INHALATION RT-BID 12/08/18 02/11/19 History [Symbicort 80-4.5 Mcg Inhaler] Cholecalciferol [Vitamin D3 (25 1,000 unit PO DAILY 12/08/18 02/11/19 History Mcg = 1000 Iu)] Folic Acid 1 mg PO DAILY 12/08/18 02/11/19 History INSULIN LISPRO (humaLOG) [humaLOG] See Protocol SQ AC-TID 12/08/18 02/11/19 History Albuterol Inhaler [Ventolin Hfa 1 - 2 puff INHALATION RT-Q6H PRN 12/14/1802/11 Rx Inhaler] #1 inhaler Aspirin 81 mg PO DAILY #30 chew 12/14/18 02/11/19 Rx Nitroglycerin Sl Tabs [Nitrostat] 0.4 mg SUBLINGUAL Q5M PRN #50 tab 12/14/18 02/11/19 Rx Acetaminophen Tab [Tylenol] 650 mg PO Q6HR PRN tab 01/11/19 02/11/19 Rx Pantoprazole [Protonix] 40 mg PO AC-BID tablet. 01/11/19 02/11/19 Rx Sucralfate [Carafate] 1 gm PO AC-BID tab 01/11/19 02/11/19 Rx Insulin Detemir (Levemir) [Levemir] 12 unit SQ HS 02/11/19 02/11/19 History Lisinopril [Zestril] 20 mg PO DAILY 02/11/19 02/11/19 History Metoprolol Tartrate [Lopressor] 12.5 mg PO BID 02/11/19 02/11/19 History Allergies Allergy/AdvReac Type Severity Reaction Status Date / Time phenytoin [From Dilantin] Allergy Rash/Hives Verified 02/11/19 17:00 sulfamethoxazole Allergy Rash/Hives Verified 02/11/19 17:00 [From Bactrim] trimethoprim [From Bactrim] Allergy Rash/Hives Verified 02/11/19 17:00 Surgical - Exam Vital Signs Temp Pulse Resp BP Pulse Ox 97.8 F 68 18 146/75 100 02/11/19 15:35 02/11/19 15:35 02/11/19 15:35 02/11/19 15:35 02/11/19 15:35 Results - Labs 02/12/19 05:21 07/27/19 05:21 Abnormal Lab Results - Last 24 Hours (Table) 02/11/19 02/11/19 02/11/19 Range/Units 16:05 16:05 21:50 RBC (3.80-5.40) m/uL Hgb (11.4-16.0) gm/dL Hct (34.0-46.0) % RDW 16.8 H (11.5-15.5) % Potassium (3.5-5.1) mmol/L Chloride (98-107) mmol/L Glucose 141 H (74-99) mg/dL POC Glucose (mg/dL) 162 H (75-99) mg/dL Calcium 8.3 L (8.4-10.2) mg/dL Ur Leukocyte Esterase (Negative) Urine Mucus (None) /hpf 02/12/19 02/12/19 02/12/19 Range/Units 03:11 05:21 05:21 RBC 3.44 L (3.80-5.40) m/uL Hgb 10.4 L (11.4-16.0) gm/dL Hct 31.4 L (34.0-46.0) % RDW 17.0 H (11.5-15.5) % Potassium 3.0 L (3.5-5.1) mmol/L Chloride 109 H (98-107) mmol/L Glucose 116 H (74-99) mg/dL POC Glucose (mg/dL) (75-99) mg/dL Calcium 7.6 L (8.4-10.2) mg/dL Ur Leukocyte Esterase Trace H (Negative) Urine Mucus Rare H (None) /hpf 02/12/19 02/12/19 Range/Units 06:49 11:50 RBC (3.80-5.40) m/uL Hgb (11.4-16.0) gm/dL Hct (34.0-46.0) % RDW (11.5-15.5) % Potassium (3.5-5.1) mmol/L Chloride (98-107) mmol/L Glucose (74-99) mg/dL POC Glucose (mg/dL) 116 H 128 H (75-99) mg/dL Calcium (8.4-10.2) mg/dL Ur Leukocyte Esterase (Negative) Urine Mucus (None) /hpf Diabetes panel 02/11/19 02/12/19 Range/Units 16:05 05:21 Sodium 143 141 (137-145) mmol/L Potassium 3.6 3.0 L (3.5-5.1) mmol/L Chloride 107 109 H (98-107) mmol/L Carbon Dioxide 25 26 (22-30) mmol/L BUN 16 13 (7-17) mg/dL Creatinine 0.84 0.69 (0.52-1.04) mg/dL Glucose 141 H 116 H (74-99) mg/dL Calcium 8.3 L 7.6 L (8.4-10.2) mg/dL AST 18 (14-36) U/L ALT 13 (9-52) U/L Alkaline Phosphatase 84 (38-126) U/L Total Protein 6.7 (6.3-8.2) g/dL Albumin 3.9 (3.5-5.0) g/dL Calcium panel 02/11/19 02/12/19 Range/Units 16:05 05:21 Calcium 8.3 L 7.6 L (8.4-10.2) mg/dL Albumin 3.9 (3.5-5.0) g/dL Pituitary panel 02/11/19 02/12/19 Range/Units 16:05 05:21 Sodium 143 141 (137-145) mmol/L Potassium 3.6 3.0 L (3.5-5.1) mmol/L Chloride 107 109 H (98-107) mmol/L Carbon Dioxide 25 26 (22-30) mmol/L BUN 16 13 (7-17) mg/dL Creatinine 0.84 0.69 (0.52-1.04) mg/dL Glucose 141 H 116 H (74-99) mg/dL Calcium 8.3 L 7.6 L (8.4-10.2) mg/dL Adrenal panel 02/11/19 02/12/19 Range/Units 16:05 05:21 Sodium 143 141 (137-145) mmol/L Potassium 3.6 3.0 L (3.5-5.1) mmol/L Chloride 107 109 H (98-107) mmol/L Carbon Dioxide 25 26 (22-30) mmol/L BUN 16 13 (7-17) mg/dL Creatinine 0.84 0.69 (0.52-1.04) mg/dL Glucose 141 H 116 H (74-99) mg/dL Calcium 8.3 L 7.6 L (8.4-10.2) mg/dL Total Bilirubin 0.6 (0.2-1.3) mg/dL AST 18 (14-36) U/L ALT 13 (9-52) U/L Alkaline Phosphatase 84 (38-126) U/L Total Protein 6.7 (6.3-8.2) g/dL Albumin 3.9 (3.5-5.0) g/dL
--- NOTE | 2019-02-12 15:55 | PN ---
PROGRESS NOTE DATE OF SERVICE: 02/12/2019 This 73-year-old woman who was admitted with acute DVT of the left popliteal and calf veins also had a recent complicated medical history. The patient was transferred to [facility] because of increased significant GI bleed and bleeding peptic ulcer disease. However, the patient underwent cardiac catheterization at [facility] apparently. The patient is being closely monitored. Dr. Catherine has evaluated the patient and apparently thought that the patient has got contraindications for thrombolysis. Moreover, the left leg swelling is stable at this time. The patient is on subcutaneous heparin. Multiple consultants are following the patient. The patient is also on antiplatelet agents per [facility] recommendations. Past medical history reviewed. REVIEW OF SYSTEMS: CARDIOVASCULAR SYSTEM: No angina, palpitations. RESPIRATORY SYSTEM: As mentioned earlier. GI: No nausea, vomiting. : No dysuria or retention. NERVOUS SYSTEM: No numbness, weakness. CURRENT MEDICATIONS: Reviewed. They include: 1. Tylenol 650 q.6 p.r.n. 2. Ventolin 2.5 q.6 p.r.n. 3. Aspirin 81 mg daily. 4. Lipitor 80 mg daily. 5. Symbicort 80/4.5 one puff b.i.d. 6. Vitamin D3. 7. Plavix 75 mg daily. 8. Folic acid 1 mg p.o. daily. 9. Heparin 5000 units subcutaneously q.8. 10.Levemir. 11.Xalatan eyedrops. 12.Zestril 20 mg daily. 13.Lopressor 12.5 mg b.i.d. 14.Narcan 0.2 q.2 p.r.n. 15.Protonix 40 mg b.i.d. 16.Carafate 1 gram before meals and at bedtime. PHYSICAL EXAMINATION: Patient is alert, oriented x3. Pulse 60, blood pressure 146/76, respiration 14, temperature 97.3, pulse ox 98% on room air. HEENT: Conjunctivae pale. Oral mucosa moist. NECK: No jugular venous distention. No carotid bruit. No lymph node enlargement. CARDIOVASCULAR SYSTEM: S1, S2 muffled. No S3. No S4. RESPIRATORY SYSTEM: Breath sounds diminished at the bases. A few scattered rhonchi. No crackles. ABDOMEN: Soft, non-tender. No mass palpable. LEGS: Bilateral leg edema and swelling, left leg more than the right. NERVOUS SYSTEM: No focal deficit. LABS: WBC 4.9, hemoglobin 10.4. Accu-Cheks 116. Calcium 7.6. UA noted. ASSESSMENT: 1. Acute deep vein thrombosis of the left popliteal and calf veins with severe pain and swelling. 2. History of recent significant gastrointestinal bleeding from peptic ulcer disease and duodenal ulcer, transferred to [facility]. 3. Hypokalemia. 4. History of recent cardiac catheterization from [facility]. 5. History of acute deep venous thrombosis recently in the right leg, status post IVC filter placement. 6. History of multiple deep venous thromboses of the right leg. 7. History of coronary artery disease and multiple stents. 8. Diabetes mellitus, type 2. 9. History of gastroesophageal reflux disease. 10.Hypertension. 11.Hyperlipidemia. 12.History of myocardial infarction. 13.History of degenerative joint disease. 14.FULL CODE. RECOMMENDATIONS AND DISCUSSION: In this 73-year-old woman who presented with multiple complex medical issues, we will monitor the patient closely, continue the current management, continue with symptomatic treatment. Otherwise, we will continue with antiplatelet agents and will hold off the anticoagulants or thrombolysis because of the patient's high risk. Otherwise, we will continue the rest of the medications. Prognosis guarded. Discussed with family and patient at length, who understand and agree. Further recommendations to follow. MMODL / IJN: [id number] /
[2019-02-12] MEDS ORDERED: Potassium Replacement Protocol 1 EACH MISC MISCELLANE PRN ×3 (15:59→18:19)
[2019-02-12] MEDS: POTASSIUM CHLORIDE ER 20 MEQ TAB.ER PO SCH ×3 (16:45→23:07)
[2019-02-12 17:07] LABS: Glucose,Whole Blood 172 mg/dL (75-99)
[2019-02-12] MEDS: PANTOPRAZOLE 40 MG TABLET PO SCH (17:32)
[2019-02-12 18:02] LABS: Potassium 3.5 mmol/L (3.5-5.1)
--- NOTE | 2019-02-12 19:22 | P.CONS ---
History of Present Illness - Reason for Consult Consult date: 02/12/19 DVT with history of GI Bleed Requesting physician: Diane Alexis - Chief Complaint New DVT - History of Present Illness Ms Lombardi is a 73 year old female with a past medical history of DVT, GI bleed, hyperlipidemia, hypertension, PR, diabetes mellitus who presented to the [facility] after recommended from abnormal outpatient ultrasound. Patient states she was diagnosed with a blood clot of the left lower extremity earlier today. States that she was on Coumadin up until a few weeks ago for multiple DVTs in the right lower extremity. States that she was taken off Coumadin a few weeks ago due to GI bleed from a duodenal ulcer. Patient states this has since resolved but she was put on a baby aspirin. States that when she went tomorrow would she started of swelling in her left foot that worsened up into her left leg. Ultrasound was ordered which found the blood clot. Does admit to pain in the foot but denies pain in the calf. She follows with Dr. Elizabeth as outpatient for warfarin management, she does not recall hypercoag work-up. Review of Systems A 14 point review of systems was assessed and completed and are all negative except for HPI Past Medical History Past Medical History: Coronary Artery Disease (CAD), Diabetes Mellitus, Deep Vein Thrombosis (DVT), GERD/Reflux, GI Bleed, Hyperlipidemia, Hypertension, Myocardial Infarction (PR) Additional Past Medical History / Comment(s): 5 DVT's RLE Last Myocardial Infarction Date:: 12/08/18 History of Any Multi-Drug Resistant Organisms: None Reported Past Surgical History: Heart Catheterization With Stent Additional Past Surgical History / Comment(s): cataract surgery, left shoulder surgery, carpal tunnel left wrist, heart stents 3 in july 2017, 19 february 2017, 17 Nov 2018 Past Anesthesia/Blood Transfusion Reactions: No Reported Reaction Date of Last Stent Placement:: 12/08/18 Past Psychological History: No Psychological Hx Reported Smoking Status: Never smoker Past Alcohol Use History: Unable to Obtain Past Drug Use History: Unable to Obtain Medications and Allergies Home Medications Medication Instructions Recorded Confirmed Type Atorvastatin [Lipitor] 80 mg PO DAILY 12/08/18 02/11/19 History Bimatoprost [Lumigan .01% Ophth 1 drop RIGHT EYE DAILY 12/08/18 02/11/19 History Soln] Budesonide/Formoterol Fumarate 1 puff INHALATION RT-BID 12/08/18 02/11/19 History [Symbicort 80-4.5 Mcg Inhaler] Cholecalciferol [Vitamin D3 (25 1,000 unit PO DAILY 12/08/18 02/11/19 History Mcg = 1000 Iu)] Folic Acid 1 mg PO DAILY 12/08/18 02/11/19 History INSULIN LISPRO (humaLOG) [humaLOG] See Protocol SQ AC-TID 12/08/18 02/11/19 History Albuterol Inhaler [Ventolin Hfa 1 - 2 puff INHALATION RT-Q6H PRN 12/14/18 02/11/19 Rx Inhaler] #1 inhaler Aspirin 81 mg PO DAILY #30 chew 12/14/18 02/11/19 Rx Nitroglycerin Sl Tabs [Nitrostat] 0.4 mg SUBLINGUAL Q5M PRN #50 tab 12/14/18 02/11/19 Rx Acetaminophen Tab [Tylenol] 650 mg PO Q6HR PRN tab 01/11/19 02/11/19 Rx Pantoprazole [Protonix] 40 mg PO AC-BID tablet. 01/11/19 02/11/19 Rx Sucralfate [Carafate] 1 gm PO AC-BID tab 01/11/19 02/11/19 Rx Insulin Detemir (Levemir) [Levemir] 12 unit SQ HS 02/11/19 02/11/19 History Lisinopril [Zestril] 20 mg PO DAILY 02/11/19 02/11/19 History Metoprolol Tartrate [Lopressor] 12.5 mg PO BID 02/11/19 02/11/19 History Allergies Allergy/AdvReac Type Severity Reaction Status Date / Time phenytoin [From Dilantin] Allergy Rash/Hives Verified 02/11/19 17:00 sulfamethoxazole Allergy Rash/Hives Verified 02/11/19 17:00 [From Bactrim] trimethoprim [From Bactrim] Allergy Rash/Hives Verified 02/11/19 17:00 Physical Exam Vitals: Vital Signs Temp Pulse Resp BP Pulse Ox 02/12/19 12:11 97.7 F 53 L 16 150/76 99 02/12/19 05:25 97.8 F 60 14 146/76 98 02/12/19 00:00 65 16 02/11/19 20:20 97.7 F 65 16 159/73 99 Intake and Output 02/12/19 02/12/19 02/12/19 06:59 14:59 22:59 Output Total 0 Balance 0 Output: Stool 0 Other: Voiding Method Bedside Commode # Voids 0 1 1 # Bowel Movements 1 General: Alert and Oriented x3, No Acute Distress Head: Normocytic, Atraumatic Neck: Supple Mouth: No Lesions, No Thrush Eyes: Non-sclerotic No Palpable cervical, supraclavicular, axillary adenopathy Heart: Regular Rate, Regular Rhythm Lungs: Clear to Ausculations, No Wheeze, No Rhonchi, Diminishe bilateral lower lobes, No increased respiratory effort noted Abdomen: Soft, Non-Distended, Non-Tended, BSx4 Extremities: No Edema, Equal Strength Neurological: No Focal Defects: No sensory or motor deficits noted Psych: Calm and cooperative Results CBC & Chem 7: 02/12/19 05:21 02/12/19 17:15 Labs: Abnormal Lab Results - Last 24 Hours (Table) 02/11/19 02/12/19 02/12/19 Range/Units 21:50 03:11 05:21 RBC 3.44 L (3.80-5.40) m/uL Hgb 10.4 L (11.4-16.0) gm/dL Hct 31.4 L (34.0-46.0) % RDW 17.0 H (11.5-15.5) % Potassium (3.5-5.1) mmol/L Chloride (98-107) mmol/L Glucose (74-99) mg/dL POC Glucose (mg/dL) 162 H (75-99) mg/dL Calcium (8.4-10.2) mg/dL Ur Leukocyte Esterase Trace H (Negative) Urine Mucus Rare H (None) /hpf 02/12/19 02/12/19 02/12/19 Range/Units 05:21 06:49 11:50 RBC (3.80-5.40) m/uL Hgb (11.4-16.0) gm/dL Hct (34.0-46.0) % RDW (11.5-15.5) % Potassium 3.0 L (3.5-5.1) mmol/L Chloride 109 H (98-107) mmol/L Glucose 116 H (74-99) mg/dL POC Glucose (mg/dL) 116 H 128 H (75-99) mg/dL Calcium 7.6 L (8.4-10.2) mg/dL Ur Leukocyte Esterase (Negative) Urine Mucus (None) /hpf 02/12/19 02/12/19 Range/Units 16:52 17:15 RBC (3.80-5.40) m/uL Hgb (11.4-16.0) gm/dL Hct (34.0-46.0) % RDW (11.5-15.5) % Potassium (3.5-5.1) mmol/L Chloride 108 H (98-107) mmol/L Glucose (74-99) mg/dL POC Glucose (mg/dL) 172 H (75-99) mg/dL Calcium (8.4-10.2) mg/dL Ur Leukocyte Esterase (Negative) Urine Mucus (None) /hpf Assessment and Plan Plan: Assessment and Recommendations: Hx: Of Multiple DVT on Warfarin as outpatient: - Recently stopped for GI Bleeding with duodenal ulcer - IVC placed at that time - December 2018 Now with increased acute DVT LE: -Acute Popliteal and chronic DVT noted - Would still recommend AC therapy, would continue Heparin IV no bolus and monitor 24-48 hours if no bleeding can discharge on lovenox bridge to coumadin or lovenox alone and continue close outpatient monitoring - If no Hypercoag work-up as outpatient would recommend for risks as if hypercoaguable state even with IVC anticoagualtion recommended PLan: Hold AC therapy until GI Clears - PLan to discharge and follow very closely with Dr. Elizabeth as outpatient, rec hypercoag work-up and lovcenox daily 1.5mg/kg/day once risk of bleeding is decreased evidenced by ilcers healing Discussd with Dr. Alexis Patient fully aware of risks and benefits of AC therapy versus none with IVC
[2019-02-12 20:36] LABS: Glucose,Whole Blood 227 mg/dL (75-99)
[2019-02-12] MEDS: INSULIN DETEMIR (LEVEMIR) 100 UNIT/ML SYR SQ SCH (22:12)
[2019-02-12] MEDS: ACETAMINOPHEN TAB 325 MG TAB PO PRN (23:08)
[2019-02-13] MEDS ORDERED: Potassium Replacement Protocol 1 EACH MISC MISCELLANE PRN (01:57)
[2019-02-13] MEDS: POTASSIUM CHLORIDE ER 20 MEQ TAB.ER PO SCH ×2 (04:40→05:39)
[2019-02-13 07:04] LABS: Glucose,Whole Blood 130 mg/dL (75-99)
[2019-02-13] MEDS: INSULIN ASPART (NovoLOG) 100 UNIT/ML VIAL SQ SCH ×4 (08:27→20:49)
[2019-02-13] MEDS: SUCRALFATE 1 GM TAB PO SCH ×4 (08:42→20:49)
[2019-02-13] MEDS: ASPIRIN 81 MG PO SCH (08:42)
[2019-02-13] MEDS: CHOLECALCIFEROL 1,000 UNIT TAB PO SCH (08:42)
[2019-02-13] MEDS: LISINOPRIL 20 MG TAB PO SCH (08:42)
[2019-02-13] MEDS: METOPROLOL TARTRATE 12.5 MG TAB PO SCH ×2 (08:42→20:49)
[2019-02-13] MEDS: ATORVASTATIN 80 MG TAB PO SCH (08:42)
[2019-02-13] MEDS: PANTOPRAZOLE 40 MG TABLET PO SCH ×2 (08:42→17:38)
[2019-02-13] MEDS: HEPARIN SODIUM,PORCINE 5,000 UNIT/ML 1 ML VIAL SQ SCH ×2 (08:42→16:07)
[2019-02-13] MEDS: FOLIC ACID 1 MG TAB PO SCH (08:42)
[2019-02-13] MEDS: CLOPIDOGREL 75 MG TAB PO SCH (08:43)
[2019-02-13] MEDS: LATANOPROST 0.005% OPHTH DROPS 2.5 ML BTL RIGHT EYE SCH (08:43)
[2019-02-13] MEDS: SYMBICORT 80-4.5 MCG INHALER INHALATION SCH ×2 (09:02→19:58)
[2019-02-13 09:35] LABS: Basophils % (A) 1 %; Eosinophils # (A) 0.1 k/uL (0-0.7); Eosinophils % (A) 3 %; HCT 34.5 % (34.0-46.0); HGB 11.1 gm/dL (11.4-16.0); Lymphocytes # (A) 0.9 k/uL (1.0-4.8); Lymphocytes % (A) 18 %; MCH 29.1 pg (25.0-35.0); MCV 90.8 fL (80.0-100.0); Mean Platelet Volume 7.5; Monocytes # (A) 0.4 k/uL (0-1.0); Monocytes % (A) 7 %; Neutrophils # (A) 3.7 k/uL (1.3-7.7); Neutrophils % (A) 70 %; Platelet Count 254 k/uL (150-450); WBC 5.2 k/uL (3.8-10.6)
[2019-02-13 09:46] LABS: African American GFR (CKD) >90 (>60 ml/min/1.73 sqM); Anion Gap 9 mmol/L; Blood Urea Nitrogen 8 mg/dL (7-17); Calcium 8.1 mg/dL (8.4-10.2); Carbon Dioxide 24 mmol/L (22-30); Chloride 109 mmol/L (98-107); Glucose 186 mg/dL (74-99); Potassium 4.3 mmol/L (3.5-5.1); Sodium 142 mmol/L (137-145)
[2019-02-13 10:07] LABS: Prothrombin Time 10.6 sec (9.0-12.0)
--- NOTE | 2019-02-13 11:09 | P.PN ---
<Terrie Duff - Last Filed: 02/13/19 12:32> Subjective Progress Note Date: 02/13/19 Principal diagnosis: Acute Popliteal DVT off anticoagulation No acute complaints Objective - Vital Signs Vital signs: Vital Signs Temp 97.3 F L 02/13/19 05:00 Pulse 56 L 02/13/19 05:00 Resp 18 02/13/19 05:00 BP 123/71 02/13/19 05:00 Pulse Ox 96 02/13/19 05:00 Intake & Output 02/12/19 02/13/19 02/13/19 18:59 06:59 18:59 Intake Total 650 Output Total 0 Balance 650 Intake: Oral 650 Output: Stool 0 Other: Voiding Method Bedside Commode Bedside Commode # Voids 1 1 1 # Bowel Movements 1 1 1 - Exam Gen: Alert and orient Head: NCNT Neck: Supple Lungs: CTA bilat Abd: Soft, ND Heart RRR Ext: Edema - Labs CBC & Chem 7: 02/13/19 08:48 02/13/19 08:48 Labs: Abnormal Lab Results - Last 24 Hours (Table) 02/12/19 02/12/19 02/12/19 Range/Units 11:50 16:52 17:15 Hgb (11.4-16.0) gm/dL RDW (11.5-15.5) % Lymphocytes # (1.0-4.8) k/uL Chloride 108 H (98-107) mmol/L Glucose (74-99) mg/dL POC Glucose (mg/dL) 128 H 172 H (75-99) mg/dL Calcium (8.4-10.2) mg/dL 02/12/19 02/13/19 02/13/19 Range/Units 20:23 06:44 08:48 Hgb 11.1 L (11.4-16.0) gm/dL RDW 16.0 H (11.5-15.5) % Lymphocytes # 0.9 L (1.0-4.8) k/uL Chloride (98-107) mmol/L Glucose (74-99) mg/dL POC Glucose (mg/dL) 227 H 130 H (75-99) mg/dL Calcium (8.4-10.2) mg/dL 02/13/19 Range/Units 08:48 Hgb (11.4-16.0) gm/dL RDW (11.5-15.5) % Lymphocytes # (1.0-4.8) k/uL Chloride 109 H (98-107) mmol/L Glucose 186 H (74-99) mg/dL POC Glucose (mg/dL) (75-99) mg/dL Calcium 8.1 L (8.4-10.2) mg/dL Assessment and Plan Plan: Assessment and Recommendations: Hx: Of Multiple DVT on Warfarin as outpatient: - Recently stopped for GI Bleeding with duodenal ulcer - IVC placed at that time - December 2018 Now with increased acute DVT LE: -Acute Popliteal and chronic DVT noted - Would still recommend AC therapy, would continue Heparin IV no bolus and monitor 24-48 hours if no bleeding can discharge on lovenox bridge to coumadin or lovenox alone and continue close outpatient monitoring - If no Hypercoag work-up as outpatient would recommend for risks as if hypercoaguable state even with IVC anticoagualtion recommended PLan: Hold AC therapy until GI Clears - PLan to discharge and follow very closely with Dr. Mora as outpatient, rec hypercoag work-up and lovcenox daily 1.5mg/kg/day once risk of bleeding is decreased evidenced by ilcers healing Discussd with Dr. Alexis Patient fully aware of risks and benefits of AC therapy versus none with IVC Continue to recommend anticoagulation at discharge at minimum with prophylaxis, and Dr. Mora to take over AC therapy Physician Attes: I have completed the fulll history and physical and agree with above dictation, I have devlloped the impression and plan, dictated as a scribe <Claudine Vega - Last Filed: 02/13/19 19:26> Objective - Vital Signs Vital signs: Vital Signs Temp 98.1 F 02/13/19 12:05 Pulse 69 02/13/19 12:05 Resp 20 02/13/19 12:05 BP 132/83 02/13/19 12:05 Pulse Ox 97 02/13/19 12:05 Intake & Output 02/13/19 02/13/19 02/14/19 06:59 18:59 06:59 Intake Total 650 Output Total 0 Balance 650 Intake: Oral 650 Output: Stool 0 Other: Voiding Method Bedside Commode # Voids 1 1 # Bowel Movements 1 1 - Labs CBC & Chem 7: 02/13/19 08:48 02/13/19 08:48 Labs: Abnormal Lab Results - Last 24 Hours (Table) 02/12/19 02/13/19 02/13/19 Range/Units 20:23 06:44 08:48 Hgb 11.1 L (11.4-16.0) gm/dL RDW 16.0 H (11.5-15.5) % Lymphocytes # 0.9 L (1.0-4.8) k/uL Chloride (98-107) mmol/L Glucose (74-99) mg/dL POC Glucose (mg/dL) 227 H 130 H (75-99) mg/dL Calcium (8.4-10.2) mg/dL 02/13/19 02/13/19 02/13/19 Range/Units 08:48 11:52 17:01 Hgb (11.4-16.0) gm/dL RDW (11.5-15.5) % Lymphocytes # (1.0-4.8) k/uL Chloride 109 H (98-107) mmol/L Glucose 186 H (74-99) mg/dL POC Glucose (mg/dL) 214 H 182 H (75-99) mg/dL Calcium 8.1 L (8.4-10.2) mg/dL Assessment and Plan Plan: The patient was seen and examined by me and discussed with nurse practitioner Terrie, Agree with the assessment and plan formulated. With a history of multiple deep vein thromboses and now with new acute popliteal DVT and chronic DVT would still recommend anticoagulation. At this point the patient is only on subcutaneous heparin. We could try a full anticoagulation w ith Lovenox and close monitoring. At this point the primary team feels comfortable with prophylactic dose only which is appropriate as well since the new acute DVT is below the knee. Claudine Vega M.D.
[2019-02-13 12:03] LABS: Glucose,Whole Blood 214 mg/dL (75-99)
[2019-02-13 17:20] LABS: Glucose,Whole Blood 182 mg/dL (75-99)
--- NOTE | 2019-02-13 19:55 | PN ---
PROGRESS NOTE DATE OF SERVICE: 02/13/2019 This 73-year-old woman was admitted with significant multiple complex medical issues including acute DVT of the left leg, also had previously multiple DVTs in the right leg. Please note patient recently had severe episodes of severe GI bleed which necessitated multiple transfusions and transferred to tertiary care center at [facility] where apparently they performed a cardiac catheterization which found a blocked stent for which the patient was started on aspirin and Plavix. Currently hematology/oncology following the patient. Dr. Catherine has seen the patient from the vascular surgery point of view and thought the patient is not a candidate for thrombolysis or any other maneuvers. The patient is currently kept on subcu heparin 3 times a day and the patient is evaluated by Hematology/Oncology for continued anticoagulation and the choice of anticoagulation. PAST MEDICAL HISTORY: Reviewed. REVIEW OF SYSTEMS: CARDIOVASCULAR SYSTEM: No angina or palpitations. RESPIRATION as mentioned earlier. GASTROINTESTINAL: As mentioned earlier. no dysuria. NERVOUS SYSTEM: No numbness or weakness. VASCULAR: As mentioned earlier. CURRENT MEDICATIONS: Reviewed and include: 1. Tylenol 650 q.6 p.r.n. 2. Ventolin. 3. Aspirin 81 mg. 4. Lipitor 80 mg. 5. Symbicort daily 7.5 b.i.d. 6. Vitamin D3 1000 daily. 7. Folic acid 1 mg. 8. Heparin subcu q.i.d. 9. NovoLog a.c. and q.h.s. 10.Levemir 12 units subcu q.h.s. 11.Xalatan 0.005 one drop right eye. 12.Zestril 20 mg p.o. daily. 13.Lopressor 12.5 mg b.i.d. 14.Replacement protocols. 15.Narcan 0.2 q.2h IV p.r.n. 16.Nitrostat 0.4 sublingual p.r.n. 17.Protonix 40 mg p.o. daily. 18.Carafate 1 g p.o. a.c. and at bedtime. PHYSICAL EXAM: Patient is alert and oriented x2. Pulse 69, blood pressure 130/83, respiration 20, temperature 98.1, pulse ox 97% on room air. HEENT: Conjunctivae normal. Oral mucosa moist. NECK is no jugular venous distention. No carotid bruit. No lymph node enlargement. CARDIOVASCULAR: S1, S2 muffled. No S3, no S4. RESPIRATORY: Breath sounds diminished in the bases. No rhonchi. No crackles. ABDOMEN: Soft, nontender. No mass palpable. LEGS: No edema. No swelling. NERVOUS SYSTEM: Higher functions as mentioned earlier. Moves all 4 limbs. No focal motor or sensory deficits. Lymphatics: No lymph nodes palpable in the neck, axillae or groin. SKIN: No ulcer, no rashes. No bleeding. JOINTS: No active deforming arthropathy. LABS: Hemoglobin 11.1. Otherwise sodium 140, potassium 4.8. Accu-Cheks are 214, calcium 8.1. ASSESSMENT: 1. Acute deep vein thrombosis of the left popliteal and calf veins with severe pain and swelling. 2. History of recent significant gastrointestinal bleed from peptic ulcer disease and duodenal ulcer transferred to [facility] at that time. 3. Hypokalemia. 4. History of recent cardiac catheterization at [facility] showing a blocked stent on medical treatment. 5. History of acute deep vein thrombosis recently of the right leg, status post IVC filter placement. 6. 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 7. History of coronary artery disease and multiple stents. 8. Diabetes type 2. 9. History of gastroesophageal reflux disease. 10.Hypertension. 11.Hyperlipidemia. 12.History of myocardial infarction. 13.History of degenerative joint disease. 14.FULL CODE. RECOMMENDATIONS AND DISCUSSION: In this 73-year-old woman who presented with multiple complex medical issues, at this time, I recommend to continue current medications, management and symptomatic treatment. As mentioned earlier, the patient has got significant medical issues with gastrointestinal bleed. The patient was apparently previously on anticoagulation which has to be stopped because of the GI bleed. Currently I would monitor the patient along with multiple consultations and we will decide on the outpatient anticoagulation at the time of discharge if the patient is stable and no evidence of bleeding. Please note that the [facility] has recommended continued aspirin and Plavix for the blocked stent and coronary artery disease. I would recommend close monitoring and once the patient is stabilized, start one of the anticoagulants or Lovenox 1.5 mg/kg per day and continued close monitoring. The prognosis extremely guarded because of multiple complex medical issues as described earlier. Further recommendations to follow. MMODL / IJN: [id number] /
[2019-02-13] MEDS: INSULIN DETEMIR (LEVEMIR) 100 UNIT/ML SYR SQ SCH (20:49)
[2019-02-13] MEDS: ACETAMINOPHEN TAB 325 MG TAB PO PRN (20:49)
[2019-02-13] MEDS: SODIUM CHLORIDE 0.9% 1,000 ML IV SCH (20:50)
[2019-02-13 21:04] LABS: Glucose,Whole Blood 196 mg/dL (75-99)
[2019-02-13 22:39] VITALS: RESP 16
[2019-02-14] MEDS: HEPARIN SODIUM,PORCINE 5,000 UNIT/ML 1 ML VIAL SQ SCH ×2 (00:15→08:04)
[2019-02-14 05:10] VITALS: BP 146/82; PULSE 65; TEMP 97.4
[2019-02-14 07:14] LABS: Glucose,Whole Blood 137 mg/dL (75-99)
[2019-02-14] MEDS: SYMBICORT 80-4.5 MCG INHALER INHALATION SCH (07:17)
[2019-02-14] MEDS: METOPROLOL TARTRATE 12.5 MG TAB PO SCH (08:04)
[2019-02-14] MEDS: LISINOPRIL 20 MG TAB PO SCH (08:04)
[2019-02-14] MEDS: ATORVASTATIN 80 MG TAB PO SCH (08:04)
[2019-02-14] MEDS: ASPIRIN 81 MG PO SCH (08:04)
[2019-02-14] MEDS: SUCRALFATE 1 GM TAB PO SCH ×2 (08:04→14:02)
[2019-02-14] MEDS: LATANOPROST 0.005% OPHTH DROPS 2.5 ML BTL RIGHT EYE SCH (08:04)
[2019-02-14] MEDS: FOLIC ACID 1 MG TAB PO SCH (08:04)
[2019-02-14] MEDS: PANTOPRAZOLE 40 MG TABLET PO SCH (08:04)
[2019-02-14] MEDS: CHOLECALCIFEROL 1,000 UNIT TAB PO SCH (08:05)
[2019-02-14] MEDS: INSULIN ASPART (NovoLOG) 100 UNIT/ML VIAL SQ SCH ×2 (08:13→14:03)
[2019-02-14 10:49] LABS: Anisocytosis Slight; Basophils # (A) 0.1 k/uL (0-0.2); Basophils % (A) 1 %; Eosinophils # (A) 0.2 k/uL (0-0.7); Eosinophils % (A) 3 %; HCT 34.3 % (34.0-46.0); HGB 10.9 gm/dL (11.4-16.0); Lymphocytes # (A) 0.9 k/uL (1.0-4.8); Lymphocytes % (A) 16 %; MCH 28.8 pg (25.0-35.0); MCHC 31.7 g/dL (31.0-37.0); MCV 91.1 fL (80.0-100.0); Mean Platelet Volume 7.6; Monocytes # (A) 0.4 k/uL (0-1.0); Monocytes % (A) 7 %; Neutrophils % (A) 72 %; Platelet Count 265 k/uL (150-450); RBC 3.76 m/uL (3.80-5.40); RDW 16.1 % (11.5-15.5); WBC 5.5 k/uL (3.8-10.6)
[2019-02-14 11:05] LABS: African American GFR (CKD) >90 (>60 ml/min/1.73 sqM); Anion Gap 9 mmol/L; Blood Urea Nitrogen 9 mg/dL (7-17); Calcium 8.5 mg/dL (8.4-10.2); Carbon Dioxide 25 mmol/L (22-30); Chloride 107 mmol/L (98-107); Glucose 209 mg/dL (74-99); Sodium 141 mmol/L (137-145)
[2019-02-14 11:15] LABS: Prothrombin Time 10.4 sec (9.0-12.0)
--- NOTE | 2019-02-14 12:07 | P.PN ---
Subjective Progress Note Date: 02/14/19 Principal diagnosis: Acute Popliteal DVT off anticoagulation No acute complaints No signs of bleeding I contacted Primary Food Service Order Clerk Dr. Richard Mora to follow-up this week and o karol is to call her to make this appoinment Objective - Vital Signs Vital signs: Vital Signs Temp 97.4 F L 02/14/19 05:09 Pulse 65 02/14/19 08:00 Resp 16 02/14/19 05:09 BP 146/82 02/14/19 05:09 Pulse Ox 97 02/14/19 05:09 Intake & Output 02/13/19 02/14/19 02/14/19 18:59 06:59 18:59 Output Total 0 Balance 0 Output: Stool 0 Other: Voiding Method Bedside Commode # Voids 1 1 1 # Bowel Movements 1 1 - Exam Gen: Alert and orient Head: NCNT Neck: Supple Lungs: CTA bilat Abd: Soft, ND Heart RRR Ext: Edema - Labs CBC & Chem 7: 02/14/19 10:11 02/14/19 10:11 Labs: Abnormal Lab Results - Last 24 Hours (Table) 02/13/19 02/13/19 02/13/19 Range/Units 11:52 17:01 20:42 RBC (3.80-5.40) m/uL Hgb (11.4-16.0) gm/dL RDW (11.5-15.5) % Lymphocytes # (1.0-4.8) k/uL Glucose (74-99) mg/dL POC Glucose (mg/dL) 214 H 182 H 196 H (75-99) mg/dL 02/14/19 02/14/19 02/14/19 Range/Units 07:00 10:11 10:11 RBC 3.76 L (3.80-5.40) m/uL Hgb 10.9 L (11.4-16.0) gm/dL RDW 16.1 H (11.5-15.5) % Lymphocytes # 0.9 L (1.0-4.8) k/uL Glucose 209 H (74-99) mg/dL POC Glucose (mg/dL) 137 H (75-99) mg/dL Assessment and Plan Plan: Assessment and Recommendations: Hx: Of Multiple DVT on Warfarin as outpatient: - Recently stopped for GI Bleeding with duodenal ulcer - IVC placed at that time - December 2018 Now with increased acute DVT LE: -Acute Popliteal and chronic DVT noted - Would still recommend AC therapy, would continue Heparin IV no bolus and monitor 24-48 hours if no bleeding can discharge on lovenox bridge to coumadin or lovenox alone and continue close outpatient monitoring - If no Hypercoag work-up as outpatient would recommend for risks as if hypercoaguable state even with IVC anticoagualtion recommended PLan: Hold AC therapy until GI Clears - PLan to discharge and follow very closely with Dr. Mora as outpatient, rec hypercoag work-up and lovcenox daily 1.5mg/kg/day once risk of bleeding is decreased evidenced by ilcers healing Discussd with Dr. Alexis Patient fully aware of risks and benefits of AC therapy versus none with IVC Continue to recommend anticoagulation at discharge at minimum with prophylaxis, and Dr. Mora to take over AC therapy
[2019-02-14 12:20] LABS: Glucose,Whole Blood 169 mg/dL (75-99)
--- NOTE | 2019-02-14 15:30 | P.DS ---
Providers Date of admission: 02/11/19 17:20 Expected date of discharge: 02/14/19 Attending physician: Diane Alexis Consults: 02/11/19 19:57 Consult Physician Routine Consulting Provider: Oleg Catherine Consult Reason/Comments: dvt Do you want consulting provider notified?: Yes 02/11/19 19:58 Consult Physician Routine Consulting Provider: Yevgeniy Escobar Consult Reason/Comments: dvt h/o gi bleeding Do you want consulting provider notified?: Yes Primary care physician: [facility] Course: final diagnosis acute deep vein thrombosis of the left popliteal and calf veins with severe pain and swelling History of recent significant GI bleed from peptic ulcer disease and duodenal ulcers transferred to [facility] at that time Hypokalemia History of recent cardiac catheterization at [facility] showing a blocked stent on medical treatment History of acute recently of the right leg, status post IVC filter placement History of multiple DVT in the right leg History of coronary artery disease with multiple stents Diabetes mellitus type 2 History of gastroesophageal reflux disease Hypertension Hyperlipidemia History of myocardial infarction History of degenerative joint disease Full code Discharge disposition Patient will be discharged home in a stable condition with guarded prognosis and will receive home care follow-up. Patient is to follow-up with Dr. Elizabeth hematology/oncology to discuss anticoagulation therapy treatment. History of present illness This is a 73-year-old woman who was admitted with significant multiple complex medical issues including an acute DVT of the left leg. Patient patient does have a history of multiple DVTs in the right leg and due to her recent GI bleed her anticoagulation therapy was on hold except for aspirin. Patient is being closely followed with hematology/oncology Dr. Elizabeth in the outpatient setting. During the hospital course patient was being treated with subq heparin injections 3 times daily. Patient will go home with subQ lovenox and will follow up with Dr. Elizabeth for anticoagulation therapy in 1-2 weeks. Patient denies any shortness of breath, chest pain, or palpitations at this time. Patient denies any leg discomfort at this time and her gait is steady. On exam vital signs are stable. Blood pressure is 146/82, pulse is 65, respirations are 16, temp is 97.4F, oxygen saturation is 97% on room air. Cardio S1 and S2 are muffled. Respiratory system shows diminished breath sounds in the bases with no crackles or wheezing noted. Abdomen is soft and non-tender. Nervous system shows no focal deficits and gait is steady. Please refer to medication reconciliation sheet for a list of medications. Patient Condition at Discharge: Fair Plan - Discharge Summary New Discharge Prescriptions: New Enoxaparin [Lovenox] 120 mg SQ DAILY 30 Days syringe Continue INSULIN LISPRO (humaLOG) [humaLOG] See Protocol SQ AC-TID Cholecalciferol [Vitamin D3 (25 Mcg = 1000 Iu)] 1,000 unit PO DAILY Bimatoprost [Lumigan .01% Ophth Soln] 1 drop RIGHT EYE DAILY Folic Acid 1 mg PO DAILY Atorvastatin [Lipitor] 80 mg PO DAILY Budesonide/Formoterol Fumarate [Symbicort 80-4.5 Mcg Inhaler] 1 puff INHALATION RT-BID Aspirin 81 mg PO DAILY #30 chew Nitroglycerin Sl Tabs [Nitrostat] 0.4 mg SUBLINGUAL Q5M PRN #50 tab PRN Reason: Chest Pain Albuterol Inhaler [Ventolin Hfa Inhaler] 1 - 2 puff INHALATION RT-Q6H PRN #1 inhaler PRN Reason: Shortness Of Breath Sucralfate [Carafate] 1 gm PO AC-BID tab Pantoprazole [Protonix] 40 mg PO AC-BID tablet. Acetaminophen Tab [Tylenol] 650 mg PO Q6HR PRN tab PRN Reason: Fever And/ Or Pain Lisinopril [Zestril] 20 mg PO DAILY Metoprolol Tartrate [Lopressor] 12.5 mg PO BID Insulin Detemir (Levemir) [Levemir] 12 unit SQ HS Discharge Medication List Atorvastatin [Lipitor] 80 mg PO DAILY 12/08/18 [History] Bimatoprost [Lumigan .01% Ophth Soln] 1 drop RIGHT EYE DAILY 12/08/18 [History] Budesonide/Formoterol Fumarate [Symbicort 80-4.5 Mcg Inhaler] 1 puff INHALATION RT-BID 12/08/18 [History] Cholecalciferol [Vitamin D3 (25 Mcg = 1000 Iu)] 1,000 unit PO DAILY 12/08/18 [History] Folic Acid 1 mg PO DAILY 12/08/18 [History] INSULIN LISPRO (humaLOG) [humaLOG] See Protocol SQ AC-TID 12/08/18 [History] Albuterol Inhaler [Ventolin Hfa Inhaler] 1 - 2 puff INHALATION RT-Q6H PRN #1 inhaler 12/14/18 [Rx] Aspirin 81 mg PO DAILY #30 chew 12/14/18 [Rx] Nitroglycerin Sl Tabs [Nitrostat] 0.4 mg SUBLINGUAL Q5M PRN #50 tab 12/14/18 [Rx] Acetaminophen Tab [Tylenol] 650 mg PO Q6HR PRN tab 01/11/19 [Rx] Pantoprazole [Protonix] 40 mg PO AC-BID tablet. 01/11/19 [Rx] Sucralfate [Carafate] 1 gm PO AC-BID tab 01/11/19 [Rx] Insulin Detemir (Levemir) [Levemir] 12 unit SQ HS 02/11/19 [History] Lisinopril [Zestril] 20 mg PO DAILY 02/11/19 [History] Metoprolol Tartrate [Lopressor] 12.5 mg PO BID 02/11/19 [History] Enoxaparin [Lovenox] 120 mg SQ DAILY 30 Days syringe 02/14/19 [Rx] Follow up Appointment(s)/Referral(s): [facility] [NON-STAFF] - Mallory Wilder MD [Primary Care Provider] - 1-2 days Richard Elizabeth MD [REFERRING] - 02/22/19 2:45 pm Oleg Catherine MD [STAFF PHYSICIAN] - 02/17/19 1:30 pm Activity/Diet/Wound Care/Special Instructions: Activity limited until follow-up Patient is to follow up with Dr. Elizabeth in 1-2 weeks Patient is to follow up with Dr. Ramirez in 1-2 weeks continue current diet Discharge Disposition: HOME WITH HOME HEALTH SERVICES
== END 2019-02-14 16:07 | disposition home health service (06) | DRG 300 ==
LOC: EC 15:29 → 4MS4W 17:20
PROVIDERS: ADMIT Hospitalist; ATTEND Hospitalist
DX: I82.432 Acute embolism and thrombosis of left popliteal vein (principal); T82.598A Other mechanical complication of other cardiac and vascular devices and implants, initial encounter; I82.4Z2 Acute embolism and thrombosis of unspecified deep veins of left distal lower extremity; I82.501 Chronic embolism and thrombosis of unspecified deep veins of right lower extremity; K26.9 Duodenal ulcer, unspecified as acute or chronic, without hemorrhage or perforation; E11.9 Type 2 diabetes mellitus without complications; E78.5 Hyperlipidemia, unspecified; E87.6 Hypokalemia; I10 Essential (primary) hypertension; I25.10 Atherosclerotic heart disease of native coronary artery without angina pectoris; I25.2 Old myocardial infarction; K21.9 Gastro-esophageal reflux disease without esophagitis; M19.90 Unspecified osteoarthritis, unspecified site; R77.9 Abnormality of plasma protein, unspecified; Z79.02 Long term (current) use of antithrombotics/antiplatelets; Z79.4 Long term (current) use of insulin; Z79.51 Long term (current) use of inhaled steroids; Z79.82 Long term (current) use of aspirin; Z79.899 Other long term (current) drug therapy; Z95.828 Presence of other vascular implants and grafts; Z88.1 Allergy status to other antibiotic agents; Z88.2 Allergy status to sulfonamides; Z88.8 Allergy status to other drugs, medicaments and biological substances; Z98.49 Cataract extraction status, unspecified eye; Z96.1 Presence of intraocular lens
CPT/HCPCS: 36415; 80048; 80051; 80053; 81001; 84132; 85025; 85610; 85730; 94640; 96374; 99284

== ENCOUNTER → 2019-06-21 | Outpatient (CLI) | payer MEDICARE ==
[2019-06-21 19:57] LABS: Albumin 4.2 g/dL (3.80-4.90); Albumin/Globulin Ratio 2.1 (1.60-3.17); Anion Gap 14.7 mmol/L (4.00-12.00); Calcium 8.9 mg/dL (8.7-10.3); Carbon Dioxide 25.3 mmol/L (21.6-31.8); Chol/HDL Ratio 5.48; Non-African American GFR(CKD) 63.9 (60.0-200.0); Total Bilirubin 0.4 mg/dL (0.3-1.2); Total Protein 6.2 g/dL (6.2-8.2)
== END ==
LOC: LABWHC1 09:30
PROVIDERS: ATTEND Internal Medicine Interventional Cardiology
DX: E78.2 Mixed hyperlipidemia (principal)
CPT/HCPCS: 36415; 80053; 80061; 83721

== ENCOUNTER 2020-12-05 10:13 | Emergency (ER) | payer MEDICARE ==
[2020-12-05 10:30] VITALS: RESP 18; TEMP 97.7
--- NOTE | 2020-12-05 10:48 | ED ---
General Adult HPI - General Chief complaint: Extremity Injury, Lower Stated complaint: rt leg swelling/pain Time Seen by Provider: 12/05/20 10:35 Source: patient, family Mode of arrival: ambulatory Limitations: no limitations - History of Present Illness Initial comments: 75-year-old female with a past medical history of CAD, 5 DVTs in the past, hyperlipidemia, hypertension, currently on Lovenox presents to the emergency room for a chief complaint of right leg swelling. Patient reports she notices over the past couple days. States she did start walking more than normal over the past week but does not remember injuring it. Patient reports she has a history of DVTs and needs an ultrasound. Patient denies chest pain or shortness of breath.Patient has no other complaints at this time including shortness of breath, chest pain, abdominal pain, nausea or vomiting, headache, or visual changes. - Related Data Home Medications Medication Instructions Recorded Confirmed Atorvastatin [Lipitor] 80 mg PO HS 12/08/18 12/05/20 Cholecalciferol [Vitamin D3 (25 1,000 unit PO DAILY 12/08/18 12/05/20 Mcg = 1000 Iu)] INSULIN LISPRO (humaLOG) [humaLOG] See Protocol SQ AC-TID PRN 12/08/18 12/05/20 Metoprolol Tartrate [Lopressor] 25 mg PO BID 02/11/19 12/05/20 lisinopriL [Zestril] 20 mg PO DAILY 02/11/19 12/05/20 Allopurinol [Zyloprim] 100 mg PO HS 12/05/20 12/05/20 Cyanocobalamin (Vitamin B-12) 1,000 mcg PO DAILY 12/05/20 12/05/20 [Vitamin B-12] INSULIN LISPRO (humaLOG) [humaLOG] 25 units SQ AC-TID 12/05/20 12/05/20 Insulin Degludec [Tresiba 100 units SQ HS 12/05/20 12/05/20 Flextouch U-200] Latanoprost [Xalatan 0.005%] 1 drop BOTH EYES HS 12/05/20 12/05/20 Omeprazole 20 mg PO DAILY 12/05/20 12/05/20 Previous Rx's Medication Instructions Recorded Aspirin 81 mg PO DAILY #30 chew 12/14/18 Nitroglycerin Sl Tabs [Nitrostat] 0.4 mg SUBLINGUAL Q5M PRN #50 tab 12/14/18 Enoxaparin [Lovenox] 120 mg SQ DAILY 30 Days syringe 02/14/19 Allergies Allergy/AdvReac Type Severity Reaction Status Date / Time phenytoin [From Dilantin] Allergy Rash/Hives Verified 12/05/20 11:35 sulfamethoxazole Allergy Rash/Hives Verified 12/05/20 11:35 [From Bactrim] trimethoprim [From Bactrim] Allergy Rash/Hives Verified 12/05/20 11:35 Review of Systems ROS Statement: Those systems with pertinent positive or pertinent negative responses have been documented in the HPI. ROS Other: All systems not noted in ROS Statement are negative. Past Medical History Past Medical History: Coronary Artery Disease (CAD), Diabetes Mellitus, Deep Vein Thrombosis (DVT), GERD/Reflux, GI Bleed, Hyperlipidemia, Hypertension, Myocardial Infarction ([place]) Additional Past Medical History / Comment(s): 5 DVT's RLE Last Myocardial Infarction Date:: 12/08/18 History of Any Multi-Drug Resistant Organisms: None Reported Past Surgical History: Heart Catheterization With Stent Additional Past Surgical History / Comment(s): cataract surgery, left shoulder surgery, carpal tunnel left wrist, heart stents 3 in july 2017, 19 february 2017, 17 Nov 2018 Past Anesthesia/Blood Transfusion Reactions: No Reported Reaction Date of Last Stent Placement:: 12/08/18 Past Psychological History: No Psychological Hx Reported Smoking Status: Never smoker Past Alcohol Use History: Unable to Obtain Past Drug Use History: Unable to Obtain General Exam Limitations: no limitations General appearance: alert, in no apparent distress Head exam: Present: atraumatic, normocephalic, normal inspection Eye exam: Present: normal appearance, PERRL, EOMI. Absent: scleral icterus, conjunctival injection, periorbital swelling ENT exam: Present: normal exam Neck exam: Present: normal inspection, full ROM. Absent: tenderness, meningismus, lymphadenopathy Respiratory exam: Present: normal lung sounds bilaterally. Absent: respiratory distress, wheezes, rales, rhonchi, stridor Cardiovascular Exam: Present: regular rate, normal rhythm, normal heart sounds. Absent: systolic murmur, diastolic murmur, rubs, gallop, clicks GI/Abdominal exam: Present: soft, normal bowel sounds. Absent: distended, tenderness, guarding, rebound, rigid Extremities exam: Present: normal capillary refill (cap refill < 2 seconds, DP pulse 2+), calf tenderness (minimal edema and tenderness to RLE, negative marina sign), other (sensation intact RLE, normal color of leg no cerulea dolens) Course Vital Signs 12/05/20 10:27 Temperature 97.7 F Pulse Rate 61 Respiratory 18 Rate Blood Pressure 172/66 O2 Sat by Pulse 97 Oximetry Medical Decision Making - Medical Decision Making Ultrasound shows positive for extensive chronic appearing DVT in the right lower extremity. Vessels are partially compressible with thready flow. Patient is already on Lovenox. She reports she has a filter which I presume is a Karey filter. At this point patient can be discharged home to follow-up with primary care. I also referred her back to her vascular surgeon Dr. Catherine. If she has any worsening symptoms she will return here to the emergency room. I discussed this case with attending Dr. bailey who agrees with this assessment and treatment plan. Disposition Clinical Impression: Chronic deep vein thrombosis (DVT) Disposition: HOME SELF-CARE Condition: Good Instructions (If sedation given, give patient instructions): Deep Vein Thrombosis (ED) Additional Instructions: Please continue to take your Lovenox. Please follow-up with your doctor. Follow-up with vascular surgery as well. Return to the emergency room for any worsening symptoms. Is patient prescribed a controlled substance at d/c from ED?: No Referrals: Mallory Wilder MD [Primary Care Provider] - 1-2 days Oleg Catherine MD [Family Provider] - 1-2 days Time of Disposition: 12:04
--- NOTE | 2020-12-05 11:42 | US ---
EXAMINATION TYPE: US venous doppler duplex LE RT DATE OF EXAM: 12/05/2020 11:24 AM COMPARISON: US dated 01/07/2019 CLINICAL HISTORY: 75-year-old female history of DVT on Lovenox. Patient has IVC filter. SIDE PERFORMED: TECHNIQUE: The lower extremity deep venous system is examined utilizing real time linear array sonog anthony with graded compression, doppler sonography and color-flow sonography. VESSELS IMAGED: Common Femoral Vein Deep Femoral Vein Greater Saphenous Vein * Femoral Vein Popliteal Vein Small Saphenous Vein * Proximal Calf Veins (* superficial vessels) Right Leg: POSITIVE for extensive chronic appearing DVT. There is echoes seen within all vessels wit h partial compression and thready flow noted from groin to proximal calf veins. IMPRESSION: Exam positive for extensive chronic appearing DVT throughout the imaged right lower extremity. Vessel s are partially compressible with thready flow.
[2020-12-05 12:15] VITALS: BP 160/78; PULSE 70
== END 2020-12-05 12:14 | disposition home or self-care (01) ==
LOC: EC 10:13
DX: I82.501 Chronic embolism and thrombosis of unspecified deep veins of right lower extremity (principal); I25.10 Atherosclerotic heart disease of native coronary artery without angina pectoris; E78.5 Hyperlipidemia, unspecified; I10 Essential (primary) hypertension; K21.9 Gastro-esophageal reflux disease without esophagitis; E11.9 Type 2 diabetes mellitus without complications; I25.2 Old myocardial infarction; Z79.01 Long term (current) use of anticoagulants; Z79.4 Long term (current) use of insulin; Z79.899 Other long term (current) drug therapy; Z79.82 Long term (current) use of aspirin
CPT/HCPCS: 99283

== ENCOUNTER → 2021-07-26 | Outpatient (CLI) | payer MEDICARE ==
[2021-07-27 00:28] LABS: African American GFR (CKD) 25.8 (60.0-200.0); Albumin 4.5 g/dL (3.8-4.9); Albumin/Globulin Ratio 1.44 (1.60-3.17); Anion Gap 22.2 mmol/L (10.00-18.00); BUN/Creat Ratio 27.89 Ratio (12.00-20.00); Blood Urea Nitrogen 59.4 mg/dL (9.0-27.0); Calcium 10.3 mg/dL (8.7-10.3); Carbon Dioxide 16.9 mmol/L (20.0-27.5); Globulin 3.1 g/dL (1.6-3.3); HDL Cholesterol 36.3 mg/dL (40.00-60.00); Non-African American GFR(CKD) 22.2 (60.0-200.0); Potassium 5.8 mmol/L (3.5-5.5); Total Bilirubin 0.3 mg/dL (0.30-1.20); Total Protein 7.6 g/dL (6.2-8.2)
[2021-07-27 00:58] LABS: Chol/HDL Ratio 6.45 Ratio
== END | disposition home or self-care (01) ==
LOC: LABWHC1 11:17
PROVIDERS: ATTEND Family Medicine
DX: E78.2 Mixed hyperlipidemia (principal); R06.00 Dyspnea, unspecified
CPT/HCPCS: 36415; 80053; 80061; 83721; 83880

== ENCOUNTER 2023-09-20 23:36 | Inpatient (IN) | payer MEDICARE ==
[2023-09-21] MEDS: NITROGLYCERIN OINT 1 INCH/GM PACKET TOPICAL STA (00:03)
[2023-09-21 00:16] LABS: Basophils % (A) 0 %; Eosinophils # (A) 0.1 k/uL (0-0.7); Eosinophils % (A) 1 %; HCT 38.5 % (34.0-46.0); Lymphocytes # (A) 0.3 k/uL (1.0-4.8); Lymphocytes % (A) 4 %; MCH 32.3 pg (25.0-35.0); MCHC 33.7 g/dL (31.0-37.0); Mean Platelet Volume 9.1; Monocytes # (A) 0.7 k/uL (0-1.0); Monocytes % (A) 8 %; Neutrophils # (A) 6.9 k/uL (1.3-7.7); Neutrophils % (A) 85 %; Platelet Count 177 k/uL (150-450); RBC 4.01 m/uL (3.80-5.40); RDW 14.4 % (11.5-15.5); WBC 8.1 k/uL (3.8-10.6)
[2023-09-21] MEDS: ACETAMINOPHEN TAB 500 MG TAB PO STA (00:17)
[2023-09-21] MEDS: MORPHINE SULFATE 4 MG/ML SYRINGE IVP STA (00:19)
--- NOTE | 2023-09-21 00:21 | XR ---
EXAM: XR Chest, 2 Views CLINICAL HISTORY: ITS.REASON XR Reason: Chest Pain TECHNIQUE: Frontal and lateral views of the chest. COMPARISON: XR Chest dated 12/28/18 FINDINGS: Lungs: Low lung volumes. No focal consolidation. Pleural space: Unremarkable. No pneumothorax. Heart: Unremarkable. No cardiomegaly. Mediastinum: Unremarkable. Normal mediastinal contour. Bones/joints: Unremarkable. No acute fracture. Upper abdomen: Elevated right hemidiaphragm, more than on the prior study. IMPRESSION: Low lung volumes. No focal consolidation.
[2023-09-21 00:22] LABS: Partial Thromboplastin Time 27.9 sec (22.0-30.0); Prothrombin Time 10.8 sec (10.0-12.5)
[2023-09-21 00:23] LABS: ALT 22 U/L (4-34); AST 31 U/L (14-36); African American GFR (CKD) 44 (>60 ml/min/1.73 sqM); Albumin 4.5 g/dL (3.5-5.0); Alkaline Phosphatase 100 U/L (38-126); Anion Gap 9 mmol/L; Blood Urea Nitrogen 35 mg/dL (7-17); Calcium 9.4 mg/dL (8.4-10.2); Carbon Dioxide 22 mmol/L (22-30); Chloride 106 mmol/L (98-107); Glucose 195 mg/dL (74-99); Lipase 199 U/L (23-300); Magnesium 1.5 mg/dL (1.6-2.3); Non-African American GFR(CKD) 39 (>60 ml/min/1.73 sqM); Potassium 5.7 mmol/L (3.5-5.1); Sodium 137 mmol/L (137-145); Total Bilirubin 0.8 mg/dL (0.2-1.3); Total Protein 7.6 g/dL (6.3-8.2)
[2023-09-21 00:32] LABS: NT-Pro-B-Type Natriuretic Pept 872 pg/mL
--- NOTE | 2023-09-21 01:32 | ED ---
Chest Pain HPI - General Chief Complaint: Chest Pain Stated Complaint: chest pain Time Seen by Provider: 09/20/23 23:40 Source: patient, EMS Mode of arrival: EMS - History of Present Illness Initial Comments: 78-year-old female with past medical history of DVT on Eliquis, hypertension, coronary disease with multiple stents who presents emergency department reporting chest pain. Pain started this afternoon around 1 PM. She describes it as a pressure sensation with associated nausea. Denies shortness of breath. EMS provided the patient with 4 chewable aspirins and 1 nitro. She states that alleviated her pain to a 5. Patient denies any fevers, chills or cough. She does have a history of coronary disease with several stents in her heart. Last stent was placed in 2019. 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 Judd later this month and is scheduled to have a heart cath then. No other alleviating, precipitating or modifying factors - Related Data Home Medications Medication Instructions Recorded Confirmed Atorvastatin [Lipitor] 80 mg PO HS 12/08/18 09/21/23 INSULIN LISPRO (humaLOG) [humaLOG] See Protocol SQ AC-TID PRN 12/08/18 09/21/23 Cyanocobalamin (Vitamin B-12) 1,000 mcg PO DAILY 12/05/20 09/21/23 [Vitamin B-12] Latanoprost [Xalatan 0.005%] 1 drop BOTH EYES HS 12/05/20 09/21/23 Omeprazole 20 mg PO DAILY 12/05/20 09/21/23 allopurinoL [Zyloprim] 100 mg PO HS 12/05/20 09/21/23 Apixaban [Eliquis] 5 mg PO BID 09/21/23 09/21/23 Aspirin 81 mg PO W/SUPPER 09/21/23 09/21/23 Cholecalciferol [Vitamin D3 (125 125 mcg PO DAILY 09/21/23 09/21/23 Mcg = 5000 Iu)] Isosorbide Mononitrate ER [Imdur] 60 mg PO W/SUPPER 09/21/23 09/21/23 Magnesium Oxide [Magox 400] 400 mg PO TID 09/21/23 09/21/23 Ranolazine [Ranexa] 500 mg PO BID 09/21/23 09/21/23 Previous Rx's Medication Instructions Recorded Nitroglycerin Sl Tabs [Nitrostat] 0.4 mg SUBLINGUAL Q5M PRN #50 tab 12/14/18 Amoxic-Pot Clav 875-125Mg 1 each PO Q12HR 5 Days #10 tab 09/25/23 [Augmentin 875-125] Clopidogrel [Plavix] 75 mg PO DAILY #30 tab 09/25/23 Insulin Degludec [Tresiba 10 units SQ HS #8 gm 09/25/23 Flextouch U-200 Pen] Metoprolol Tartrate [Lopressor] 12.5 mg PO BID #60 tab 09/25/23 guaiFENesin-DM 100-10MG/5ML 10 ml PO Q6HR PRN #80 ml 09/25/23 [Robitussin DM] Allergies Allergy/AdvReac Type Severity Reaction Status Date / Time phenytoin [From Dilantin] Allergy Rash/Hives Verified 09/21/23 08:22 sulfamethoxazole Allergy Rash/Hives Verified 09/21/23 08:22 [From Bactrim] trimethoprim [From Bactrim] Allergy Rash/Hives Verified 09/21/23 08:22 Review of Systems ROS Statement: Those systems with pertinent positive or pertinent negative responses have been documented in the HPI. ROS Other: All systems not noted in ROS Statement are negative. Past Medical History Past Medical History: Coronary Artery Disease (CAD), Diabetes Mellitus, Deep Vein Thrombosis (DVT), GERD/Reflux, GI Bleed, Hyperlipidemia, Hypertension, Myocardial Infarction ([place]) Additional Past Medical History / Comment(s): 5 DVT's RLE Last Myocardial Infarction Date:: 12/08/18 History of Any Multi-Drug Resistant Organisms: None Reported Past Surgical History: Heart Catheterization With Stent Additional Past Surgical History / Comment(s): cataract surgery, left shoulder surgery, carpal tunnel left wrist, heart stents 3 in july 2017, 19 february 2017, 17 Nov 2018 Past Anesthesia/Blood Transfusion Reactions: No Reported Reaction Date of Last Stent Placement:: 12/08/18 Past Psychological History: No Psychological Hx Reported Smoking Status: Never smoker Past Alcohol Use History: Unable to Obtain Past Drug Use History: Unable to Obtain General Exam General appearance: alert, in no apparent distress Head exam: Present: atraumatic, normocephalic, normal inspection Eye exam: Present: normal appearance, PERRL, EOMI. Absent: scleral icterus, conjunctival injection, periorbital swelling ENT exam: Present: normal exam, mucous membranes moist Neck exam: Present: normal inspection. Absent: tenderness, meningismus, lymphadenopathy Respiratory exam: Present: normal lung sounds bilaterally. Absent: respiratory distress, wheezes, rales, rhonchi, stridor Cardiovascular Exam: Present: regular rate, normal rhythm, normal heart sounds. Absent: systolic murmur, diastolic murmur, rubs, gallop, clicks GI/Abdominal exam: Present: soft, normal bowel sounds. Absent: distended, tenderness, guarding, rebound, rigid Extremities exam: Present: normal inspection, full ROM, normal capillary refill. Absent: tenderness, pedal edema, joint swelling, calf tenderness Back exam: Present: normal inspection Neurological exam: Present: alert, oriented X3, CN II-XII intact Psychiatric exam: Present: normal affect, normal mood Skin exam: Present: warm, dry, intact, normal color. Absent: rash Course Vital Signs 09/20/23 09/21/23 09/21/23 23:37 00:23 01:00 Temperature 97.8 F Pulse Rate 94 86 75 Respiratory 18 14 21 Rate Blood Pressure 190/77 130/65 108/54 O2 Sat by Pulse 95 95 93 L Oximetry 09/21/23 09/21/23 09/21/23 01:30 02:00 02:30 Temperature Pulse Rate 76 75 73 Respiratory 22 19 18 Rate Blood Pressure 110/51 124/45 148/46 O2 Sat by Pulse 93 L 93 L 93 L Oximetry 09/21/23 09/21/23 09/21/23 03:30 04:30 05:00 Temperature Pulse Rate 75 70 70 Respiratory 17 19 18 Rate Blood Pressure 125/48 134/62 149/51 O2 Sat by Pulse 92 L 92 L 92 L Oximetry 09/21/23 09/21/23 09/21/23 06:29 07:42 09:18 Temperature 97.6 F Pulse Rate 73 74 75 Respiratory 19 18 16 Rate Blood Pressure 145/62 163/56 168/65 O2 Sat by Pulse 95 94 L 93 L Oximetry 09/21/23 09/21/23 09/21/23 11:09 11:33 12:55 Temperature 98.7 F Pulse Rate 70 79 Respiratory 16 18 Rate Blood Pressure 155/83 165/82 O2 Sat by Pulse 94 L 94 L 93 L Oximetry 09/21/23 09/21/23 09/21/23 14:02 15:48 17:04 Temperature Pulse Rate 81 77 72 Respiratory 18 18 16 Rate Blood Pressure 159/80 142/67 124/60 O2 Sat by Pulse 93 L 91 L 92 L Oximetry 09/21/23 09/21/23 09/21/23 18:12 19:35 22:47 Temperature 99.2 F Pulse Rate 72 77 80 Respiratory 16 18 19 Rate Blood Pressure 123/64 142/73 147/72 O2 Sat by Pulse 94 L 95 95 Oximetry 09/22/23 09/22/23 09/22/23 00:01 03:12 05:28 Temperature 99.4 F Pulse Rate 64 72 73 Respiratory 16 21 19 Rate Blood Pressure 135/65 128/66 O2 Sat by Pulse 95 95 95 Oximetry 09/22/23 07:58 Temperature 98.3 F Pulse Rate 65 Respiratory 16 Rate Blood Pressure 125/68 O2 Sat by Pulse 96 Oximetry Chest Pain MDM - MDM Was pt. sent in by a medical professional or institution (, PA, AUTO SLIP COVER INSTALLER, urgent care, hospital, or usp...) When possible be specific @ -No Did you speak to anyone other than the patient for history (EMS, parent, family, police, friend...)? What history was obtained from this source @ -EMS Did you review nursing and triage notes (agree or disagree)? Why? @ -I reviewed and agree with nursing and triage notes Were old charts reviewed (outside hosp., previous admission, EMS record, old EKG, old radiological studies, urgent care reports/EKG's, usp records)? Report findings @ -No old charts were reviewed Differential Diagnosis (chest pain, altered mental status, abdominal pain women, abdominal pain men, vaginal bleeding, weakness, fever, dyspnea, syncope, headache, dizziness, GI bleed, back pain, seizure, CVA, palpatations, mental health, musculoskeletal)? @ -Differential Chest Pain: Stable Angina, Unstable Angina, STEMI, NSTEMI Aortic Dissection, Pneumothorax, Musculoskeletal, Esophageal Spasm GERD, Cholecystitis, Pancreatitis, Zoster, this is not meant to be an all-inclusive list. EKG interpreted by me (3pts min.). @ -Yes and demonstrates sinus rhythm with a rate of 93. IA interval 172. QRS 126. QTc of 418. Right bundle branch block. Left anterior fascicular block. ST depression V4 through V6 as well as 1 and aVL. X-rays interpreted by me (1pt min.). @Yes and demonstrates no acute process CT interpreted by me (1pt min.). @ -None done U/S interpreted by me (1pt. min.). @ -None done What testing was considered but not performed or refused? (CT, X-rays, U/S, labs)? Why? @ -None What meds were considered but not given or refused? Why? @ -None Did you discuss the management of the patient with other professionals (professionals i.e. DrDawit, PA, [employer] SL[employer] COVER INSTALLER, lab, RT, psych nurse, social science manager, steam fitter supervisor, teacher, security public safety officer, case packer)? Give summary @ -Spoke with Masha from [facility] Was smoking cessation discussed for >3mins.? @ -No Was critical care preformed (if so, how long)? @ -Yes, 40 minutes for NSTEMI with heparinization Were there social determinants of health that impacted care today? How? (Home lessness, low income, unemployed, alcoholism, drug addiction, transportation, low edu. Level, literacy, decrease access to med. care, half-way, rehab)? @ -No Was there de-escalation of care discussed even if they declined (Discuss DNR or withdrawal of care, Hospice)? DNR status @ -No What co-morbidities impacted this encounter? (DM, HTN, Smoking, COPD, CAD, Cancer, CVA, ARF, Chemo, Hep., AIDS, mental health diagnosis, sleep apnea, morbid obesity)? @ -Diabetes mellitus, hypertension, hyperlipidemia Was patient admitted / discharged? Hospital course, mention meds given and route, prescriptions, significant lab abnormalities, going to OR and other pertinent info. @ -Upon arrival patient was placed into trauma 4. Thorough history and physical exam was performed. She is with the continuous pulse ox and cardiac monitoring. Twelve-lead EKG was obtained. Laboratory studies are conducted. Troponin is elevated. Patient was given aspirin, Nitropaste and heparinized. Patient will be admitted to [facility] with cardiology to consult Undiagnosed new problem with uncertain prognosis? @ -Yes Drug Therapy requiring intensive monitoring for toxicity (Heparin, Nitro, Insulin, Cardizem)? @ -No Were any procedures done? @ -No Diagnosis/symptom? @ -Acute chest pain, NSTEMI Acute, or Chronic, or Acute on Chronic? @ -Acute Uncomplicated (without systemic symptoms) or Complicated (systemic symptoms)? @ -Complicated Side effects of treatment? @ -No Exacerbation, Progression, or Severe Exacerbation? @ -No Poses a threat to life or bodily function? How? (Chest pain, [place], [place], pneumonia, PE, COPD, DKA, ARF, appy, cholecystitis, CVA, Diverticulitis, Homicidal, Suicidal, threat to staff... and all critical care pts) @ -Yes as patient is having an NSTEMI Disposition Clinical Impression: Chest pain, NSTEMI (non-ST elevated myocardial infarction) Disposition: ADMITTED IP TO THIS [facility] Condition: Serious Is patient prescribed a controlled substance at d/c from ED?: No Time of Disposition: 01:36 Decision to Admit Reason: Admit from EC Decision Date: 09/21/23 Decision Time: 01:36
[2023-09-21] MEDS ORDERED: NALOXONE 0.4 MG/ML 1 ML VIAL IV PRN (01:36)
[2023-09-21] MEDS: HEPARIN SOD,PORK IN 0.45% NACL 25,000 UNIT in 0.45% NACL 1 250ML.BAG IV SCH (01:57)
[2023-09-21] MEDS: MORPHINE SULFATE 4 MG/ML SYRINGE IV PRN (06:34)
[2023-09-21] MEDS ORDERED: DEXTROSE 50% SYRINGE 50 ML IVP PRN ×2 (08:02)
[2023-09-21] MEDS ORDERED: NITROGLYCERIN SL TABS 0.4 MG TAB SUBLINGUAL PRN ×2 (09:03→14:21)
[2023-09-21] MEDS ORDERED: Magnesium Replacement Protocol 1 EACH MISC MISCELLANE PRN (09:06)
--- NOTE | 2023-09-21 09:06 | P.HPIM ---
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 Patient presents because of chest pain which she has been having on and off since last [facility] however since yesterday the chest pain was severe 10/10, in the middle of the chest nonradiating associated with some dyspnea and little cough. Patient received morphine in the emergency room and her chest pain now down to 1/10 Also she vomited once in the ambulance but she has no abdominal pain and her bowel movement feels fine Patient walks little bit at baseline because of her neuropathy. She denies urinary symptoms, no dysuria or urgency No headache dizziness weakness or numbness Patient says she was taking her Eliquis at home to last night when she got sick and came to emergency room Patient denies smoking or alcohol or illicit drugs. Patient is hemodynamically stable increased oxygen saturating 94% on 2 L oxygen via nasal cannula She has unremarkable CBC, INR 1.0, creatinine slightly up 1.3, unknown baseline but she has reading from 2021 as 2.1. Magnesium low 1.5 Troponin is elevated 0.06 Lipase is negative at 199 EKG showing sinus rhythm at 70/min, depression on V2-V6 but this is also seen in old EKG Chest x-ray is negative for acute process Review of Systems Review of systems CONSTITUTIONAL: No fever, no malaise, no fatigue. HEENT: No recent visual problems or hearing problems. Denied any sore throat. CARDIOVASCULAR: No orthopnea, PND, no palpitations, no syncope. PULMONARY: No shortness of breath, no cough, no hemoptysis. GASTROINTESTINAL: No diarrhea, no nausea, no vomiting, no abdominal pain. Normoactive bowel sounds. NEUROLOGICAL: No headaches, no weakness, no numbness. HEMATOLOGICAL: Denies any bleeding or petechiae. GENITOURINARY: Denies any burning micturition, frequency, or urgency. MUSCULOSKELETAL/RHEUMATOLOGICAL: Denies any joint pain, swelling, or any muscle pain. ENDOCRINE: Denies any polyuria or polydipsia. Past Medical History Past Medical History: Coronary Artery Disease (CAD), Diabetes Mellitus, Deep Vein Thrombosis (DVT), GERD/Reflux, GI Bleed, Hyperlipidemia, Hypertension, Myocardial Infarction (HI) Additional Past Medical History / Comment(s): 5 DVT's RLE Last Myocardial Infarction Date:: 12/08/18 History of Any Multi-Drug Resistant Organisms: None Reported Past Surgical History: Heart Catheterization With Stent Additional Past Surgical History / Comment(s): cataract surgery, left shoulder surgery, carpal tunnel left wrist, heart stents 3 in july 2017, 19 february 2017, 17 Nov 2018 Past Anesthesia/Blood Transfusion Reactions: No Reported Reaction Date of Last Stent Placement:: 12/08/18 Past Psychological History: No Psychological Hx Reported Smoking Status: Never smoker Past Alcohol Use History: Unable to Obtain Past Drug Use History: Unable to Obtain Medications and Allergies Home Medications Medication Instructions Recorded Confirmed Type Atorvastatin [Lipitor] 80 mg PO HS 12/08/18 09/21/23 History INSULIN LISPRO (humaLOG) [humaLOG] See Protocol SQ AC-TID PRN 12/08/18 09/21/23 History Nitroglycerin Sl Tabs [Nitrostat] 0.4 mg SUBLINGUAL Q5M PRN #50 tab 12/14/18 09/21/23 Rx Metoprolol Tartrate [Lopressor] 25 mg PO BID 02/11/19 09/21/23 History Cyanocobalamin (Vitamin B-12) 1,000 mcg PO DAILY 12/05/20 09/21/23 History [Vitamin B-12] INSULIN LISPRO (humaLOG) [humaLOG] 25 units SQ AC-TID 12/05/20 09/21/23 History Insulin Degludec [Tresiba 104 units SQ HS 12/05/20 09/21/23 History Flextouch U-200] Latanoprost [Xalatan 0.005%] 1 drop BOTH EYES HS 12/05/20 09/21/23 History Omeprazole 20 mg PO DAILY 12/05/20 09/21/23 History allopurinoL [Zyloprim] 100 mg PO HS 12/05/20 09/21/23 History Apixaban [Eliquis] 5 mg PO BID 09/21/23 09/21/23 History Aspirin 81 mg PO W/SUPPER 09/21/23 09/21/23 History Cholecalciferol [Vitamin D3 (125 125 mcg PO DAILY 09/21/23 09/21/23 History Mcg = 5000 Iu)] Furosemide [Lasix] 20 mg PO DAILY PRN 09/21/23 09/21/23 History Isosorbide Mononitrate ER [Imdur] 60 mg PO W/SUPPER 09/21/23 09/21/23 History Magnesium Oxide [Magox 400] 400 mg PO TID 09/21/23 09/21/23 History Ranolazine [Ranexa] 500 mg PO BID 09/21/23 09/21/23 History lisinopriL [Zestril] 10 mg PO DAILY 09/21/23 09/21/23 History Allergies Allergy/AdvReac Type Severity Reaction Status Date / Time phenytoin [From Dilantin] Allergy Rash/Hives Verified 09/21/23 08:22 sulfamethoxazole Allergy Rash/Hives Verified 09/21/23 08:22 [From Bactrim] trimethoprim [From Bactrim] Allergy Rash/Hives Verified 09/21/23 08:22 Physical Exam Vitals: Vital Signs Temp Pulse Resp BP Pulse Ox 09/21/23 07:42 74 18 163/56 94 L 09/21/23 06:29 97.6 F 73 19 145/62 95 09/21/23 05:00 70 18 149/51 92 L 09/21/23 04:30 70 19 134/62 92 L 09/21/23 03:30 75 17 125/48 92 L 09/21/23 02:30 73 18 148/46 93 L 09/21/23 02:00 75 19 124/45 93 L 09/21/23 01:30 76 22 110/51 93 L 09/21/23 01:00 75 21 108/54 93 L 09/21/23 00:23 86 14 130/65 95 09/20/23 23:37 97.8 F 94 18 190/77 95 Intake and Output 09/20/23 09/21/23 09/21/23 22:59 06:59 14:59 Other: Weight 98.566 kg -GENERAL: The patient is alert and oriented x3, not in any acute distress. obese. HEENT: Pupils are round and equally reacting to light. EOMI. No scleral icterus. No conjunctival pallor. Normocephalic, atraumatic. No pharyngeal erythema. No thyromegaly. CARDIOVASCULAR: S1 and S2 present. No murmurs, rubs, or gallops. PULMONARY: Chest is clear to auscultation, no wheezing , no crackles. ABDOMEN: Soft, nontender, nondistended, normoactive bowel sounds. No palpable organomegaly. MUSCULOSKELETAL: No joint swelling or deformity. EXTREMITIES: No cyanosis, clubbing, or pedal edema. NEUROLOGICAL: Gross neurological examination did not reveal any focal deficits. SKIN: No rashes. no petechiae. Results CBC & Chem 7: 09/20/23 23:51 09/20/23 23:51 Labs: Abnormal Lab Results - Last 24 Hours (Table) 09/20/23 09/20/23 09/20/23 Range/Units 23:51 23:51 23:51 Lymphocytes # 0.3 L (1.0-4.8) k/uL Potassium 5.7 H (3.5-5.1) mmol/L BUN 35 H (7-17) mg/dL Creatinine 1.33 H (0.52-1.04) mg/dL Glucose 195 H (74-99) mg/dL Magnesium 1.5 L (1.6-2.3) mg/dL Troponin I 0.064 H* (0.000-0.034) ng/mL Assessment and Plan Assessment: Chest pain with elevated troponin suspicious for non-STEMI in view of her history of coronary artery disease Mild acute kidney injury on chronic kidney disease stage II-III with mild hyperkalemia Diabetes mellitus Hyperlipidemia Hypertension History of GERD Obesity with BMI 36.2 on admission Plan: Continue with heparin drip Pain management Continue with aspirin 81 mg which is a home medication. Continue with Lipitor Cardiology consult Labs and medication were reviewed.. Continue same treatment. Continue with symptomatic treatment. Resume home medication. Monitor labs and vitals. DVT and GI prophylaxis. Further recommendations as per clinical course of the patient DVT prophylaxis: heparin GI Prophylaxis: Pepcid PT/OT: Pending Prognosis is guarded
[2023-09-21] MEDS: METOPROLOL TARTRATE 25 MG TAB PO SCH (09:57)
[2023-09-21 11:48] LABS: Glucose,Whole Blood 130 mg/dL (70-110)
[2023-09-21] MEDS: INSULIN ASPART (NovoLOG) 100 UNIT/ML VIAL SQ SCH ×2 (12:01→12:33)
[2023-09-21 12:27] LABS: African American GFR (CKD) 39 (>60 ml/min/1.73 sqM); Anion Gap 9 mmol/L; Blood Urea Nitrogen 37 mg/dL (7-17); Calcium 9.5 mg/dL (8.4-10.2); Carbon Dioxide 22 mmol/L (22-30); Chloride 106 mmol/L (98-107); Glucose 149 mg/dL (74-99); Non-African American GFR(CKD) 34 (>60 ml/min/1.73 sqM); Potassium 5.6 mmol/L (3.5-5.1); Sodium 137 mmol/L (137-145)
[2023-09-21] MEDS ORDERED: INSULIN ASPART (NovoLOG) 100 UNIT/ML VIAL SQ SCH (12:30)
[2023-09-21] MEDS: HEPARIN SODIUM 1,000 UN/ML (10ML VL) IV PRN (12:35)
[2023-09-21] MEDS ORDERED: ALPRAZolam 0.5 MG TAB PO PRN (14:21)
--- NOTE | 2023-09-21 14:35 | P.CRDCN ---
History of Present Illness Consult date: 09/21/23 Reason for Consult (text): Acute chest pain, non-ST elevated CA History of present illness: History of present illness: This is a 78-year-old female patient of Dr. Judd with past medical history of diabetes, hypertension, hyperlipidemia, obesity, DVT in the right lower extremity, coronary artery disease with stenting and history of inferior ST elevated myocardial infarction in 2019. We have been asked to evaluate the patient for acute chest pain and non-ST elevated CA. Patient is tentatively scheduled for cardiac catheterization on 10/11. Patient states that she has midsternal chest pain on and off for the past few months and seems to be worsening. She denies any radiation of the pain. She did have some nausea today and headache. Patient seen today in the emergency center waiting for bed on the observation unit. She has been started on heparin drip and home cardiac medications. EKG sinus rhythm with right bundle branch block Chest x-ray: Low lung volumes. No focal consolidation. CBC within normal limits. INR 1. Sodium 137, potassium 5.6, chloride 106, CO2 22, BUN 37 creatinine 1.49. Glucose 149. Troponins 0.064 and 3.16. Magnesium 1.5. Liver function test are normal. proBNP 872. Lipase 199. Home cardiac medications: Eliquis 5 mg twice daily, aspirin 81 mg daily, atorvastatin 80 mg at bedtime, Lasix 20 mg daily as needed, Imdur 60 mg with supper, lisinopril 10 mg daily, magnesium oxide 400 mg 3 times daily, Lopressor 25 mg twice daily, Nitrostat as needed, Ranexa 500 mg twice daily Cardiac catheterization performed 12/08/2018 revealed acutely occluded right coronary artery and long stented segment, calcified coronary arteries, mild disease in the LAD and left circumflex. Subsequently, patient underwent PCI with recanalization a long stented segment of the right coronary artery. Echocardiogram performed 12/09/2018 revealed EF 55 to 60%, mild concentric left hypertrophy, mild mitral digitation, mild tricuspid regurgitation. Review Of Systems: At the time of my exam: CONSTITUTIONAL: Denies fever or chills. HEENT: Denies blurred vision, vision changes, or eye pain. Denies hemoptysis CARDIOVASCULAR: Denies chest pain. Denies orthopnea. Denies PND. Denies palpitations RESPIRATORY: Denies shortness of breath. GASTROINTESTINAL: Denies abdominal pain. Denies nausea or vomiting. HEMATOLOGIC: Denies bleeding disorders. GENITOURINARY: Denies any blood in urine. SKIN: Denies pruitis. Denies rash. Physical examination: Gen: This is a obese 78-year-old female in no acute distress VS: reviewed HEENT: Head is atraumatic, normocephalic. Pupils equal, round. Sclerae is anicteric. NECK: Supple. No JVD. LUNGS: Clear to auscultation. No wheezes or rhonchi. No intercostal retractio ns. HEART: Regular rate and rhythm. No murmur. + Chest wall tenderness ABDOMEN: Soft No tenderness. Soft ventral hernias. EXTREMITIES: No pedal edema. No calf tenderness. Dorsalis pedis +1 bilater ally. NEUROLOGICAL: Patient is awake, alert and oriented x3. Assessment: Non-ST elevated myocardial infarction History of coronary artery disease with previous stenting Hypertension Hyperlipidemia History of inferior ST elevated CA in 2019 Obesity History of DVT Plan: Resume patient's home cardiac medications Continue heparin drip Schedule patient for cardiac catheterization tomorrow with Dr. Judd Obtain 2-D echocardiogram and Doppler study to assess cardiac structure and function Further recommendations to follow based upon clinical course Thank you kindly for this consultation. Nurse practitioner note has been reviewed, I agree with documented findings and plan of care. Patient was seen and examined. Past Medical History Past Medical History: Coronary Artery Disease (CAD), Diabetes Mellitus, Deep Vein Thrombosis (DVT), GERD/Reflux, GI Bleed, Hyperlipidemia, Hypertension, Myocardial Infarction (CA) Additional Past Medical History / Comment(s): 5 DVT's RLE Last Myocardial Infarction Date:: 12/08/18 History of Any Multi-Drug Resistant Organisms: None Reported Past Surgical History: Heart Catheterization With Stent Additional Past Surgical History / Comment(s): cataract surgery, left shoulder surgery, carpal tunnel left wrist, heart stents 3 in july 2017, 19 february 2017, 17 Nov 2018 Past Anesthesia/Blood Transfusion Reactions: No Reported Reaction Date of Last Stent Placement:: 12/08/18 Past Psychological History: No Psychological Hx Reported Smoking Status: Never smoker Past Alcohol Use History: Unable to Obtain Past Drug Use History: Unable to Obtain Medications and Allergies Home Medications Medication Instructions Recorded Confirmed Type Atorvastatin [Lipitor] 80 mg PO HS 12/08/18 09/21/23 History INSULIN LISPRO (humaLOG) [humaLOG] See Protocol SQ AC-TID PRN 12/08/18 09/21/23 History Nitroglycerin Sl Tabs [Nitrostat] 0.4 mg SUBLINGUAL Q5M PRN #50 tab 12/14/18 09/21/23 Rx Metoprolol Tartrate [Lopressor] 25 mg PO BID 02/11/19 09/21/23 History Cyanocobalamin (Vitamin B-12) 1,000 mcg PO DAILY 12/05/20 09/21/23 History [Vitamin B-12] INSULIN LISPRO (humaLOG) [humaLOG] 25 units SQ AC-TID 12/05/20 09/21/23 History Insulin Degludec [Tresiba 104 units SQ HS 12/05/20 09/21/23 History Flextouch U-200] Latanoprost [Xalatan 0.005%] 1 drop BOTH EYES HS 12/05/20 09/21/23 History Omeprazole 20 mg PO DAILY 12/05/20 09/21/23 History allopurinoL [Zyloprim] 100 mg PO HS 12/05/20 09/21/23 History Apixaban [Eliquis] 5 mg PO BID 09/21/23 09/21/23 History Aspirin 81 mg PO W/SUPPER 09/21/23 09/21/23 History Cholecalciferol [Vitamin D3 (125 125 mcg PO DAILY 09/21/23 09/21/23 History Mcg = 5000 Iu)] Furosemide [Lasix] 20 mg PO DAILY PRN 09/21/23 09/21/23 History Isosorbide Mononitrate ER [Imdur] 60 mg PO W/SUPPER 09/21/23 09/21/23 History Magnesium Oxide [Magox 400] 400 mg PO TID 09/21/23 09/21/23 History Ranolazine [Ranexa] 500 mg PO BID 09/21/23 09/21/23 History lisinopriL [Zestril] 10 mg PO DAILY 09/21/23 09/21/23 History Allergies Allergy/AdvReac Type Severity Reaction Status Date / Time phenytoin [From Dilantin] Allergy Rash/Hives Verified 09/21/23 08:22 sulfamethoxazole Allergy Rash/Hives Verified 09/21/23 08:22 [From Bactrim] trimethoprim [From Bactrim] Allergy Rash/Hives Verified 09/21/23 08:22 Physical Exam Vitals: Vital Signs Temp Pulse Resp BP Pulse Ox 09/21/23 14:02 81 18 159/80 93 L 09/21/23 12:55 98.7 F 79 18 165/82 93 L 09/21/23 11:33 94 L 09/21/23 11:09 70 16 155/83 94 L 09/21/23 09:18 75 16 168/65 93 L 09/21/23 07:42 74 18 163/56 94 L 09/21/23 06:29 97.6 F 73 19 145/62 95 09/21/23 05:00 70 18 149/51 92 L 09/21/23 04:30 70 19 134/62 92 L 09/21/23 03:30 75 17 125/48 92 L 09/21/23 02:30 73 18 148/46 93 L 09/21/23 02:00 75 19 124/45 93 L 09/21/23 01:30 76 22 110/51 93 L 09/21/23 01:00 75 21 108/54 93 L 09/21/23 00:23 86 14 130/65 95 09/20/23 23:37 97.8 F 94 18 190/77 95 Intake and Output 09/20/23 09/21/23 09/21/23 22:59 06:59 14:59 Intake Total 107.113 Balance 107.113 Intake: Intake, IV Titration 107.113 Amount Heparin Sod,Pork in 0.45% 107.113 NaCl 25,000 unit In 0.45 % NaCl 1 250ml.bag @ 10. 14 UNITS/KG/HR 9.995 mls/ hr IV .Q24H [facility] Rx#: [id number] Other: Weight 98.566 kg Results 09/20/23 23:51 09/21/23 11:00 Cardiac Enzymes 09/20/23 09/20/23 09/21/23 Range/Units 23:51 23:51 11:48 AST 31 (14-36) U/L Troponin I 0.064 H* 3.160 H* (0.000-0.034) ng/mL Coagulation 09/20/23 09/21/23 Range/Units 23:51 11:00 PT 10.8 (10.0-12.5) sec APTT 27.9 36.9 H (22.0-30.0) sec CBC 09/20/23 Range/Units 23:51 WBC 8.1 (3.8-10.6) k/uL RBC 4.01 (3.80-5.40) m/uL Hgb 13.0 (11.4-16.0) gm/dL Hct 38.5 (34.0-46.0) % Plt Count 177 (150-450) k/uL Comprehensive Metabolic Panel 09/20/23 09/21/23 Range/Units 23:51 11:00 Sodium 137 137 (137-145) mmol/L Potassium 5.7 H 5.6 H (3.5-5.1) mmol/L Chloride 106 106 (98-107) mmol/L Carbon Dioxide 22 22 (22-30) mmol/L BUN 35 H 37 H (7-17) mg/dL Creatinine 1.33 H 1.49 H (0.52-1.04) mg/dL Glucose 195 H 149 H (74-99) mg/dL Calcium 9.4 9.5 (8.4-10.2) mg/dL AST 31 (14-36) U/L ALT 22 (4-34) U/L Alkaline Phosphatase 100 (38-126) U/L Total Protein 7.6 (6.3-8.2) g/dL Albumin 4.5 (3.5-5.0) g/dL Current Medications Generic Name Dose Route Start Last Admin Trade Name Freq PRN Reason Stop Dose Admin Allopurinol 100 mg 09/21/23 21:00 Allopurinol 100 Mg Tab PO HS [facility] Aspirin 81 mg 09/21/23 17:30 Aspirin 81 Mg PO W/SUPPER [facility] Atorvastatin Calcium 80 mg 09/21/23 21:00 Atorvastatin 80 Mg Tab PO HS [facility] Dextrose/Water 25 ml 09/21/23 08:02 Dextrose 50% Syringe 50 Ml IVP PER PROTOCOL PRN Hypoglycemia Protocol Dextrose/Water 50 ml 09/21/23 08:02 Dextrose 50% Syringe 50 Ml IVP PER PROTOCOL PRN Hypoglycemia Protocol Heparin Sodium (Porcine) 0 unit 09/21/23 01:30 09/21/23 12:35 Heparin Sodium 1,000 Un/Ml (10ml Vl) IV 2,646 unit PER PROTOCOL PRN Administration Low PTT Protocol Heparin Sodium/Sodium Chloride 250 mls @ 9.995 mls/hr 09/21/23 01:30 09/21/23 12:40 25,000 unit/ Sodium Chloride IV 12.14 units/kg/hr .Q24H [facility] 11.966 mls/hr Titration Protocol 10.14 UNITS/KG/HR Insulin Aspart 0 unit 09/21/23 12:30 09/21/23 12:01 Insulin Aspart (Novolog) 100 Unit/Ml Vial SQ Not Given ACHS [facility] Protocol Insulin Aspart 10 unit 09/21/23 12:30 09/21/23 12:33 Insulin Aspart (Novolog) 100 Unit/Ml Vial SQ 10 unit AC-TID [facility] Administration Insulin Detemir 50 unit 09/21/23 21:00 Insulin Detemir (Levemir) 100 Unit/Ml Syr SQ HS [facility] Isosorbide Mononitrate 60 mg 09/21/23 17:30 Isosorbide Mononitrate Er 60 Mg Tab.Er.24h PO W/SUPPER [facility] Latanoprost 1 drops 09/21/23 21:00 Latanoprost 0.005% Ophth Drops 2.5 Ml Btl BOTH EYES HS [facility] Lisinopril 10 mg 09/22/23 09:00 Lisinopril 10 Mg Tab PO DAILY [facility] Magnesium Oxide 400 mg 09/21/23 16:00 Magnesium Oxide 400 Mg Tab PO TID [facility] Metoprolol Tartrate 25 mg 09/21/23 10:00 09/21/23 09:57 Metoprolol Tartrate 25 Mg Tab PO 25 mg BID [facility] Administration Miscellaneous Information 1 each 09/21/23 09:06 Magnesium Replacement Protocol 1 Each Misc MISCELLANE DAILY PRN Per Protocol Protocol Morphine Sulfate 4 mg 09/21/23 01:41 09/21/23 06:34 Morphine Sulfate 4 Mg/Ml Syringe IV 4 mg Q4HR PRN Administration Severe Pain (Scale 7 to 10) Naloxone HCl 0.2 mg 09/21/23 01:36 Naloxone 0.4 Mg/Ml 1 Ml Vial IV Q2M PRN Opioid Reversal Nitroglycerin 0.4 mg 09/21/23 09:03 Nitroglycerin Sl Tabs 0.4 Mg Tab SUBLINGUAL Q5M PRN Chest Pain Pantoprazole Sodium 40 mg 09/22/23 07:30 Pantoprazole 40 Mg Tablet PO AC-BRKFST [facility] Ranolazine 500 mg 09/21/23 21:00 Ranolazine 500 Mg Tab.Er.12h PO BID [facility] Intake and Output 09/20/23 09/21/23 09/21/23 22:59 06:59 14:59 Intake Total 107.113 Balance 107.113 Intake: Intake, IV Titration 107.113 Amount Heparin Sod,Pork in 0.45% 107.113 NaCl 25,000 unit In 0.45 % NaCl 1 250ml.bag @ 10. 14 UNITS/KG/HR 9.995 mls/ hr IV .Q24H [facility] Rx#: [id number] Other: Weight 98.566 kg 09/20/23 23:51 09/21/23 11:00
[2023-09-21] MEDS: ASPIRIN 325 MG TAB PO STA (14:52)
[2023-09-21 17:00] LABS: Glucose,Whole Blood 141 mg/dL (70-110)
[2023-09-21] MEDS: ASPIRIN 81 MG PO SCH (17:11)
[2023-09-21] MEDS: MAGNESIUM OXIDE 400 MG TAB PO SCH (17:12)
[2023-09-21] MEDS: ISOSORBIDE MONONITRATE ER 60 MG TAB.ER.24H PO SCH (17:12)
--- NOTE | 2023-09-21 18:41 | CA ---
Transthoracic Echo Report Name: Yoana Lombardi Age: 78 Gender: F : 1945 Exam Date: 09/21/2023 14:47 Exam Location: [facility] Ht (in): 62 Wt (lb): 210 Ordering Physician: Mickie Barrett Attending/Referring Phys: [id number], Nena Compensation And Benefits Advisor Marielle Bolden RDCS Procedure CPT: Indications: lvf, NSTEMI Cardiac Hx: Technical Quality: Technically difficult study Contrast 1: Definity Total Dose (mL): 2 Contrast 2: Total Dose (mL): MEASUREMENTS (Male / Female) Normal Values 2D ECHO LV Diastolic Diameter PLAX 3.6 cm 4.2 - 5.9 / 3.9 - 5.3 cm LV Systolic Diameter PLAX 2.2 cm IVS Diastolic Thickness 1.4 cm 0.6 - 1.0 / 0.6 - 0.9 cm LVPW Diastolic Thickness 1.5 cm 0.6 - 1.0 / 0.6 - 0.9 cm LV Relative Wall Thickness 0.8 RV Internal Dim ED PLAX 3.7 cm LA Volume 40.3 cm??? 18 - 58 / 22 - 52 cm??? LA Volume Index 19.3 cm???/m??? 16 - 28 cm???/m??? M-MODE Aortic Root Diameter MM 2.4 cm LA Systolic Diameter MM 5.0 cm LA Ao Ratio MM 2.1 AV Cusp Separation MM 0.9 cm DOPPLER AV Peak Velocity 265.4 cm/s AV Peak Gradient 28.2 mmHg AV Mean Velocity 195.5 cm/s AV Mean Gradient 16.4 mmHg AV Velocity Time Integral 53.6 cm LVOT Peak Velocity 118.9 cm/s LVOT Peak Gradient 5.7 mmHg LVOT Velocity Time Integral 27.5 cm MV Peak Velocity 148.8 cm/s MV Peak Gradient 8.9 mmHg MV Mean Velocity 104.3 cm/s MV Mean Gradient 4.6 mmHg MV Velocity Time Integral 29.8 cm MV Area PHT 3.6 cm??? Mitral E Point Velocity 134.2 cm/s Mitral A Point Velocity 128.7 cm/s Mitral E to A Ratio 1.0 MV Deceleration Time 208.7 ms MV E' Velocity 5.3 cm/s Mitral E to MV E' Ratio 25.1 TR Peak Velocity 256.8 cm/s TR Peak Gradient 26.4 mmHg Right Ventricular Systolic Press 31.4 mmHg FINDINGS Left Ventricle Moderately increased left ventricular wall thickness. Left ventricular cavity size normal. Normal left ventricular systolic function with no obvious regional wall motion abnormalities. Left ventricular ejection fraction is estimated at 55-60 %. Right Ventricle Mild right ventricular dilatation. Right ventricular systolic pressure within normal limits. Right Atrium Normal right atrial size. Left Atrium Normal left atrial size. Mitral Valve Structurally normal mitral valve. Mitral valve thickened. Moderate mitral annular calcification. Mild mitral regurgitation. Aortic Valve Mild aortic stenosis with a peak gradient of 28 mmHg and a mean gradient of 16 mmHg. No aortic regurgitation. Tricuspid Valve Structurally normal tricuspid valve. Mild tricuspid regurgitation. Pulmonic Valve Structurally normal pulmonic valve. Trace pulmonic regurgitation. Pericardium No pericardial effusion. Aorta Normal size aortic root and proximal ascending aorta. CONCLUSIONS Normal LV systolic function Mild aortic stenosis Severe mitral annular calcification with mild mitral regurgitation Previewed by: Dr. Chris Thakur MD (Electronically Signed) Final Date: 21 September 2023 18:40
[2023-09-21] MEDS: RANOLAZINE 500 MG TAB.ER.12H PO SCH (22:41)
[2023-09-21 22:42] LABS: Glucose,Whole Blood 115 mg/dL (70-110)
[2023-09-21] MEDS: ATORVASTATIN 80 MG TAB PO ONE (22:42)
[2023-09-21] MEDS: allopurinoL 100 MG TAB PO SCH (22:42)
[2023-09-21] MEDS: ATORVASTATIN 80 MG TAB PO SCH (22:43)
[2023-09-21] MEDS: INSULIN DETEMIR (LEVEMIR) 100 UNIT/ML SYR SQ SCH (22:43)
[2023-09-21] MEDS: LATANOPROST 0.005% OPHTH DROPS 2.5 ML BTL BOTH EYES SCH (22:44)
[2023-09-22] MEDS: ASPIRIN 325 MG TAB PO ONE (04:19)
[2023-09-22] MEDS: ALPRAZolam 0.25 MG TAB PO PRN (05:27)
[2023-09-22] MEDS ORDERED: HEPARIN SODIUM,PORCINE 10,000 UNIT in SODIUM CHLORIDE 0.9% 1,000 ML IRRIGATION PRN (07:00)
[2023-09-22] MEDS ORDERED: HEPARIN SODIUM,PORCINE (1 ML) 2,500 UNIT in SODIUM CHLORIDE 0.9% 250 ML IRRIGATION PRN (07:00)
[2023-09-22] MEDS ORDERED: PANTOPRAZOLE 40 MG TABLET PO SCH (07:30)
[2023-09-22 07:31] LABS: Basophils % (A) 0 %; Eosinophils % (A) 0 %; HCT 35.2 % (34.0-46.0); HGB 11.4 gm/dL (11.4-16.0); Lymphocytes # (A) 0.6 k/uL (1.0-4.8); Lymphocytes % (A) 9 %; MCH 31.8 pg (25.0-35.0); MCHC 32.5 g/dL (31.0-37.0); Mean Platelet Volume 9.9; Monocytes # (A) 0.7 k/uL (0-1.0); Monocytes % (A) 12 %; Neutrophils # (A) 4.6 k/uL (1.3-7.7); Neutrophils % (A) 77 %; Platelet Count 177 k/uL (150-450); RBC 3.59 m/uL (3.80-5.40); RDW 14.3 % (11.5-15.5)
[2023-09-22 07:45] LABS: Prothrombin Time 11.2 sec (10.0-12.5)
[2023-09-22 08:10] LABS: African American GFR (CKD) 31 (>60 ml/min/1.73 sqM); Anion Gap 8 mmol/L; Blood Urea Nitrogen 39 mg/dL (7-17); Carbon Dioxide 21 mmol/L (22-30); Chloride 105 mmol/L (98-107); Glucose 127 mg/dL (74-99); Magnesium 1.8 mg/dL (1.6-2.3); Non-African American GFR(CKD) 27 (>60 ml/min/1.73 sqM); Potassium 5.4 mmol/L (3.5-5.1); Sodium 134 mmol/L (137-145)
[2023-09-22] MEDS: HEPARIN SOD,PORK IN 0.45% NACL 25,000 UNIT in 0.45% NACL 1 250ML.BAG IV ONE (08:25)
[2023-09-22] MEDS: SODIUM CHLORIDE 0.9% 1,000 ML in EMPTY BAG 1 BAG IV ONE (08:26)
[2023-09-22] MEDS: ASPIRIN 81 MG ONE (08:40)
[2023-09-22] MEDS: SODIUM CHLORIDE 0.9% 1,000 ML IV ONE (11:00)
[2023-09-22] MEDS: PANTOPRAZOLE 40 MG TABLET PO STA (11:06)
[2023-09-22] MEDS: fentaNYL (PF) 50 MCG/1 ML VIAL IVP ONE (12:19)
[2023-09-22] MEDS: LIDOCAINE 1% INJ 10MG/ML (20 ML MDV) SQ ONE (12:21)
[2023-09-22] MEDS: MIDAZOLAM 2 MG/2 ML VIAL IVP ONE (12:23)
[2023-09-22] MEDS: HEPARIN SODIUM 1,000 UN/ML (10ML VL) IV ONE (12:35)
[2023-09-22] MEDS: CLOPIDOGREL 75 MG TAB PO ONE (12:44)
[2023-09-22] MEDS: IOPAMIDOL-370 100ML BTL INJ ONE ×2 (13:04→13:32)
[2023-09-22] MEDS ORDERED: MAG HYDROX/AL HYDROX/SIMETH 30 ML CUP PO PRN (13:44)
[2023-09-22] MEDS ORDERED: ZOLPIDEM 5 MG TAB PO PRN (13:44)
[2023-09-22] MEDS ORDERED: ATROPINE SULFATE 0.1 MG/ML 10ML SYRINGE IV PRN (13:44)
[2023-09-22] MEDS ORDERED: NITROGLYCERIN SL TABS 0.4 MG TAB SUBLINGUAL PRN (13:44)
[2023-09-22] MEDS ORDERED: RX INFO: IV CONTRAST WAS GIVEN 1 EACH MISC MISCELLANE PRN (13:44)
--- NOTE | 2023-09-22 13:55 | P.CARDCATH ---
Date of Procedure: 09/22/23 Description of Procedure: Cardiac Catheterization: The patient is a 78-year-old female with a known history of CAD, chronically occluded RCA who presented with symptoms of chest discomfort and evidence of non-STEMI. Recommendations were made regarding cardiac catheterization, the risks and the complications were discussed with the patient who is in full understanding and agreement. Procedure Description: Patient was brought to crime lab analyst in fasting semi-sedated state after receiving Fentanyl and Benadryl achieiving moderate conscious sedated state. Using Xylocaine Anesthesia and modified Seldinger technique, using a micropuncture technique a 6-Malian sheath was introduced in the right femoral artery . The patient had weak radial pulse. Subsequently, selective coronary angiography was performed using a 6-Malian 4 bend Jessica catheter. Multiple views of the coronary artery including hemiaxial views were obtained. The 6 Malian pigtail catheter was used to cross the aortic valve and LVEDP was calculated. PCI: After removing the catheters a 6 Malian CLS 3.5 guiding catheter was introduced and after cannulating the left main a 0.014 BMW J-wire was advanced and positioned in the distal left circumflex. Subsequently a 3.0 x 12 mm NC trek was advanced with the help of a 6 Malian guide liner. Multiple inflations at 10 chung were done. Subsequently a VideoCare eye IVUS catheter was introduced and imaging were obtained. After removing the catheter a 3.0 x 12 mm lithotripsy shockwave balloon was advanced and multiple treatment were delivered over the lesions. Repeat IVUS was performed. Subsequently a 3.25 x 15 mm Xience meli point stent was advanced and deployed at 16 chung, after removing the balloon another 3.25 x 18 mm Xience meli point stent was deployed proximal to the first 1 at 16 chung. Repeat IVUS was performed and after removing the catheter a 3.25 x 12 mm NC trek balloon was advanced and multiple inflations at 12 chung were done. Following that the wire was removed images were obtained and revealed successful stenting. Following that, catheter and sheath were removed. Hemostasis was obtained with deployment of an Angio-Seal. There was no immediate complication. Patient was returned to room in stable condition. Of note, the patient received a total of 7000 units of intravenous heparin as well as oral loading dose of clopidogrel. Her ACT was monitored. She had no chest discomfort or EKG changes with the inflations. Findings: Fluoroscopy: Severe calcifications of all the coronary arteries was noted. Left main: This is a large size vessel, bifurcating into LAD and left circumflex, left main has no high-grade stenosis LAD: This is a large size vessel, reaching to the apex, giving rise to a large diagonal branch in the midsegment. The proximal LAD has 20% plaque, there is a 30 to 40% plaque after the takeoff of the first diagonal branch and there is a 50% plaque in the proximal diagonal branch. Left circumflex: This is a large nondominant vessel, giving rise to 4 obtuse marginal branch, heavily calcified. The proximal left circumflex has a 99% darlin nosis prior to the takeoff of the second obtuse marginal branch and another 99% stenosis following the takeoff of the second obtuse marginal branch in a very tortuous segment RCA: This vessel is stented from the proximal to the distal segment, chronically occluded with no antegrade flow after the takeoff of the acute marginal branch. There is collaterals from the left coronary system toward the right PDA Left Ventriculogram: Not performed Hemodynamics: There was no gradient across the aortic valve, LVEDP was 14-16 mmHg Conclusion: 1. Calcified coronary arteries 2. Severe stenosis in the proximal tortuous left circumflex 3. Mild to moderate disease in the proximal and mid LAD 4. Chronically occluded RCA with collaterals from the left system 5. Successful stenting of the proximal left circumflex with reduction of stenosis from 99% to less than 5% with IVUS imaging and lithotripsy Recommendations: The patient will continue on aspirin and clopidogrel without any interruption for 1 year in addition to aggressive coronary risks modification, attempting to maintain her LDL to less then 70 mg/dL. The findings and the recommendations were discussed with the patient and the family and they were in full understanding and agreement. Duration of sedation is 71 minutes.
[2023-09-22 14:04] LABS: Glucose,Whole Blood 135 mg/dL (70-110)
[2023-09-22] MEDS: lisinopriL 10 MG TAB PO STA (14:37)
[2023-09-22] MEDS: SODIUM CHLORIDE 0.9% 1,000 ML in EMPTY BAG 1 BAG IV SCH (14:39)
[2023-09-22 16:41] LABS: Glucose,Whole Blood 107 mg/dL (70-110)
[2023-09-22 20:28] LABS: Glucose,Whole Blood 93 mg/dL (70-110)
[2023-09-23 06:09] LABS: Glucose,Whole Blood 99 mg/dL (70-110)
[2023-09-23] MEDS: PANTOPRAZOLE 40 MG TABLET PO SCH (06:47)
[2023-09-23] MEDS: lisinopriL 10 MG TAB PO SCH (08:18)
[2023-09-23] MEDS: CLOPIDOGREL 75 MG TAB PO SCH (08:18)
[2023-09-23 11:37] VITALS: BMI 36.1
[2023-09-23 11:42] LABS: African American GFR (CKD) 29 (>60 ml/min/1.73 sqM); Anion Gap 8 mmol/L; Blood Urea Nitrogen 50 mg/dL (7-17); Calcium 8.3 mg/dL (8.4-10.2); Carbon Dioxide 16 mmol/L (22-30); Chloride 108 mmol/L (98-107); Glucose 96 mg/dL (74-99); Non-African American GFR(CKD) 25 (>60 ml/min/1.73 sqM); Sodium 132 mmol/L (137-145)
[2023-09-23 11:43] LABS: Potassium 5.5 mmol/L (3.5-5.1)
--- NOTE | 2023-09-23 11:48 | P.PN ---
Subjective This is a pleasant 78 years old female with past medical history of recurrent DVT s/p IVC filter on Eliquis at home, coronary artery disease, diabetes mellitus, hypertension, hyperlipidemia, GI bleed. Patient presents because of chest pain which she has been having on and off since last [place] however since yesterday the chest pain was severe 10/10, in the middle of the chest nonradiating associated with some dyspnea and little cough. Patient received morphine in the emergency room and her chest pain now down to /10 Also she vomited once in the ambulance but she has no abdominal pain and her bowel movement feels fine Patient walks little bit at baseline because of her neuropathy. She denies urinary symptoms, no dysuria or urgency No headache dizziness weakness or numbness Patient says she was taking her Eliquis at home to last night when she got sick and came to emergency room Patient denies smoking or alcohol or illicit drugs. Patient is hemodynamically stable increased oxygen saturating 94% on 2 L oxygen via nasal cannula She has unremarkable CBC, INR 1.0, creatinine slightly up 1.3, unknown baseline but she has reading from 2021 as 2.1. Magnesium low 1.5 Troponin is elevated 0.06 Lipase is negative at 199 EKG showing sinus rhythm at 70/min, depression on V2-V6 but this is also seen in old EKG Chest x-ray is negative for acute process 09/23/2023 Patient awake and alert Patient remains on the same treatment No new complaints She is going for cardiac cath today Monitor glucose and creatinine and potassium level Objective - Vital Signs Vital signs: Vital Signs Temp 99.6 F 09/22/23 08:27 Pulse 64 09/22/23 18:35 Resp 16 09/22/23 18:35 BP 102/63 09/22/23 18:35 Pulse Ox 91 L 09/22/23 18:35 FiO2 Intake & Output 09/22/23 09/22/23 09/23/23 06:59 18:59 06:59 Intake Total 357.681 8691 Output Total 60 Balance 478.692 8223 Weight 98.566 kg Intake: IV 1235 Intake, IV Titration 124.269 Amount Heparin Sod,Pork in 0.45% 124.269 NaCl 25,000 unit In 0.45 % NaCl 1 250ml.bag @ 10. 14 UNITS/KG/HR 9.995 mls/ hr IV .Q24H [facility] Rx#: [id number] Output: Urine 60 - Exam GENERAL: The patient is alert and oriented x3, not in any acute distress. Well developed, well nourished. HEENT: Pupils are round and equally reacting to light. EOMI. No scleral icterus. No conjunctival pallor. Normocephalic, atraumatic. No pharyngeal erythema. No thyromegaly. CARDIOVASCULAR: S1 and S2 present. No murmurs, rubs, or gallops. PULMONARY: Chest is clear to auscultation, no wheezing , no crackles. ABDOMEN: Soft, nontender, nondistended, normoactive bowel sounds. No palpable organomegaly. MUSCULOSKELETAL: No joint swelling or deformity. EXTREMITIES: No cyanosis, clubbing, or pedal edema. NEUROLOGICAL: Gross neurological examination did not reveal any focal deficits. SKIN: No rashes. no petechiae. - Labs CBC & Chem 7: 09/22/23 05:28 09/23/23 10:44 Labs: Abnormal Lab Results - Last 24 Hours (Table) 09/21/23 09/21/23 09/21/23 Range/Units 19:05 19:05 22:40 RBC (3.80-5.40) m/uL Lymphocytes # (1.0-4.8) k/uL APTT 119.1 H* (22.0-30.0) sec Sodium (137-145) mmol/L Potassium (3.5-5.1) mmol/L Carbon Dioxide (22-30) mmol/L BUN (7-17) mg/dL Creatinine (0.52-1.04) mg/dL Glucose (74-99) mg/dL POC Glucose (mg/dL) 115 H (70-110) mg/dL Hemoglobin A1c (<=6.0) % Troponin I 2.990 H* (0.000-0.034) ng/mL 09/22/23 09/22/23 09/22/23 Range/Units 05:28 05:28 05:28 RBC 3.59 L (3.80-5.40) m/uL Lymphocytes # 0.6 L (1.0-4.8) k/uL APTT (22.0-30.0) sec Sodium 134 L (137-145) mmol/L Potassium 5.4 H (3.5-5.1) mmol/L Carbon Dioxide 21 L (22-30) mmol/L BUN 39 H (7-17) mg/dL Creatinine 1.80 H (0.52-1.04) mg/dL Glucose 127 H (74-99) mg/dL POC Glucose (mg/dL) (70-110) mg/dL Hemoglobin A1c 8.3 H (<=6.0) % Troponin I (0.000-0.034) ng/mL 09/22/23 09/22/23 Range/Units 05:28 14:02 RBC (3.80-5.40) m/uL Lymphocytes # (1.0-4.8) k/uL APTT 49.0 H (22.0-30.0) sec Sodium (137-145) mmol/L Potassium (3.5-5.1) mmol/L Carbon Dioxide (22-30) mmol/L BUN (7-17) mg/dL Creatinine (0.52-1.04) mg/dL Glucose (74-99) mg/dL POC Glucose (mg/dL) 135 H (70-110) mg/dL Hemoglobin A1c (<=6.0) % Troponin I (0.000-0.034) ng/mL Assessment and Plan Assessment: Chest pain with elevated troponin suspicious for non-STEMI in view of her history of coronary artery disease Mild acute kidney injury on chronic kidney disease stage II-III with mild hyperkalemia Diabetes mellitus Hyperlipidemia Hypertension History of GERD Obesity with BMI 36.2 on admission Plan: Patient is going for cardiac cath today Continue with heparin drip Pain management Continue with aspirin 81 mg which is a home medication. Continue with Lipitor Cardiology consult Labs and medication were reviewed.. Continue same treatment. Continue with symptomatic treatment. Resume home medication. Monitor labs and vitals. DVT and GI prophylaxis. Further recommendations as per clinical course of the patient DVT prophylaxis: heparin GI Prophylaxis: Pepcid PT/OT: Pending Prognosis is guarded
[2023-09-23 12:01] LABS: Glucose,Whole Blood 96 mg/dL (70-110)
--- NOTE | 2023-09-23 13:00 | P.PN ---
Subjective HISTORY OF PRESENT ILLNESS: This is a 78-year-old female patient of Dr. Judd with past medical history of diabetes, hypertension, hyperlipidemia, obesity, DVT in the right lower extremity, coronary artery disease with stenting and history of inferior ST elevated myocardial infarction in 2019. We have been asked to evaluate the patient for acute chest pain and non-ST elevated [place]. Patient is tentatively scheduled for cardiac catheterization on 10/11. Patient states that she has midsternal chest pain on and off for the past few months and seems to be worsening. She denies any radiation of the pain. She did have some nausea today and headache. Patient seen today in the emergency center waiting for bed on the observation unit. She has been started on heparin drip and home cardiac medications. EKG sinus rhythm with right bundle branch block Chest x-ray: Low lung volumes. No focal consolidation. CBC within normal limits. INR 1. Sodium 137, potassium 5.6, chloride 106, CO2 22, BUN 37 creatinine 1.49. Glucose 149. Troponins 0.064 and 3.16. Magnesium 1.5. Liver function test are normal. proBNP 872. Lipase 199. Home cardiac medications: Eliquis 5 mg twice daily, aspirin 81 mg daily, atorvastatin 80 mg at bedtime, Lasix 20 mg daily as needed, Imdur 60 mg with supper, lisinopril 10 mg daily, magnesium oxide 400 mg 3 times daily, Lopressor 25 mg twice daily, Nitrostat as needed, Ranexa 500 mg twice daily Cardiac catheterization performed 12/08/2018 revealed acutely occluded right coronary artery and long stented segment, calcified coronary arteries, mild disease in the LAD and left circumflex. Subsequently, patient underwent PCI with recanalization a long stented segment of the right coronary artery. Echocardiogram performed 12/09/2018 revealed EF 55 to 60%, mild concentric left hypertrophy, mild mitral digitation, mild tricuspid regurgitation. 09/23/2023 Patient is status postcardiac catheterization yesterday with Dr. Judd revealing calcified coronary arteries. Severe stenosis in the proximal tortuous left circumflex. Mild to moderate disease in proximal and mid LAD. Chronically occluded RCA with collaterals from left system. Patient underwent stenting of the proximal left circumflex. Patient examined this morning at the bedside. She denies chest pain or pressure. She denies shortness of breath. Vital signs are stable. Creatinine worsened today at 1.92. PHYSICAL EXAM: VITAL SIGNS: Reviewed. GENERAL: Well-developed in no acute distress. NECK: Supple. No JVD or thyromegaly LUNGS: Respirations even and unlabored. Lungs essentially clear to auscultation bilaterally. HEART: Regular rate and rhythm. S1 and S2 heard. EXTREMITIES: Normal range of motion. No clubbing or cyanosis. Peripheral pulses intact. No lower extremity edema ASSESSMENT: Non-ST elevated myocardial infarction, status post stenting of the proximal left circumflex Acute kidney injury Hyperkalemia History of coronary artery disease with previous stenting Hypertension Hyperlipidemia History of inferior ST elevated NH in 2019 Obesity History of DVT PLAN: Continue dual antiplatelet therapy with aspirin and Plavix Continue high intensity statin Patient with worsening kidney function today. Patient is also having soft blood pressures with a systolic in the 90s. Will hold lisinopril at this time Begin IV fluids at 75 cc an hour Recheck kidney function in a.m. Further recommendations pending patient course Nurse practitioner note has been reviewed by physician. Signing provider agrees with the documented findings, assessment, and plan of care documented by INSULATION INSTALLER as a scribe. Objective - Vital Signs Vital signs: Vital Signs Temp 98.7 F 09/23/23 08:00 Pulse 76 09/23/23 08:00 Resp 18 09/23/23 08:00 BP 95/47 09/23/23 08:00 Pulse Ox 90 L 09/23/23 08:00 FiO2 Intake & Output 09/22/23 09/23/23 09/23/23 18:59 06:59 18:59 Intake Total 1235 Output Total 60 Balance 1175 Weight 98.566 kg 98.566 kg Intake: IV 1235 Output: Urine 60 Other: Voiding Method External Catheter External Catheter - Labs CBC & Chem 7: 09/22/23 05:28 09/23/23 10:44 Labs: Abnormal Lab Results - Last 24 Hours (Table) 09/22/23 09/23/23 Range/Units 14:02 10:44 Sodium 132 L (137-145) mmol/L Potassium 5.5 H (3.5-5.1) mmol/L Chloride 108 H (98-107) mmol/L Carbon Dioxide 16 L (22-30) mmol/L BUN 50 H (7-17) mg/dL Creatinine 1.92 H (0.52-1.04) mg/dL POC Glucose (mg/dL) 135 H (70-110) mg/dL Calcium 8.3 L (8.4-10.2) mg/dL
[2023-09-23] MEDS: SODIUM CHLORIDE 0.9% 1,000 ML IV SCH (13:41)
[2023-09-23 17:13] LABS: Glucose,Whole Blood 120 mg/dL (70-110)
[2023-09-23] MEDS: DEXTROSE 5% IN WATER 1,000 ML with SODIUM BICARB (1 MEQ/ML) 150 ML IV SCH (17:13)
[2023-09-23] MEDS: METOPROLOL TARTRATE 12.5 MG TAB PO SCH (19:45)
--- NOTE | 2023-09-23 20:21 | P.PN ---
Subjective This is a pleasant 78 years old female with past medical history of recurrent DVT s/p IVC filter on Eliquis at home, coronary artery disease, diabetes mellitus, hypertension, hyperlipidemia, GI bleed. Patient presents because of chest pain which she has been having on and off since last [place] however since yesterday the chest pain was severe 10/10, in the middle of the chest nonradiating associated with some dyspnea and little cough. Patient received morphine in the emergency room and her chest pain now down to 1/10 Also she vomited once in the ambulance but she has no abdominal pain and her bowel movement feels fine Patient walks little bit at baseline because of her neuropathy. She denies urinary symptoms, no dysuria or urgency No headache dizziness weakness or numbness Patient says she was taking her Eliquis at home to last night when she got sick and came to emergency room Patient denies smoking or alcohol or illicit drugs. Patient is hemodynamically stable increased oxygen saturating 94% on 2 L oxygen via nasal cannula She has unremarkable CBC, INR 1.0, creatinine slightly up 1.3, unknown baseline but she has reading from 2021 as 2.1. Magnesium low 1.5 Troponin is elevated 0.06 Lipase is negative at 199 EKG showing sinus rhythm at 70/min, depression on V2-V6 but this is also seen in old EKG Chest x-ray is negative for acute process 09/22/2023 Patient awake and alert Patient remains on the same treatment No new complaints She is going for cardiac cath today Monitor glucose and creatinine and potassium level 09/23/2023 Patient complains from mild pain. She looks tired little bit. Also patient had low-grade temperature 100.3 x 1 most likely reactive, no evidence of infection currently no leukocytosis. We will check labs and chest x-ray in the morning Also patient has worsening creatinine was 1.3 on admission went up to 1.9, with mild hyperkalemia. Will put on low-dose potassium diet. Hold lisinopril continue with IV fluid. [employer] consulted. Cardiology on the case. Heparin drip discontinued Objective - Vital Signs Vital signs: Vital Signs Temp 98.7 F 09/23/23 08:00 Pulse 76 09/23/23 08:00 Resp 18 09/23/23 08:00 BP 95/47 09/23/23 08:00 Pulse Ox 90 L 09/23/23 08:00 FiO2 Intake & Output 09/22/23 09/23/23 09/23/23 18:59 06:59 18:59 Intake Total 1235 Output Total 60 Balance 1175 Weight 98.566 kg 98.566 kg Intake: IV 1235 Output: Urine 60 Other: Voiding Method External Catheter External Catheter - Exam GENERAL: The patient is alert and oriented x3, not in any acute distress. Well developed, well nourished. HEENT: Pupils are round and equally reacting to light. EOMI. No scleral icterus. No conjunctival pallor. Normocephalic, atraumatic. No pharyngeal erythema. No thyromegaly. CARDIOVASCULAR: S1 and S2 present. No murmurs, rubs, or gallops. PULMONARY: Chest is clear to auscultation, no wheezing , no crackles. ABDOMEN: Soft, nontender, nondistended, normoactive bowel sounds. No palpable organomegaly. MUSCULOSKELETAL: No joint swelling or deformity. EXTREMITIES: No cyanosis, clubbing, or pedal edema. NEUROLOGICAL: Gross neurological examination did not reveal any focal deficits. SKIN: No rashes. no petechiae. - Labs CBC & Chem 7: 09/22/23 05:28 09/23/23 10:44 Labs: Abnormal Lab Results - Last 24 Hours (Table) 09/22/23 09/23/23 Range/Units 14:02 10:44 Sodium 132 L (137-145) mmol/L Potassium 5.5 H (3.5-5.1) mmol/L Chloride 108 H (98-107) mmol/L Carbon Dioxide 16 L (22-30) mmol/L BUN 50 H (7-17) mg/dL Creatinine 1.92 H (0.52-1.04) mg/dL POC Glucose (mg/dL) 135 H (70-110) mg/dL Calcium 8.3 L (8.4-10.2) mg/dL Assessment and Plan Assessment: Chest pain with elevated troponin suspicious for non-STEMI in view of her history of coronary artery disease Mild acute kidney injury on chronic kidney disease stage II-III with mild hyperkalemia Diabetes mellitus Hyperlipidemia Hypertension History of GERD Obesity with BMI 36.2 on admission Plan: pt is worsening creatinine , hold lisinopril and start sodium bicarb heparin drip discontinued Continue with aspirin 81 mg which is a home medication. Continue with Lipitor and Plavix per patient intake coordinator Cardiology consult Labs and medication were reviewed.. Continue same treatment. Continue with symptomatic treatment. Resume home medication. Monitor labs and vitals. DVT and GI prophylaxis. Further recommendations as per clinical course of the patient DVT prophylaxis: heparin GI Prophylaxis: Pepcid PT/OT: Pending Prognosis is guarded
[2023-09-23 20:29] LABS: Glucose,Whole Blood 130 mg/dL (70-110)
--- NOTE | 2023-09-23 21:36 | P.NPCON ---
History of Present Illness - Reason for Consult acute renal failure - History of Present Illness Patient is a 78-year-old female with history of hypertension, type 2 diabetes, coronary artery disease who is admitted to the hospital with complaints of chest pain. Patient ruled in for acute non-ST elevation [place]. Status post cardiac catheterization on 09/22/2023 with left circumflex stent placement. Patient has underlying chronic kidney disease and Stage IIIa with baseline creatinine about 1.3 to 1.4 mg/dL. Serum creatinine was 1.3 on admission and increased to 1.9 today. Blood pressure has been low with systolic in the 90s. Urine output not accurately charted. Patient was maintained on NAYE inhibitor's which were discontinued today. No complaints of chest pain currently. Review of Systems As per HPI Past Medical History Past Medical History: Coronary Artery Disease (CAD), Diabetes Mellitus, Deep Vein Thrombosis (DVT), GERD/Reflux, GI Bleed, Hyperlipidemia, Hypertension, Myocardial Infarction ([place]) Additional Past Medical History / Comment(s): 5 DVT's RLE Last Myocardial Infarction Date:: 12/08/18 History of Any Multi-Drug Resistant Organisms: None Reported Past Surgical History: Heart Catheterization With Stent Additional Past Surgical History / Comment(s): cataract surgery, left shoulder surgery, carpal tunnel left wrist, heart stents 3 in july 2017, 19 february 2017, 17 Nov 2018 Past Anesthesia/Blood Transfusion Reactions: No Reported Reaction Date of Last Stent Placement:: 12/08/18 Past Psychological History: No Psychological Hx Reported Smoking Status: Never smoker Past Alcohol Use History: Unable to Obtain Past Drug Use History: Unable to Obtain Medications and Allergies Home Medications Medication Instructions Recorded Confirmed Type Atorvastatin [Lipitor] 80 mg PO HS 12/08/18 09/21/23 History INSULIN LISPRO (humaLOG) [humaLOG] See Protocol SQ AC-TID PRN 12/08/18 09/21/23 History Nitroglycerin Sl Tabs [Nitrostat] 0.4 mg SUBLINGUAL Q5M PRN #50 tab 12/14/18 09/21/23 Rx Metoprolol Tartrate [Lopressor] 25 mg PO BID 02/11/19 09/21/23 History Cyanocobalamin (Vitamin B-12) 1,000 mcg PO DAILY 12/05/20 09/21/23 History [Vitamin B-12] INSULIN LISPRO (humaLOG) [humaLOG] 25 units SQ AC-TID 12/05/20 09/21/23 History Insulin Degludec [Tresiba 104 units SQ HS 12/05/20 09/21/23 History Flextouch U-200] Latanoprost [Xalatan 0.005%] 1 drop BOTH EYES HS 12/05/20 09/21/23 History Omeprazole 20 mg PO DAILY 12/05/20 09/21/23 History allopurinoL [Zyloprim] 100 mg PO HS 12/05/20 09/21/23 History Apixaban [Eliquis] 5 mg PO BID 09/21/23 09/21/23 History Aspirin 81 mg PO W/SUPPER 09/21/23 09/21/23 History Cholecalciferol [Vitamin D3 (125 125 mcg PO DAILY 09/21/23 09/21/23 History Mcg = 5000 Iu)] Furosemide [Lasix] 20 mg PO DAILY PRN 09/21/23 09/21/23 History Isosorbide Mononitrate ER [Imdur] 60 mg PO W/SUPPER 09/21/23 09/21/23 History Magnesium Oxide [Magox 400] 400 mg PO TID 09/21/23 09/21/23 History Ranolazine [Ranexa] 500 mg PO BID 09/21/23 09/21/23 History lisinopriL [Zestril] 10 mg PO DAILY 09/21/23 09/21/23 History Allergies Allergy/AdvReac Type Severity Reaction Status Date / Time phenytoin [From Dilantin] Allergy Rash/Hives Verified 09/21/23 08:22 sulfamethoxazole Allergy Rash/Hives Verified 09/21/23 08:22 [From Bactrim] trimethoprim [From Bactrim] Allergy Rash/Hives Verified 09/21/23 08:22 Physical Exam Vitals: Vital Signs Temp Pulse Pulse Resp BP Pulse Ox 09/23/23 16:00 98.3 F 71 18 153/76 94 L 09/23/23 08:00 98.7 F 76 18 95/47 90 L 09/23/23 04:00 100.3 F H 79 16 109/69 91 L Intake and Output 09/23/23 09/23/23 09/23/23 06:59 14:59 22:59 Other: Voiding Method External Catheter Weight 98.566 kg Patient is awake, comfortable, no acute distress Alert oriented x 3 Examination of the heart S1 and S2 Examination of the lungs bilateral breath sounds are heard Abdomen is soft nontender obese Examination of lower extremities shows no significant edema STUDENT DRIVING INSTRUCTOR exam grossly intact Results - Lab Results Most recent lab results Calcium 8.3 mg/dL (8.4-10.2) L 09/23/23 10:44 Magnesium 1.8 mg/dL (1.6-2.3) 09/22/23 05:28 09/22/23 05:28 09/23/23 10:44 Assessment and Plan Assessment: 1. Acute kidney injury mostly ATN associated with hypotension in the setting of use of NAYE inhibitor's. Patient also received IV contrast on 09/22/2023. Renal function was likely due to urinary further over the next few days. Agree with discontinuation of NAYE inhibitor's. Rule out urine retention. Continue with IV fluids. 2. Chronic kidney disease and Stage IIIa with baseline creatinine around 1.3 mg/dL secondary to nephrosclerosis. Previous UA in 2019 showed no proteinuria 3. Non-ST elevation [place] status postcardiac catheterization on 09/22/2023 and stent placement to left circumflex 4. Hyperkalemia associated with acute kidney injury and metabolic acidosis. Rule out urine retention 5. Nongap metabolic acidosis associated with acute kidney injury Plan: Continue IV fluids Changed to IV bicarb Check bladder scan to rule out urine retention Check UA Check ultrasound of the kidneys Agree with holding NAYE inhibitor's for now Repeat labs in a.m. and avoid any other nephrotoxic agents. Thank you for the consultation. We will continue to follow the patient with you during her hospitalization
[2023-09-23] MEDS: HEPARIN SODIUM,PORCINE 5,000 UNIT/ML 1 ML VIAL SQ SCH (23:11)
[2023-09-23 23:29] LABS: Appearance,Urine Clear (Clear); Bacteria,Urine Rare /hpf; Bilirubin,Urine Negative (Negative); Blood,Urine Moderate (Negative); Color,Urine Yellow; Glucose,Urine (UA) Negative (Negative); Ketones,Urine Negative (Negative); Leukocyte Esterase,Urine Negative (Negative); Nitrite,Urine Negative (Negative); Protein,Urine Trace (Negative); RBC,Urine 9 /hpf (0-5); Squamous Epithelial Cell,Urine <1 /hpf (0-4); Urobilinogen,Urine <2.0 mg/dL (<2.0); WBC,Urine 1 /hpf (0-5)
[2023-09-23 23:34] LABS: Specific Gravity,Urine >1.050 (1.001-1.035)
[2023-09-24 06:08] LABS: Glucose,Whole Blood 193 mg/dL (70-110)
[2023-09-24 09:23] LABS: Basophils % (A) 0 %; Eosinophils % (A) 0 %; HCT 31.4 % (34.0-46.0); HGB 10.7 gm/dL (11.4-16.0); Lymphocytes # (A) 0.8 k/uL (1.0-4.8); Lymphocytes % (A) 15 %; MCH 32.4 pg (25.0-35.0); MCHC 34.1 g/dL (31.0-37.0); MCV 95.1 fL (80.0-100.0); Mean Platelet Volume 8.3; Monocytes # (A) 0.6 k/uL (0-1.0); Monocytes % (A) 11 %; Neutrophils # (A) 3.7 k/uL (1.3-7.7); Neutrophils % (A) 71 %; Platelet Count 176 k/uL (150-450); RDW 14.5 % (11.5-15.5); WBC 5.2 k/uL (3.8-10.6)
--- NOTE | 2023-09-24 09:25 | P.PN ---
Subjective This is a pleasant 78 years old female with past medical history of recurrent DVT s/p IVC filter on Eliquis at home, coronary artery disease, diabetes mellitus, hypertension, hyperlipidemia, GI bleed. Patient presents because of chest pain which she has been having on and off since last [place] however since yesterday the chest pain was severe 10/10, in the middle of the chest nonradiating associated with some dyspnea and little cough. Patient received morphine in the emergency room and her chest pain now down to /10 Also she vomited once in the ambulance but she has no abdominal pain and her bowel movement feels fine Patient walks little bit at baseline because of her neuropathy. She denies urinary symptoms, no dysuria or urgency No headache dizziness weakness or numbness Patient says she was taking her Eliquis at home to last night when she got sick and came to emergency room Patient denies smoking or alcohol or illicit drugs. Patient is hemodynamically stable increased oxygen saturating 94% on 2 L oxygen via nasal cannula She has unremarkable CBC, INR 1.0, creatinine slightly up 1.3, unknown baseline but she has reading from 2021 as 2.1. Magnesium low 1.5 Troponin is elevated 0.06 Lipase is negative at 199 EKG showing sinus rhythm at 70/min, depression on V2-V6 but this is also seen in old EKG Chest x-ray is negative for acute process 09/22/2023 Patient awake and alert Patient remains on the same treatment No new complaints She is going for cardiac cath today Monitor glucose and creatinine and potassium level 09/23/2023 Patient complains from mild pain. She looks tired little bit. Also patient had low-grade temperature 100.3 x 1 most likely reactive, no evidence of infection currently no leukocytosis. We will check labs and chest x-ray in the morning Also patient has worsening creatinine was 1.3 on admission went up to 1.9, with mild hyperkalemia. Will put on low-dose potassium diet. Hold lisinopril continue with IV fluid. [employer] Collections Curator consulted. Cardiology on the case. Heparin drip discontinued 09/24/2023 Patient awake alert at baseline, not confused, show she has some coughing but no dyspnea however she stays in bed no chest pain. No urinary complaints. No abdominal pain or vomiting. Labs from today are pending but vitals are stable Chest x-ray and renal ultrasound ordered and pending Patient remains on metoprolol 12.5 mg lowered from yesterday and bicarb drip at 80 mL/h. Currently on she is on dual antiplatelet therapy with aspirin and Plavix and subcutaneous heparin Lisinopril remains on hold Review of systems CONSTITUTIONAL: No fever, no malaise, no fatigue. HEENT: No recent visual problems or hearing problems. Denied any sore throat. HEMATOLOGICAL: Denies any bleeding or petechiae. GENITOURINARY: Denies any burning micturition, frequency, or urgency. MUSCULOSKELETAL/RHEUMATOLOGICAL: Denies any joint pain, swelling, or any muscle pain. ENDOCRINE: Denies any polyuria or polydipsia. Active Medications Generic Name Dose Route Start Last Admin Trade Name Freq PRN Reason Stop Dose Admin Al Hydroxide/Mg Hydroxide 30 ml 09/22/23 13:44 Mag Hydrox/Al Hydrox/Simeth 30 Ml Cup PO Q4HR PRN Heartburn Allopurinol 100 mg 09/21/23 21:00 09/23/23 19:45 Allopurinol 100 Mg Tab PO 100 mg HS [facility] Administration Alprazolam 0.25 mg 09/21/23 14:21 09/22/23 05:27 Alprazolam 0.25 Mg Tab PO 0.25 mg Q6HR PRN Administration Mild Anxiety Alprazolam 0.5 mg 09/21/23 14:21 Alprazolam 0.5 Mg Tab PO Q6HR PRN Moderate Anxiety Aspirin 81 mg 09/21/23 17:30 09/23/23 17:16 Aspirin 81 Mg PO 81 mg W/SUPPER [facility] Administration Atorvastatin Calcium 80 mg 09/21/23 21:00 09/23/23 19:45 Atorvastatin 80 Mg Tab PO 80 mg HS [facility] Administration Atropine Sulfate 0.5 mg 09/22/23 13:44 Atropine Sulfate 0.1 Mg/Ml 10ml Syringe IV ONCE PRN Symptomatic Bradycardia Clopidogrel Bisulfate 75 mg 09/23/23 09:00 09/24/23 08:48 Clopidogrel 75 Mg Tab PO 75 mg DAILY [facility] Administration Protocol Dextrose/Water 25 ml 09/21/23 08:02 Dextrose 50% Syringe 50 Ml IVP PER PROTOCOL PRN Hypoglycemia Protocol Dextrose/Water 50 ml 09/21/23 08:02 Dextrose 50% Syringe 50 Ml IVP PER PROTOCOL PRN Hypoglycemia Protocol Heparin Sodium (Porcine) 5,000 unit 09/23/23 21:00 09/24/23 08:48 Heparin Sodium,Porcine 5,000 Unit/Ml 1 Ml Vial SQ 5,000 unit Q12HR [facility] Administration Sodium Bicarbonate 150 ml/ 1,150 mls @ 80 mls/hr 09/23/23 14:00 09/24/23 03:49 Dextrose/Water IV 80 mls/hr .[id number] [facility] Administration Insulin Aspart 0 unit 09/21/23 12:30 09/24/23 06:31 Insulin Aspart (Novolog) 100 Unit/Ml Vial SQ 10 unit ACHS [facility] Administration Protocol Insulin Aspart 10 unit 09/21/23 12:30 09/24/23 06:31 Insulin Aspart (Novolog) 100 Unit/Ml Vial SQ Not Given AC-TID [facility] Insulin Detemir 50 unit 09/21/23 21:00 09/23/23 21:33 Insulin Detemir (Levemir) 100 Unit/Ml Syr SQ Not Given HS [facility] Isosorbide Mononitrate 60 mg 09/21/23 17:30 09/23/23 17:16 Isosorbide Mononitrate Er 60 Mg Tab.Er.24h PO 60 mg W/SUPPER [facility] Administration Latanoprost 1 drops 09/21/23 21:00 09/23/23 19:46 Latanoprost 0.005% Ophth Drops 2.5 Ml Btl BOTH EYES 1 drops HS [facility] Administration Magnesium Oxide 400 mg 09/21/23 16:00 09/24/23 08:48 Magnesium Oxide 400 Mg Tab PO 400 mg TID [facility] Administration Metoprolol Tartrate 12.5 mg 09/23/23 21:00 09/24/23 08:47 Metoprolol Tartrate 12.5 Mg Tab PO 12.5 mg BID [facility] Administration Miscellaneous Information 1 each 09/21/23 09:06 Magnesium Replacement Protocol 1 Each Misc MISCELLANE DAILY PRN Per Protocol Protocol Miscellaneous Information 1 each 09/22/23 13:44 Rx Info: Iv Contrast Was Given 1 Each Misc MISCELLANE 09/24/23 13:44 DAILY PRN Per Protocol Morphine Sulfate 4 mg 09/21/23 01:41 09/21/23 14:52 Morphine Sulfate 4 Mg/Ml Syringe IV 4 mg Q4HR PRN Administration Severe Pain (Scale 7 to 10) Naloxone HCl 0.2 mg 09/21/23 01:36 Naloxone 0.4 Mg/Ml 1 Ml Vial IV Q2M PRN Opioid Reversal Nitroglycerin 0.4 mg 09/22/23 13:44 Nitroglycerin Sl Tabs 0.4 Mg Tab SUBLINGUAL Q5M PRN Chest Pain Pantoprazole Sodium 40 mg 09/23/23 07:30 09/24/23 06:31 Pantoprazole 40 Mg Tablet PO 40 mg [id number] [facility] Administration Zolpidem Tartrate 5 mg 09/22/23 13:44 Zolpidem 5 Mg Tab PO HS PRN Insomnia Objective - Vital Signs Vital signs: Vital Signs Temp 98.7 F 09/24/23 08:00 Pulse 77 09/24/23 08:00 Resp 20 09/24/23 08:00 BP 144/84 09/24/23 08:00 Pulse Ox 93 L 09/24/23 08:00 FiO2 Intake & Output 09/23/23 09/24/23 09/24/23 18:59 06:59 18:59 Output Total 300 Balance -300 Weight 98.566 kg Output: Urine 300 Other: Voiding Method External Catheter External Catheter - Exam GENERAL: The patient is alert and oriented x3, not in any acute distress. Well developed, well nourished. HEENT: Pupils are round and equally reacting to light. EOMI. No scleral icterus. No conjunctival pallor. Normocephalic, atraumatic. No pharyngeal erythema. No thyromegaly. CARDIOVASCULAR: S1 and S2 present. No murmurs, rubs, or gallops. PULMONARY: Chest is clear to auscultation, no wheezing , no crackles. ABDOMEN: Soft, nontender, nondistended, normoactive bowel sounds. No palpable organomegaly. MUSCULOSKELETAL: No joint swelling or deformity. EXTREMITIES: No cyanosis, clubbing, or pedal edema. NEUROLOGICAL: Gross neurological examination did not reveal any focal deficits. SKIN: No rashes. no petechiae. - Labs CBC & Chem 7: 09/24/23 08:30 09/23/23 10:44 Labs: Abnormal Lab Results - Last 24 Hours (Table) 09/23/23 09/23/23 09/23/23 Range/Units 10:44 17:10 20:28 RBC (3.80-5.40) m/uL Hgb (11.4-16.0) gm/dL Hct (34.0-46.0) % Lymphocytes # (1.0-4.8) k/uL Sodium 132 L (137-145) mmol/L Potassium 5.5 H (3.5-5.1) mmol/L Chloride 108 H (98-107) mmol/L Carbon Dioxide 16 L (22-30) mmol/L BUN 50 H (7-17) mg/dL Creatinine 1.92 H (0.52-1.04) mg/dL POC Glucose (mg/dL) 120 H 130 H (70-110) mg/dL Calcium 8.3 L (8.4-10.2) mg/dL Ur Specific [place] (1.001-1.035) Urine Protein (Negative) Urine Blood (Negative) Urine RBC (0-5) /hpf Urine Bacteria (None) /hpf 09/23/23 09/24/23 09/24/23 Range/Units 23:16 06:07 08:30 RBC 3.30 L (3.80-5.40) m/uL Hgb 10.7 L (11.4-16.0) gm/dL Hct 31.4 L (34.0-46.0) % Lymphocytes # 0.8 L (1.0-4.8) k/uL Sodium (137-145) mmol/L Potassium (3.5-5.1) mmol/L Chloride (98-107) mmol/L Carbon Dioxide (22-30) mmol/L BUN (7-17) mg/dL Creatinine (0.52-1.04) mg/dL POC Glucose (mg/dL) 193 H (70-110) mg/dL Calcium (8.4-10.2) mg/dL Ur Specific [place] >1.050 H (1.001-1.035) Urine Protein Trace H (Negative) Urine Blood Moderate H (Negative) Urine RBC 9 H (0-5) /hpf Urine Bacteria Rare H (None) /hpf Assessment and Plan Assessment: Chest pain with elevated troponin suspicious for non-STEMI in view of her history of coronary artery disease Mild acute kidney injury on chronic kidney disease stage II-III with mild hyperkalemia Diabetes mellitus Hyperlipidemia Hypertension History of GERD Obesity with BMI 36.2 on admission Plan: pt is worsening creatinine , hold lisinopril and start sodium bicarb heparin drip discontinued Continue with aspirin 81 mg which is a home medication. Continue with Lipitor and Plavix per cut off saw operator Cardiology consult Labs and medication were reviewed.. Continue same treatment. Continue with symptomatic treatment. Resume home medication. Monitor labs and vitals. DVT and GI prophylaxis. Further recommendations as per clinical course of the patient DVT prophylaxis: heparin GI Prophylaxis: Pepcid PT/OT: Pending Prognosis is guarded
[2023-09-24 09:34] LABS: African American GFR (CKD) 41 (>60 ml/min/1.73 sqM); Anion Gap 7 mmol/L; Blood Urea Nitrogen 40 mg/dL (7-17); Calcium 8.4 mg/dL (8.4-10.2); Carbon Dioxide 23 mmol/L (22-30); Chloride 102 mmol/L (98-107); Glucose 148 mg/dL (74-99); Non-African American GFR(CKD) 35 (>60 ml/min/1.73 sqM); Potassium 4.5 mmol/L (3.5-5.1); Sodium 132 mmol/L (137-145)
[2023-09-24 09:39] VITALS: RESP 20
--- NOTE | 2023-09-24 11:07 | XR ---
EXAMINATION TYPE: XR chest 1V DATE OF EXAM: 09/24/2023 COMPARISON: 09/21/2023 HISTORY: 78 year-old female shortness of breath TECHNIQUE: Single frontal view of the chest is obtained. FINDINGS: Low lung volume is of current vascular markings. Heart normal size. Some strandy atelectas is in the lower lungs. Central interstitial thickening and mild peribronchial cuffing is noted. Other jj, no consolidation or pleural effusion. IMPRESSION: Hypoventilatory changes with interstitial density that may reflect bronchitis or asthma. Pulmonary vascular congestion is also possible but less likely given the lack of cardiomegaly.
[2023-09-24 11:09] LABS: Basophils % (A) 1 %; Eosinophils % (A) 0 %; HCT 32.2 % (34.0-46.0); HGB 10.8 gm/dL (11.4-16.0); Lymphocytes # (A) 0.9 k/uL (1.0-4.8); Lymphocytes % (A) 17 %; MCH 31.7 pg (25.0-35.0); MCHC 33.5 g/dL (31.0-37.0); MCV 94.7 fL (80.0-100.0); Mean Platelet Volume 8.7; Monocytes # (A) 0.6 k/uL (0-1.0); Monocytes % (A) 11 %; Neutrophils # (A) 3.5 k/uL (1.3-7.7); Neutrophils % (A) 68 %; Platelet Count 173 k/uL (150-450); RDW 14.4 % (11.5-15.5); WBC 5.2 k/uL (3.8-10.6)
[2023-09-24 11:41] LABS: African American GFR (CKD) 41 (>60 ml/min/1.73 sqM); Anion Gap 1 mmol/L; Blood Urea Nitrogen 41 mg/dL (7-17); Calcium 8.3 mg/dL (8.4-10.2); Carbon Dioxide 29 mmol/L (22-30); Chloride 103 mmol/L (98-107); Glucose 147 mg/dL (74-99); Non-African American GFR(CKD) 35 (>60 ml/min/1.73 sqM); Potassium 4.6 mmol/L (3.5-5.1); Sodium 133 mmol/L (137-145)
[2023-09-24 11:51] LABS: Glucose,Whole Blood 160 mg/dL (70-110)
--- NOTE | 2023-09-24 12:21 | P.PN ---
Subjective HISTORY OF PRESENT ILLNESS: This is a 78-year-old female patient of Dr. Judd with past medical history of diabetes, hypertension, hyperlipidemia, obesity, DVT in the right lower extremity, coronary artery disease with stenting and history of inferior ST elevated myocardial infarction in 2019. We have been asked to evaluate the patient for acute chest pain and non-ST elevated AL. Patient is tentatively scheduled for cardiac catheterization on 10/11. Patient states that she has midsternal chest pain on and off for the past few months and seems to be worsening. She denies any radiation of the pain. She did have some nausea today and headache. Patient seen today in the emergency center waiting for bed on the observation unit. She has been started on heparin drip and home cardiac medications. EKG sinus rhythm with right bundle branch block Chest x-ray: Low lung volumes. No focal consolidation. CBC within normal limits. INR 1. Sodium 137, potassium 5.6, chloride 106, CO2 22, BUN 37 creatinine 1.49. Glucose 149. Troponins 0.064 and 3.16. Magnesium 1.5. Liver function test are normal. proBNP 872. Lipase 199. Home cardiac medications: Eliquis 5 mg twice daily, aspirin 81 mg daily, atorvastatin 80 mg at bedtime, Lasix 20 mg daily as needed, Imdur 60 mg with supper, lisinopril 10 mg daily, magnesium oxide 400 mg 3 times daily, Lopressor 25 mg twice daily, Nitrostat as needed, Ranexa 500 mg twice daily Cardiac catheterization performed 12/08/2018 revealed acutely occluded right coronary artery and long stented segment, calcified coronary arteries, mild disease in the LAD and left circumflex. Subsequently, patient underwent PCI with recanalization a long stented segment of the right coronary artery. Echocardiogram performed 12/09/2018 revealed EF 55 to 60%, mild concentric left hypertrophy, mild mitral digitation, mild tricuspid regurgitation. 09/23/2023 Patient is status postcardiac catheterization yesterday with Dr. Judd revealing calcified coronary arteries. Severe stenosis in the proximal tortuous left circumflex. Mild to moderate disease in proximal and mid LAD. Chronically occluded RCA with collaterals from left system. Patient underwent stenting of the proximal left circumflex. Patient examined this morning at the bedside. She denies chest pain or pressure. She denies shortness of breath. Vital signs are stable. Creatinine worsened today at 1.92. 09/24/2023 Patient examined this morning at the bedside. Patient denies chest pain or pressure. Patient denies shortness of breath. Creatinine today 1.4 PHYSICAL EXAM: VITAL SIGNS: Reviewed. GENERAL: Well-developed in no acute distress. NECK: Supple. No JVD or thyromegaly LUNGS: Respirations even and unlabored. Lungs essentially clear to auscultation bilaterally. HEART: Regular rate and rhythm. S1 and S2 heard. EXTREMITIES: Normal range of motion. No clubbing or cyanosis. Peripheral pulses intact. No lower extremity edema ASSESSMENT: Non-ST elevated myocardial infarction, status post stenting of the proximal left circumflex Acute kidney injury Hyperkalemia History of coronary artery disease with previous stenting Hypertension Hyperlipidemia History of inferior ST elevated AL in 2019 Obesity History of DVT PLAN: Continue dual antiplatelet therapy with aspirin and Plavix Resume Eliquis. Continue triple therapy at this time. Will DC aspirin in 1 week Continue high intensity statin May resume Lisinopril upon discharge Patient to have BMP drawn outpatient in 1 week Patient is stable for discharge home today from a cardiac standpoint Nurse practitioner note has been reviewed by physician. Signing provider agrees with the documented findings, assessment, and plan of care documented by TUMBLER DYEING MACHINE OPERATOR as a scribe. Objective - Vital Signs Vital signs: Vital Signs Temp 98.1 F 09/24/23 11:43 Pulse 71 09/24/23 11:43 Resp 20 09/24/23 11:43 BP 156/78 09/24/23 11:43 Pulse Ox 93 L 09/24/23 11:43 FiO2 Intake & Output 09/23/23 09/24/23 09/24/23 18:59 06:59 18:59 Output Total 300 Balance -300 Weight 98.566 kg Output: Urine 300 Other: Voiding Method External Catheter External Catheter External Catheter - Labs CBC & Chem 7: 09/24/23 10:54 09/24/23 10:54 Labs: Abnormal Lab Results - Last 24 Hours (Table) 09/23/23 09/23/23 09/23/23 Range/Units 17:10 20:28 23:16 RBC (3.80-5.40) m/uL Hgb (11.4-16.0) gm/dL Hct (34.0-46.0) % Lymphocytes # (1.0-4.8) k/uL Sodium (137-145) mmol/L BUN (7-17) mg/dL Creatinine (0.52-1.04) mg/dL Glucose (74-99) mg/dL POC Glucose (mg/dL) 120 H 130 H (70-110) mg/dL Calcium (8.4-10.2) mg/dL Ur Specific [place] >1.050 H (1.001-1.035) Urine Protein Trace H (Negative) Urine Blood Moderate H (Negative) Urine RBC 9 H (0-5) /hpf Urine Bacteria Rare H (None) /hpf 09/24/23 09/24/23 09/24/23 Range/Units 06:07 08:30 08:30 RBC 3.30 L (3.80-5.40) m/uL Hgb 10.7 L (11.4-16.0) gm/dL Hct 31.4 L (34.0-46.0) % Lymphocytes # 0.8 L (1.0-4.8) k/uL Sodium 132 L (137-145) mmol/L BUN 40 H (7-17) mg/dL Creatinine 1.43 H (0.52-1.04) mg/dL Glucose 148 H (74-99) mg/dL POC Glucose (mg/dL) 193 H (70-110) mg/dL Calcium (8.4-10.2) mg/dL Ur Specific [place] (1.001-1.035) Urine Protein (Negative) Urine Blood (Negative) Urine RBC (0-5) /hpf Urine Bacteria (None) /hpf 09/24/23 09/24/23 09/24/23 Range/Units 10:54 10:54 11:44 RBC 3.40 L (3.80-5.40) m/uL Hgb 10.8 L (11.4-16.0) gm/dL Hct 32.2 L (34.0-46.0) % Lymphocytes # 0.9 L (1.0-4.8) k/uL Sodium 133 L (137-145) mmol/L BUN 41 H (7-17) mg/dL Creatinine 1.44 H (0.52-1.04) mg/dL Glucose 147 H (74-99) mg/dL POC Glucose (mg/dL) 160 H (70-110) mg/dL Calcium 8.3 L (8.4-10.2) mg/dL Ur Specific [place] (1.001-1.035) Urine Protein (Negative) Urine Blood (Negative) Urine RBC (0-5) /hpf Urine Bacteria (None) /hpf
--- NOTE | 2023-09-24 12:33 | P.PN ---
Subjective Patient is seen for follow-up for acute kidney injury. Renal function has improved. Serum creatinine decreased to 1.4 from 1.9. No significant complaints. Blood pressure is not low anymore. Good urine output. Objective - Vital Signs Vital signs: Vital Signs Temp 98.1 F 09/24/23 11:43 Pulse 71 09/24/23 11:43 Resp 20 09/24/23 11:43 BP 156/78 09/24/23 11:43 Pulse Ox 93 L 09/24/23 11:43 FiO2 Intake & Output 09/23/23 09/24/23 09/24/23 18:59 06:59 18:59 Output Total 300 Balance -300 Weight 98.566 kg Output: Urine 300 Other: Voiding Method External Catheter External Catheter External Catheter - Exam Patient is awake, comfortable, no acute distress Alert oriented x 3 Examination of the heart S1 and S2 Examination of the lungs bilateral breath sounds are heard Abdomen is soft nontender obese Examination of lower extremities shows no significant edema CLINICAL PROFESSOR exam grossly intact - Labs CBC & Chem 7: 09/24/23 10:54 09/24/23 10:54 Labs: Abnormal Lab Results - Last 24 Hours (Table) 09/23/23 09/23/23 09/23/23 Range/Units 17:10 20:28 23:16 RBC (3.80-5.40) m/uL Hgb (11.4-16.0) gm/dL Hct (34.0-46.0) % Lymphocytes # (1.0-4.8) k/uL Sodium (137-145) mmol/L BUN (7-17) mg/dL Creatinine (0.52-1.04) mg/dL Glucose (74-99) mg/dL POC Glucose (mg/dL) 120 H 130 H (70-110) mg/dL Calcium (8.4-10.2) mg/dL Ur Specific [place] >1.050 H (1.001-1.035) Urine Protein Trace H (Negative) Urine Blood Moderate H (Negative) Urine RBC 9 H (0-5) /hpf Urine Bacteria Rare H (None) /hpf 09/24/23 09/24/23 09/24/23 Range/Units 06:07 08:30 08:30 RBC 3.30 L (3.80-5.40) m/uL Hgb 10.7 L (11.4-16.0) gm/dL Hct 31.4 L (34.0-46.0) % Lymphocytes # 0.8 L (1.0-4.8) k/uL Sodium 132 L (137-145) mmol/L BUN 40 H (7-17) mg/dL Creatinine 1.43 H (0.52-1.04) mg/dL Glucose 148 H (74-99) mg/dL POC Glucose (mg/dL) 193 H (70-110) mg/dL Calcium (8.4-10.2) mg/dL Ur Specific [place] (1.001-1.035) Urine Protein (Negative) Urine Blood (Negative) Urine RBC (0-5) /hpf Urine Bacteria (None) /hpf 09/24/23 09/24/23 09/24/23 Range/Units 10:54 10:54 11:44 RBC 3.40 L (3.80-5.40) m/uL Hgb 10.8 L (11.4-16.0) gm/dL Hct 32.2 L (34.0-46.0) % Lymphocytes # 0.9 L (1.0-4.8) k/uL Sodium 133 L (137-145) mmol/L BUN 41 H (7-17) mg/dL Creatinine 1.44 H (0.52-1.04) mg/dL Glucose 147 H (74-99) mg/dL POC Glucose (mg/dL) 160 H (70-110) mg/dL Calcium 8.3 L (8.4-10.2) mg/dL Ur Specific [place] (1.001-1.035) Urine Protein (Negative) Urine Blood (Negative) Urine RBC (0-5) /hpf Urine Bacteria (None) /hpf Assessment and Plan Assessment: 1. Acute kidney injury mostly ATN associated with hypotension in the setting of use of NAYE inhibitor's. Patient also received IV contrast on 09/22/2023. Renal function was likely due to urinary further over the next few days. Agree with discontinuation of NAYE inhibitor's. No urine retention. Status post IV fluids 2. Chronic kidney disease and Stage IIIa with baseline creatinine around 1.3 mg/dL secondary to nephrosclerosis. Previous UA in 2019 showed no proteinuria 3. Non-ST elevation IN status postcardiac catheterization on 09/22/2023 and stent placement to left circumflex 4. Hyperkalemia associated with acute kidney injury and metabolic acidosis. 5. Nongap metabolic acidosis associated with acute kidney injury Plan: Okay to discharge from nephrology standpoint Follow-up in the office in about 2 weeks Can resume NAYE inhibitor's as outpatient.
--- NOTE | 2023-09-24 12:51 | US ---
EXAMINATION TYPE: US kidneys/renal and bladder DATE OF EXAM: 09/24/2023 COMPARISON: NONE CLINICAL INDICATION: Female, 78 years old with history of jael; JAEL, large habitus, COPD, CHF EXAM MEASUREMENTS: Right Kidney: 8.3 x 2.9 x 4.0 cm Left Kidney: not seen Right Kidney: small in size. No evident hydronephrosis. Left Kidney: unable to visualize after multiple attempts Bladder: not distended Incidental echogenic hepatic parenchyma suggesting fatty infiltration. IMPRESSION: 1. Small size of the right kidney. There may be underlying chronic medical renal disease. No evident hydronephrosis here. 2. Unable to visualize the left kidney after multiple attempts. 3. Nondistention of the bladder limits its evaluation. 4. Findings of hepatic steatosis. Appropriate clinical management is advised.
[2023-09-24 16:29] LABS: Glucose,Whole Blood 185 mg/dL (70-110)
[2023-09-24 20:24] LABS: Glucose,Whole Blood 159 mg/dL (70-110)
[2023-09-24] MEDS: APIXABAN 5 MG TAB PO SCH (20:39)
[2023-09-25 05:01] VITALS: PULSE 78
[2023-09-25 06:08] LABS: Glucose,Whole Blood 148 mg/dL (70-110)
[2023-09-25 08:57] VITALS: BP 152/69; TEMP 98.3
[2023-09-25 09:15] LABS: African American GFR (CKD) 49 (>60 ml/min/1.73 sqM); Anion Gap 6 mmol/L; Blood Urea Nitrogen 34 mg/dL (7-17); Calcium 8.3 mg/dL (8.4-10.2); Carbon Dioxide 28 mmol/L (22-30); Chloride 98 mmol/L (98-107); Glucose 149 mg/dL (74-99); Non-African American GFR(CKD) 43 (>60 ml/min/1.73 sqM); Sodium 132 mmol/L (137-145)
[2023-09-25 09:27] LABS: Basophils % (A) 0 %; Eosinophils % (A) 0 %; HCT 30.7 % (34.0-46.0); HGB 10.6 gm/dL (11.4-16.0); Lymphocytes # (A) 0.8 k/uL (1.0-4.8); Lymphocytes % (A) 20 %; MCH 32.4 pg (25.0-35.0); MCHC 34.4 g/dL (31.0-37.0); MCV 94.1 fL (80.0-100.0); Mean Platelet Volume 8.7; Monocytes # (A) 0.5 k/uL (0-1.0); Monocytes % (A) 12 %; Neutrophils # (A) 2.7 k/uL (1.3-7.7); Neutrophils % (A) 66 %; Platelet Count 174 k/uL (150-450); RBC 3.27 m/uL (3.80-5.40); RDW 14.3 % (11.5-15.5); WBC 4.1 k/uL (3.8-10.6)
[2023-09-25] MEDS ORDERED: guaiFENesin-DM 100-10MG/5ML 10 ML CUP PO PRN (10:06)
[2023-09-25] MEDS: AMOXIC-POT CLAV 875-125MG 1 EACH TAB PO SCH (10:25)
--- NOTE | 2023-09-25 11:32 | P.PN ---
Subjective HISTORY OF PRESENT ILLNESS: This is a 78-year-old female patient of Dr. Judd with past medical history of diabetes, hypertension, hyperlipidemia, obesity, DVT in the right lower extremity, coronary artery disease with stenting and history of inferior ST elevated myocardial infarction in 2019. We have been asked to evaluate the patient for acute chest pain and non-ST elevated [place]. Patient is tentatively scheduled for cardiac catheterization on 10/11. Patient states that she has midsternal chest pain on and off for the past few months and seems to be worsening. She denies any radiation of the pain. She did have some nausea today and headache. Patient seen today in the emergency center waiting for bed on the observation unit. She has been started on heparin drip and home cardiac medications. EKG sinus rhythm with right bundle branch block Chest x-ray: Low lung volumes. No focal consolidation. CBC within normal limits. INR 1. Sodium 137, potassium 5.6, chloride 106, CO2 22, BUN 37 creatinine 1.49. Glucose 149. Troponins 0.064 and 3.16. Magnesium 1.5. Liver function test are normal. proBNP 872. Lipase 199. Home cardiac medications: Eliquis 5 mg twice daily, aspirin 81 mg daily, atorvastatin 80 mg at bedtime, Lasix 20 mg daily as needed, Imdur 60 mg with supper, lisinopril 10 mg daily, magnesium oxide 400 mg 3 times daily, Lopressor 25 mg twice daily, Nitrostat as needed, Ranexa 500 mg twice daily Cardiac catheterization performed 12/08/2018 revealed acutely occluded right coronary artery and long stented segment, calcified coronary arteries, mild disease in the LAD and left circumflex. Subsequently, patient underwent PCI with recanalization a long stented segment of the right coronary artery. Echocardiogram performed 12/09/2018 revealed EF 55 to 60%, mild concentric left hypertrophy, mild mitral digitation, mild tricuspid regurgitation. 09/23/2023 Patient is status postcardiac catheterization yesterday with Dr. Judd revealing calcified coronary arteries. Severe stenosis in the proximal tortuous left circumflex. Mild to moderate disease in proximal and mid LAD. Chronically occluded RCA with collaterals from left system. Patient underwent stenting of the proximal left circumflex. Patient examined this morning at the bedside. She denies chest pain or pressure. She denies shortness of breath. Vital signs are stable. Creatinine worsened today at 1.92. 09/24/2023 Patient examined this morning at the bedside. Patient denies chest pain or pressure. Patient denies shortness of breath. Creatinine today 1.4 09/25/2023 Patient examined this morning at the bedside. Patient denies chest pain or pressure. She denies shortness of breath. Vital signs are stable. Creatinine today 1.4. PHYSICAL EXAM: VITAL SIGNS: Reviewed. GENERAL: Well-developed in no acute distress. NECK: Supple. No JVD or thyromegaly LUNGS: Respirations even and unlabored. Lungs essentially clear to auscultation bilaterally. HEART: Regular rate and rhythm. S1 and S2 heard. EXTREMITIES: Normal range of motion. No clubbing or cyanosis. Peripheral pulses intact. No lower extremity edema ASSESSMENT: Non-ST elevated myocardial infarction, status post stenting of the proximal left circumflex Acute kidney injury Hyperkalemia History of coronary artery disease with previous stenting Hypertension Hyperlipidemia History of inferior ST elevated [place] in 2019 Obesity History of DVT PLAN: Continue dual antiplatelet therapy with aspirin and Plavix Resume Eliquis. Continue triple therapy at this time. Will DC aspirin in 1 week Continue high intensity statin May resume Lisinopril upon discharge Patient to have BMP drawn outpatient in 1 week Patient is stable for discharge home today from a cardiac standpoint Nurse practitioner note has been reviewed by physician. Signing provider agrees with the documented findings, assessment, and plan of care documented by [employer] MACHINE OPERATOR as a scribe. Objective - Vital Signs Vital signs: Vital Signs Temp 98.3 F 09/25/23 08:36 Pulse 78 09/25/23 08:36 Resp 20 09/25/23 08:36 BP 152/69 09/25/23 08:36 Pulse Ox 91 L 09/25/23 08:36 FiO2 Intake & Output 09/24/23 09/25/23 09/25/23 18:59 06:59 18:59 Intake Total 1170 Output Total 300 250 Balance 870 -250 Intake: Intake, IV Titration 960 Amount Dextrose 5% in Water 1, 960 000 ml @ 50 mls/hr IV . Q23H CONRADO with Sodium Bicarb (1 Meq/ml) 150 ml Rx#:[id number] Oral 210 Output: Urine 300 250 Other: Voiding Method Toilet Toilet Toilet # Voids 2 0 # Bowel Movements 0 - Labs CBC & Chem 7: 09/25/23 08:26 09/25/23 08:26 Labs: Abnormal Lab Results - Last 24 Hours (Table) 09/24/23 09/24/23 09/24/23 Range/Units 10:54 11:44 16:29 RBC (3.80-5.40) m/uL Hgb (11.4-16.0) gm/dL Hct (34.0-46.0) % Lymphocytes # (1.0-4.8) k/uL Sodium 133 L (137-145) mmol/L BUN 41 H (7-17) mg/dL Creatinine 1.44 H (0.52-1.04) mg/dL Glucose 147 H (74-99) mg/dL POC Glucose (mg/dL) 160 H 185 H (70-110) mg/dL Calcium 8.3 L (8.4-10.2) mg/dL 09/24/23 09/25/23 09/25/23 Range/Units 20:22 06:06 08:26 RBC 3.27 L (3.80-5.40) m/uL Hgb 10.6 L (11.4-16.0) gm/dL Hct 30.7 L (34.0-46.0) % Lymphocytes # 0.8 L (1.0-4.8) k/uL Sodium (137-145) mmol/L BUN (7-17) mg/dL Creatinine (0.52-1.04) mg/dL Glucose (74-99) mg/dL POC Glucose (mg/dL) 159 H 148 H (70-110) mg/dL Calcium (8.4-10.2) mg/dL 09/25/23 Range/Units 08:26 RBC (3.80-5.40) m/uL Hgb (11.4-16.0) gm/dL Hct (34.0-46.0) % Lymphocytes # (1.0-4.8) k/uL Sodium 132 L (137-145) mmol/L BUN 34 H (7-17) mg/dL Creatinine 1.23 H (0.52-1.04) mg/dL Glucose 149 H (74-99) mg/dL POC Glucose (mg/dL) (70-110) mg/dL Calcium 8.3 L (8.4-10.2) mg/dL
[2023-09-25 11:56] LABS: Glucose,Whole Blood 177 mg/dL (70-110)
--- NOTE | 2023-09-25 16:13 | P.PN ---
Subjective Patient is seen for follow-up for acute kidney injury. Renal function has improved. Serum creatinine decreased to 1.2 from 1.9. No significant complaints. Blood pressure is not low anymore. Good urine output. Objective - Vital Signs Vital signs: Vital Signs Temp 98.3 F 09/25/23 08:36 Pulse 78 09/25/23 08:36 Resp 20 09/25/23 08:36 BP 152/69 09/25/23 08:36 Pulse Ox 91 L 09/25/23 08:36 FiO2 Intake & Output 09/24/23 09/25/23 09/25/23 18:59 06:59 18:59 Intake Total 1170 Output Total 300 250 Balance 870 -250 Intake: Intake, IV Titration 960 Amount Dextrose 5% in Water 1, 960 000 ml @ 50 mls/hr IV . Q23H CONRADO with Sodium Bicarb (1 Meq/ml) 150 ml Rx#:[id number] Oral 210 Output: Urine 300 250 Other: Voiding Method Toilet Toilet Toilet # Voids 2 0 2 # Bowel Movements 0 1 - Exam Patient is awake, comfortable, no acute distress Alert oriented x 3 Examination of the heart S1 and S2 Examination of the lungs bilateral breath sounds are heard Abdomen is soft nontender obese Examination of lower extremities shows no significant edema BUSINESS [employer]S ARCHITECT exam grossly intact - Labs CBC & Chem 7: 09/25/23 08:26 09/25/23 08:26 Labs: Abnormal Lab Results - Last 24 Hours (Table) 09/24/23 09/24/23 09/25/23 Range/Units 16:29 20:22 06:06 RBC (3.80-5.40) m/uL Hgb (11.4-16.0) gm/dL Hct (34.0-46.0) % Lymphocytes # (1.0-4.8) k/uL Sodium (137-145) mmol/L BUN (7-17) mg/dL Creatinine (0.52-1.04) mg/dL Glucose (74-99) mg/dL POC Glucose (mg/dL) 185 H 159 H 148 H (70-110) mg/dL Calcium (8.4-10.2) mg/dL 09/25/23 09/25/23 09/25/23 Range/Units 08:26 08:26 11:52 RBC 3.27 L (3.80-5.40) m/uL Hgb 10.6 L (11.4-16.0) gm/dL Hct 30.7 L (34.0-46.0) % Lymphocytes # 0.8 L (1.0-4.8) k/uL Sodium 132 L (137-145) mmol/L BUN 34 H (7-17) mg/dL Creatinine 1.23 H (0.52-1.04) mg/dL Glucose 149 H (74-99) mg/dL POC Glucose (mg/dL) 177 H (70-110) mg/dL Calcium 8.3 L (8.4-10.2) mg/dL Assessment and Plan Assessment: 1. Acute kidney injury mostly ATN associated with hypotension in the setting of use of NAYE inhibitor's. Patient also received IV contrast on 09/22/2023. 2. Chronic kidney disease and Stage IIIa with baseline creatinine around 1.3 mg/dL secondary to nephrosclerosis. Previous UA in 2019 showed no proteinuria 3. Non-ST elevation [place] status postcardiac catheterization on 09/22/2023 and stent placement to left circumflex 4. Hyperkalemia associated with acute kidney injury and metabolic acidosis. 5. Nongap metabolic acidosis associated with acute kidney injury Plan: Okay to discharge from nephrology standpoint Follow-up in the office in about 2 weeks Can resume NAYE inhibitor's as outpatient.
--- NOTE | 2023-09-25 22:33 | P.DS ---
Providers Date of admission: 09/21/23 01:46 Attending physician: Diane Alexis Consults: 09/21/23 01:41 Consult Physician Urgent Consulting Provider: [facility] Consult Reason/Comments: acute chest pain, nstemi Do you want consulting provider notified?: Yes 09/22/23 13:44 Consult Physician Routine Consulting Provider: Julio Cesar Dennis Consult Reason/Comments: Post Interventional Patient Do you want consulting provider notified?: Already Contacted 09/23/23 11:46 Consult Physician Urgent Consulting Provider: Reshma Brandon Consult Reason/Comments: olivia, hyperkalemia Do you want consulting provider notified?: Yes Primary care physician: [facility] Hospital Course: Diagnoses: Chest pain with elevated troponin suspicious for non-STEMI in view of her history of coronary artery disease. S/p cardiac PCI to proximal left circumflex Mild acute kidney injury on chronic kidney disease stage II-III with mild hyperkalemia resolved acute bronchitis Diabetes mellitus Hyperlipidemia Hypertension History of GERD Obesity with BMI 36.2 on admission Hospital course: This is a pleasant 78 years old female with past medical history of recurrent DVT s/p IVC filter on Eliquis at home, coronary artery disease, diabetes mellitus, hypertension, hyperlipidemia, GI bleed. Patient presents because of chest pain which she has been having on and off since last however since yesterday the chest pain was severe 10/10, on admission patient was noticed to have elevated troponin, she was diagnosed with non-STEMI and admitted with heparin drip, aspirin and cardiology consult. She underwent cardiac cath showing severe stenosis to the left circumflex artery proximally. Stent was placed successfully with reduction in the stenosis. Patient started on dual antiplatelet therapy with aspirin and Plavix with risk- benefit explained for the patient and she is agreeable. She has evidence of acute kidney injury creatinine went up to 1.9, she was treated with IV fluid and then came down creatinine 1.2 upon discharge Also patient is on manage events of dys coughing, no significant dyspnea or chest pain, chest x-ray showing bronchitis. Patient was started on Augmentin and Robitussin DM upon discharge to be continued with short course of oral antibiotics with close outpatient follow-up Other than that patient denies any change in urine or bowel habits. No other new symptoms. Patient was cleared for discharge by both nephrology and cardiology services I discussed the case also with the over the phone and he is agreeable with the plan and to discharge the patient. Problems and management plan were discussed with the patient and he verbalized understanding and acceptance Patient was found stable and can be discharged home in guarded prognosis however he needs follow-up as an outpatient. Patient was instructed to follow up with PCP Dr. Jones within one week and patient agrees Patient was instructed to follow-up with Dr. Brandon in 1 [address] Ortiz in 1 to 2 weeks and she is agreeable I discussed with the staff and recommend to help the patient make an Sooner appointment Physical exam Gen: patient is a AAOx3, no distress CVS: S1-S2, RRR, no murmur Lungs: B/L CTA, no wheezing Abdomen: soft, no distention, no tenderness, positive bowel sounds Extremity: no leg edema or induration Time spent more than 35 minutes Patient Condition at Discharge: Serious Plan - Discharge Summary Discharge Rx Participant: Yes New Discharge Prescriptions: New Amoxic-Pot Clav 875-125Mg [Augmentin 875-125] 1 each PO Q12HR 5 Days #10 tab guaiFENesin-DM 100-10MG/5ML [Robitussin DM] 10 ml PO Q6HR PRN #80 ml PRN Reason: Cough Metoprolol Tartrate [Lopressor] 12.5 mg PO BID #60 tab Clopidogrel [Plavix] 75 mg PO DAILY #30 tab Continue INSULIN LISPRO (humaLOG) [humaLOG] See Protocol SQ AC-TID PRN PRN Reason: Blood Sugar - High Atorvastatin [Lipitor] 80 mg PO HS Nitroglycerin Sl Tabs [Nitrostat] 0.4 mg SUBLINGUAL Q5M PRN #50 tab PRN Reason: Chest Pain Omeprazole 20 mg PO DAILY Cholecalciferol [Vitamin D3 (125 Mcg = 5000 Iu)] 125 mcg PO DAILY Aspirin 81 mg PO W/SUPPER allopurinoL [Zyloprim] 100 mg PO HS Cyanocobalamin (Vitamin B-12) [Vitamin B-12] 1,000 mcg PO DAILY Latanoprost [Xalatan 0.005%] 1 drop BOTH EYES HS Isosorbide Mononitrate ER [Imdur] 60 mg PO W/SUPPER Apixaban [Eliquis] 5 mg PO BID Magnesium Oxide [Magox 400] 400 mg PO TID Ranolazine [Ranexa] 500 mg PO BID Changed Insulin Degludec [Tresiba Flextouch U-200 Pen] 10 units SQ HS #8 gm Discontinued Metoprolol Tartrate [Lopressor] 25 mg PO BID INSULIN LISPRO (humaLOG) [humaLOG] 25 units SQ AC-TID Furosemide [Lasix] 20 mg PO DAILY PRN PRN Reason: Edema lisinopriL [Zestril] 10 mg PO DAILY Discharge Medication List Atorvastatin [Lipitor] 80 mg PO HS 12/08/18 [History] INSULIN LISPRO (humaLOG) [humaLOG] See Protocol SQ AC-TID PRN 12/08/18 [History] Nitroglycerin Sl Tabs [Nitrostat] 0.4 mg SUBLINGUAL Q5M PRN #50 tab 12/14/18 [Rx] Cyanocobalamin (Vitamin B-12) [Vitamin B-12] 1,000 mcg PO DAILY 12/05/20 [History] Latanoprost [Xalatan 0.005%] 1 drop BOTH EYES HS 12/05/20 [History] Omeprazole 20 mg PO DAILY 12/05/20 [History] allopurinoL [Zyloprim] 100 mg PO HS 12/05/20 [History] Apixaban [Eliquis] 5 mg PO BID 09/21/23 [History] Aspirin 81 mg PO W/SUPPER 09/21/23 [History] Cholecalciferol [Vitamin D3 (125 Mcg = 5000 Iu)] 125 mcg PO DAILY 09/21/23 [History] Isosorbide Mononitrate ER [Imdur] 60 mg PO W/SUPPER 09/21/23 [History] Magnesium Oxide [Magox 400] 400 mg PO TID 09/21/23 [History] Ranolazine [Ranexa] 500 mg PO BID 09/21/23 [History] Amoxic-Pot Clav 875-125Mg [Augmentin 875-125] 1 each PO Q12HR 5 Days #10 tab 09/25/23 [Rx] Clopidogrel [Plavix] 75 mg PO DAILY #30 tab 09/25/23 [Rx] Insulin Degludec [Tresiba Flextouch U-200 Pen] 10 units SQ HS #8 gm 09/25/23 [Rx] Metoprolol Tartrate [Lopressor] 12.5 mg PO BID #60 tab 09/25/23 [Rx] guaiFENesin-DM 100-10MG/5ML [Robitussin DM] 10 ml PO Q6HR PRN #80 ml 09/25/23 [Rx] Follow up Appointment(s)/Referral(s): Reshma Brandon MD [STAFF PHYSICIAN] - 1 Week (Office unavailable at this time; please call [facility] on Thursday to schedule follow up appointment.) Irma Judd MD [STAFF PHYSICIAN] - 10/02/23 10:00 am [facility] [NON-STAFF] - Mallory Wilder MD [Primary Care Provider] - 09/29/23 10:30 am Patient Instructions/Handouts: Acute Kidney Injury (DC), Heart Catheterization (DC) Activity/Diet/Wound Care/Special Instructions: heart healthy diet activity is restricted till you see your doctor we recommend you check your glucose 4 times per day before each meal and at bed time, keep the results in a logbook and bring it to your doctor on your appointment date if your glucose is less than 70 or more than 400 then call 911 and come to emergency room Discharge Disposition: HOME WITH HOME HEALTH SERVICES
== END 2023-09-25 12:07 | disposition home health service (06) | DRG 323 ==
LOC: EC 23:36 → 3NCARDOBS 09-21 01:46 → 1SOBS 09-21 10:49 → 3SCARD 09-21 15:58
PROVIDERS: ADMIT Hospitalist; ATTEND Hospitalist
PROC: B2111ZZ Fluoroscopy of Multiple Coronary Arteries using Low Osmolar Contrast (ICD-10-PCS; 2023-09-22)
PROC: 02F03ZZ Fragmentation in Coronary Artery, One Artery, Percutaneous Approach (ICD-10-PCS; principal; 2023-09-22 07:30)
PROC: 027135Z Dilation of Coronary Artery, Two Arteries with Two Drug-eluting Intraluminal Devices, Percutaneous Approach (ICD-10-PCS; 2023-09-22 07:30)
PROC: B240ZZ3 Ultrasonography of Single Coronary Artery, Intravascular (ICD-10-PCS; 2023-09-22 07:30)
PROC: 4A023N7 Measurement of Cardiac Sampling and Pressure, Left Heart, Percutaneous Approach (ICD-10-PCS; 2023-09-22 07:30)
DX: I21.3 ST elevation (STEMI) myocardial infarction of unspecified site (principal); N17.0 Acute kidney failure with tubular necrosis; E87.20 Acidosis, unspecified; I45.2 Bifascicular block; E11.22 Type 2 diabetes mellitus with diabetic chronic kidney disease; E11.42 Type 2 diabetes mellitus with diabetic polyneuropathy; I25.82 Chronic total occlusion of coronary artery; I95.9 Hypotension, unspecified; I25.119 Atherosclerotic heart disease of native coronary artery with unspecified angina pectoris; E66.9 Obesity, unspecified; I12.9 Hypertensive chronic kidney disease with stage 1 through stage 4 chronic kidney disease, or unspecified chronic kidney disease; N18.31 Chronic kidney disease, stage 3a; Z79.4 Long term (current) use of insulin; J20.9 Acute bronchitis, unspecified; E78.5 Hyperlipidemia, unspecified; K21.9 Gastro-esophageal reflux disease without esophagitis; E87.5 Hyperkalemia; T44.5X5A Adverse effect of predominantly beta-adrenoreceptor agonists, initial encounter; Z68.36 Body mass index [BMI] 36.0-36.9, adult; Z95.828 Presence of other vascular implants and grafts; Z86.718 Personal history of other venous thrombosis and embolism; Z87.19 Personal history of other diseases of the digestive system; Z95.5 Presence of coronary angioplasty implant and graft; Z79.899 Other long term (current) drug therapy; Z79.01 Long term (current) use of anticoagulants; Z79.82 Long term (current) use of aspirin; Z79.02 Long term (current) use of antithrombotics/antiplatelets; Z88.8 Allergy status to other drugs, medicaments and biological substances; Z88.1 Allergy status to other antibiotic agents; I25.2 Old myocardial infarction
CPT/HCPCS: 36415; 71045; 71046; 76770; 80048; 80053; 81001; 83036; 83690; 83735; 83880; 84484; 85025; 85610; 85730; 92972; 92978; 93005; 93306; 93458; 96365; 96366; 96367; 96375; 96376; 99285; 99291

== ENCOUNTER → 2023-12-25 | Outpatient (CLI) | payer MEDICARE ==
[2023-12-25 17:47] LABS: ALT 18 U/L (8-44); AST 24 U/L (13-35); Albumin 4.5 g/dL (3.8-4.9); Albumin/Globulin Ratio 1.36 Ratio (1.60-3.17); Alkaline Phosphatase 101 U/L (41-126); Blood Urea Nitrogen 32.1 mg/dL (9.0-27.0); Calcium 9.9 mg/dL (8.7-10.3); Carbon Dioxide 19.8 mmol/L (21.6-31.8); Chloride 105 mmol/L (96-109); Globulin 3.3 g/dL (1.6-3.3); Glucose 111 mg/dL (70-110); Potassium 5.7 mmol/L (3.5-5.5); Sodium 139 mmol/L (135-145); Total Bilirubin 0.3 mg/dL (0.3-1.2); Total Protein 7.8 g/dL (6.2-8.2)
== END | disposition home or self-care (01) ==
LOC: LABWHC1 09:54
PROVIDERS: ATTEND Internal Medicine Nephrology
DX: N18.32 Chronic kidney disease, stage 3b (principal)
CPT/HCPCS: 36415; 80053

== ENCOUNTER → 2023-12-25 | Outpatient (CLI) | payer MEDICARE ==
--- NOTE | 2023-12-25 09:39 | MM ---
Reason for Exam: Clinical finding. Last mammogram was performed 5 year(s) and 8 month(s) ago. Indicated Problems: Other indicated problem of the right side for 1 Month(s) : burning sensation rt breast. Patient History: Menarche at age 14. First Full-Term at age 28. Left ovary removed at age 46. Right ovary removed at age 46. Hysterectomy at age 46. Postmenopausal. Risk Values: Catherine 5 year model risk: 1.9%. NCI Lifetime model risk: 3.7%. Prior Study Comparison: 06/15/2015 Bilateral MG screening mammo w CAD - 2, Unknown. 05/05/2018 Bilateral MG screening mammo w CAD - 2, Unknown. Tissue Density: There are scattered areas of fibroglandular density. Findings: Analyzed By CAD. Redemonstrated are extensive bilateral vascular and secretory calcifications. No significant change from prior. Overall Assessment: Incomplete: need additional imaging evaluation, BI-RAD 0 Management: Diagnostic Breast Ultrasound of the right breast. For burning sensation. Electronically signed and approved by: Andrea Giron M.D. Radiologist
--- NOTE | 2023-12-25 11:34 | USB ---
Reason for Exam: Clinical finding. Patient History: Menarche at age 14. First Full-Term at age 28. Left ovary removed at age 46. Right ovary removed at age 46. Hysterectomy at age 46. Postmenopausal. Risk Values: Catherine 5 year model risk: 1.9%. NCI Lifetime model risk: 3.7%. Technique: Method: Whole Breast Handheld. Prior Study Comparison: 06/15/2015 Bilateral MG screening mammo w CAD - 2, Unknown. 05/05/2018 Bilateral MG screening mammo w CAD - 2, Unknown. Findings: The whole breast of the right breast, the axilla of the right breast and the retroareolar of the right breast were scanned. Whole right breast ultrasound including scanning of the subareolar region and axilla. No solid or cystic lesion exophytic lymphadenopathy. Overall Assessment: Negative, BI-RAD 1 Management: Screening Mammogram of both breasts in 1 year. Further clinical management of patient's breast pain. A clinical breast exam by your physician is recommended on an annual basis and results should be correlated with mammographic findings. This exam should not preclude additional follow-up of suspicious palpable abnormalities. Results were given to the patient verbally at the time of exam. Electronically signed and approved by: Andrea Giron M.D. Radiologist
== END | disposition home or self-care (01) ==
LOC: RADMAMWWP 08:44
PROVIDERS: ATTEND Family Medicine
DX: N64.59 Other signs and symptoms in breast (principal); Z78.0 Asymptomatic menopausal state
CPT/HCPCS: 77066; 76641; G0279; 77062

== ENCOUNTER → 2024-03-30 | Outpatient (CLI) | payer MEDICARE ==
[2024-03-30 17:15] LABS: ALT 21 U/L (8-44); AST 22 U/L (13-35); Albumin 4.5 g/dL (3.8-4.9); Albumin/Globulin Ratio 1.61 Ratio (1.60-3.17); Alkaline Phosphatase 93 U/L (41-126); BUN/Creat Ratio 23.88 Ratio (12.00-20.00); Blood Urea Nitrogen 38.2 mg/dL (9.0-27.0); Calcium 9.9 mg/dL (8.7-10.3); Carbon Dioxide 21.6 mmol/L (21.6-31.8); Chloride 102 mmol/L (96-109); Chol/HDL Ratio 3.78 Ratio; Globulin 2.8 g/dL (1.6-3.3); Glucose 83 mg/dL (70-110); LDL Cholesterol,Calculated 64.7 mg/dL (0.0-131.0); Potassium 5.7 mmol/L (3.5-5.5); Sodium 137 mmol/L (135-145); Total Bilirubin 0.4 mg/dL (0.3-1.2); Total Protein 7.3 g/dL (6.2-8.2)
== END | disposition home or self-care (01) ==
LOC: LABWHC1 10:36
PROVIDERS: ATTEND Internal Medicine Interventional Cardiology
DX: E78.2 Mixed hyperlipidemia (principal)
CPT/HCPCS: 36415; 80053; 80061

== ENCOUNTER → 2024-05-30 | Outpatient (CLI) | payer MEDICARE | END | disposition home or self-care (01) | LOC: LABWHC1 09:39 | PROVIDERS: ATTEND Internal Medicine Nephrology | DX: N18.32 Chronic kidney disease, stage 3b (principal) | CPT/HCPCS: 36415; 83735 ==

== ENCOUNTER → 2024-09-27 | Outpatient (CLI) | payer MEDICARE ==
[2024-09-27 15:17] LABS: ALT 16 U/L (8-44); AST 17 U/L (13-35); Albumin 4.2 g/dL (3.8-4.9); Alkaline Phosphatase 119 U/L (41-126); BUN/Creat Ratio 20.07 Ratio (12.00-20.00); Blood Urea Nitrogen 28.1 mg/dL (9.0-27.0); Carbon Dioxide 26.1 mmol/L (21.6-31.8); Chloride 104 mmol/L (96-109); Chol/HDL Ratio 3.36 Ratio; Glucose 95 mg/dL (70-110); LDL Cholesterol,Calculated 38.9 mg/dL (0.0-131.0); Potassium 4.7 mmol/L (3.5-5.5); Sodium 143 mmol/L (135-145); Total Bilirubin 0.4 mg/dL (0.3-1.2); Total Protein 7.2 g/dL (6.2-8.2)
== END | disposition home or self-care (01) ==
LOC: LABWHC1 09:24
PROVIDERS: ATTEND Internal Medicine Interventional Cardiology
DX: E78.2 Mixed hyperlipidemia (principal)
CPT/HCPCS: 36415; 80053; 80061